=== PATIENT | male | born 1945 | race Hispanic/Latino ===

== ENCOUNTER 2017-02-18 16:32 | Inpatient (IN) | payer MEDICARE ==
--- NOTE | 2017-02-18 16:54 | ED PDOC ---
Arrival/HPI - General Time Seen by Provider: 02/18/17 16:40 Historian: Patient, Spouse, EMS - History of Present Illness Narrative History of Present Illness (Text): 02/18/17 16:40 A 71 year old male, whose past medical history includes Hepatitis C, diabetes, and Stroke, is brought into the emergency department via EMS for a possible stroke. EMS states they were called for left sided weakness/numbness and a left sided facial droop. Per patient's states the patient fell yesterday because of weakness to the left side. does note patient started to slur today. They mention patient was recently discharge from Rehab after being admitted for a stroke. Patient and family deny any fever, chest pain, shortness of breath, dizziness or other complaints at this time. PMD: Dr. Strange Time/Duration: 24 hours Symptom Onset: Sudden Symptom Course: Unchanged Quality: Other Activities at Onset: Rest Context: Home Past Medical History - Provider Review Nursing Documentation Reviewed: Yes - Cardiac Hx Pacemaker: No - Pulmonary Hx Respiratory Disorders: No - Neurological Hx Paralysis: No - HEENT Hx HEENT Disorder: No - Renal Hx Renal Disorder: No - Endocrine/Metabolic Hx Diabetes Mellitus Type 2: Yes - Hematological/Oncological Hx Blood Transfusions: No - Integumentary Hx Dermatological Disorder: No - Musculoskeletal/Rheumatological Hx Musculoskeletal Disorders: Yes Hx Falls: Yes (FREQUENT FALLING) Hx Unsteady Gait: Yes - Gastrointestinal Hx Gastrointestinal Disorders: No - Genitourinary/Gynecological Hx Genitourinary Disorders: No - Psychiatric Hx Psychophysiologic Disorder: Yes (SMOKES CIGARETTES PPD,H/O DRINKING BEER DAILY) Hx Substance Use: No - Anesthesia Hx Anesthesia Reactions: No Hx Malignant Hyperthermia: No Family/Social History - Physician Review Nursing Documentation Reviewed: Yes Family/Social History: Unknown Family HX Smoking Status: Current Some Days Smoker Hx Alcohol Use: No (Denies) Hx Substance Use: No Allergies/Home Meds Allergies/Adverse Reactions: Allergies No Known Allergies Allergy (Verified 01/14/17 23:09) Home Medications: Home Meds Medication Instructions Recorded Confirmed Pantoprazole Sodium [Protonix] 40 mg PO DAILY 01/07/17 02/18/17 Albuterol/Ipratropium [Duoneb 3 3 ml IH Q6H 01/15/17 02/18/17 mg/0.5 mg (3 ml) UD] Aspirin [Ecotrin] 81 mg PO DAILY 01/15/17 02/18/17 Metformin HCl [Glucophage] 500 mg PO BID 01/15/17 02/18/17 Docusate [Colace] 2 cap PO HS 02/05/17 02/18/17 Insulin Human Regular [Novolin R] 2 unit SC ACHS PRN 02/05/17 02/18/17 Lactulose [Generlac] 30 ml PO DAILY 02/05/17 02/18/17 Potassium Chloride [K-Tab ER] 10 meq PO DAILY 02/05/17 02/18/17 Temazepam [Restoril] 15 mg PO HS 02/05/17 02/18/17 Review of Systems - Physician Review All systems were reviewed & negative as marked: Yes - Review of Systems Constitutional: absent: Fevers Respiratory: absent: SOB Cardiovascular: absent: Chest Pain Gastrointestinal: absent: Abdominal Pain, Nausea, Vomiting Neurological: Focal Weakness (left sided), Speech Changes (slurred). absent: Headache, Dizziness Physical Exam Vital Signs Reviewed: Yes Vital Signs Temp Pulse Resp BP Pulse Ox 02/18/17 19:18 74 23 117/72 97 02/18/17 17:00 97.8 F 80 25 H 128/77 98 Temperature: Afebrile Blood Pressure: Normal Pulse: Regular Respiratory Rate: Tachypneic Appearance: Positive for: Ill-Appearing Pain Distress: None Mental Status: Positive for: Alert and Oriented X 3 Finger Stick Blood Glucose: 127 - Systems Exam Head: Present: Atraumatic, Normocephalic Pupils: Present: PERRL Extroacular Muscles: Present: EOMI Conjunctiva: Present: Normal Mouth: Present: Moist Mucous Membranes Pharnyx: Present: Normal. No: ERYTHEMA, EXUDATE Neck: Present: Normal Range of Motion Respiratory/Chest: Present: Good Air Exchange Cardiovascular: Present: Regular Rate and Rhythm, Normal S1, S2. No: Murmurs Abdomen: Present: Normal Bowel Sounds. No: Tenderness, Distention, Peritoneal Signs Upper Extremity: Present: Other (drift in the left arm). No: Cyanosis, Edema Lower Extremity: Present: Other (no effort against gravity of the left leg). No : Edema Neurological: Present: GCS=15, CN II-XII Intact. No: Speech Normal (mild slurred speech), Motor Func Grossly Intact Skin: Present: Warm, Dry, Normal Color. No: Rashes Psychiatric: Present: Alert, Oriented x 3, Normal Insight, Normal Concentration Medical Decision Making ED Course and Treatment: 02/18/17 16:40 Impression: A 71 year old male with left sided weakness and slurred speech. Differential Diagnosis include but are not limited to: TIA vs stroke vs mass Plan: -- EKG -- Head CT -- Chest X-ray -- Labs -- Urinalysis -- Reassess and disposition Prior Visits: Notes and results from previous visits were reviewed. The patient last presented to the emergency department on 01/07/17 for evaluation of left sided weakness and slurred speech. Code stroke was initiated. Patient CT showed a bubacute versus old infarct left basal ganglia extending to the left lincoln radiata and left centrum semiovale. No hemorrhage. No other significant abnormality. Patient had a NIHSS score of 3. Progress Notes: EKG: Ordered, reviewed, and independently interpreted the EKG. Rate : 86 BPM Rhythm : NSR Interpretation : Normal intervals, normal axis, no ST/T changes. 02/18/17 17:[address]: Creator : Christine Martino COMPARISON: Comparison is made to the previous study dated 01/07/2017 and MRI of the brain dated 01/07/2017 FINDINGS: HEMORRHAGE: No intracranial hemorrhage. BRAIN: There is suspicious for slightly high attenuation mass lesion at the left basal ganglia surrounding with large vasogenic edema and measures approximately 2.5 centimeter in the transverse diameter. There is mass effect on the left lateral ventricle associated with xzia-pp-lwsac midline shift of approximately 6 millimeter. Iuus-iv-nzvwiroi atrophy and moderate white matter changes are also noted. VENTRICLES: The left lateral ventricle appears smaller in size likely secondary to mass effect and compression by the adjacent mass lesion. CALVARIUM: Unremarkable. PARANASAL SINUSES: Unremarkable as visualized. No significant inflammatory changes. MASTOID AIR CELLS: Unremarkable as visualized. No inflammatory changes. OTHER FINDINGS: None. IMPRESSION: Findings suspicious for mass lesion at the left basal ganglia surrounding with large vasogenic edema. The differential diagnosis also includes but not limited to hemorrhagic mass lesion versus less likely subacute intraparenchymal hemorrhage. Further assessment by enhanced MRI is recommended. Mass effect on the left lateral ventricle and approximately 6 millimeter left-to -right midline shift noted. Sbkn-ie-kbvijcsd atrophy and white matter changes. 02/18/17 17:47 Chest X-ray Impression: As read by me, No active disease. 02/18/17 20:02 Patient is not a tpa candidate as symptoms started yesterday as well as etiology being possible mass and hemorrhage not ruled out. Case was discussed with Dr. Reza Hernandez - will give steroids. Case also discussed with Dr. Soler for admission to her service. Dr. Soler will also start keppra. - Lab Interpretations Lab Results: 02/18/17 17:07 02/18/17 17:07 Lab Results 02/18/17 17:07: WBC 5.7 D, RBC 3.53, Hgb 10.9 L, Hct 33.9 L, MCV 96.0, MCH 30.9 , MCHC 32.2, RDW 16.2 H, Plt Count 197, MPV 10.1, Gran % 65.6, Lymph % (Auto) 20.9 L, [place] % (Auto) 9.9 H, Eos % (Auto) 3.3, Baso % (Auto) 0.3, Gran # 3.75, Lymph # 1.2, [place] # 0.6, Eos # 0.2, Baso # 0.02, PT 11.1, INR 1.03, APTT 24.3, Sodium 140, Potassium 3.9, Chloride 104, Carbon Dioxide 26, Anion Gap 14, BUN 13 , Creatinine 0.6, Est GFR ( Amer) > 60, Est GFR (Non-Af Amer) > 60, Random Glucose 123 H, Calcium 9.1, Total Bilirubin 0.8, AST 51, ALT 43, Alkaline Phosphatase 68, Lactate Dehydrogenase 973 H, Total Creatine Kinase 56, Troponin I < 0.01 D, NT-Pro-B Natriuret Pep 193, Total Protein 7.3, Albumin 3.7 , Globulin 3.6, Albumin/Globulin Ratio 1.0 L, Triglycerides 225 H, Cholesterol 149, LDL Cholesterol Direct 61, HDL Cholesterol 48, Lipase 198 I have reviewed the lab results: Yes - RAD Interpretation Radiology Orders: 02/18/17 16:40 HEAD W/O (CODE STROKE) [CT] Stat CHEST ONE VIEW [RAD] Stat - Medication Orders Current Medication Orders: Discontinued Medications Dexamethasone (Decadron Inj) 10 mg IVP STAT STA Stop: 02/18/17 18:38 Last Admin: 02/18/17 19:30 Dose: 10 MG IVP Administration Document 02/18/17 19:30 SB (Rec: 02/18/17 19:30 SB [id number]) Charges for Administration # of IVP Administrations 1 NIHSS Scale ([place]) Time Performed: 16:40 - How Severe is the Stoke Baseline Level of Consciousness: 0=Alert LOC to Questions: 0=Both comments correct LOC to commands: 0=Obeys both correctly Best Gaze: 0=Normal Visual: 0=No visual loss Facial: 0=Normal Motor Arm - Left: 2=Falls before 10 sec Motor Arm - Right: 0=No drift Motor Leg - Left: 3=No effort against gravity (falls immediately) Motor Leg - Right: 0=No drift Limb Ataxia: 0=Absent Sensory: 0=Normal Best Language: 0=No aphasia Dysarthia: 1=Mild to moderate slurring Extinction & Inattention (Neglect): 0=Normal, no object Score: 6 Risk Level: Mod Stroke Risk - Scribe Statement The provider has reviewed the documentation as recorded by the Scribe Ruel Lakhani Provider Scribe Attestation: All medical record entries made by the Scribe were at my direction and personally dictated by me. I have reviewed the chart and agree that the record accurately reflects my personal performance of the history, physical exam, medical decision making, and the department course for this patient. I have also personally directed, reviewed, and agree with the discharge instructions and disposition. Disposition/Present on Arrival - Present on Arrival Any Indicators Present on Arrival: No History of DVT/PE: No History of Uncontrolled Diabetes: No Urinary Catheter: No History Surgical Site Infection Following: None - Disposition Have Diagnosis and Disposition been Completed?: Yes Diagnosis: Weakness of left side of body Disposition: HOSPITALIZED Disposition Time: 18:40 Patient Plan: Admission, Telemetry Condition: SERIOUS
--- NOTE | 2017-02-18 16:58 | CT ---
PROCEDURE: CT HEAD WITHOUT CONTRAST. HISTORY: L side weakness, slurred speech COMPARISON: Comparison is made to the previous study dated 01/07/2017 and MRI of the brain dated 01/07/2017 TECHNIQUE: Axial computed tomography images were obtained through the head/brain without intravenous contrast. Radiation dose: Total exam DLP = 846.5 mGy-cm. This CT exam was performed using one or more of the following dose reduction techniques: Automated exposure control, adjustment of the mA and/or kV according to patient size, and/or use of iterative reconstruction technique. FINDINGS: HEMORRHAGE: No intracranial hemorrhage. BRAIN: There is suspicious for slightly high attenuation mass lesion at the left basal ganglia surrounding with large vasogenic edema and measures approximately 2.5 centimeter in the transverse diameter. There is mass effect on the left lateral ventricle associated with bovh-wg-aixty midline shift of approximately 6 millimeter. Lzgq-mg-sxqozydj atrophy and moderate white matter changes are also noted. VENTRICLES: The left lateral ventricle appears smaller in size likely secondary to mass effect and compression by the adjacent mass lesion. CALVARIUM: Unremarkable. PARANASAL SINUSES: Unremarkable as visualized. No significant inflammatory changes. MASTOID AIR CELLS: Unremarkable as visualized. No inflammatory changes. OTHER FINDINGS: None. IMPRESSION: Findings suspicious for mass lesion at the left basal ganglia surrounding with large vasogenic edema. The differential diagnosis also includes but not limited to hemorrhagic mass lesion versus less likely subacute intraparenchymal hemorrhage. Further assessment by enhanced MRI is recommended. Mass effect on the left lateral ventricle and approximately 6 millimeter kqml-au-cajba midline shift noted. Wdlb-nk-qqvqydkh atrophy and white matter changes.
[2017-02-18 17:21] LABS: ADD MANUAL DIFF? NO
[2017-02-18 17:26] LABS: BASO # 0.02 K/mm3 (0.0-2.0); BASO % 0.3 % (0.0-3.0); EOS # 0.2 (0.0-0.7); EOS % 3.3 % (1.5-5.0); GRAN # 3.75 (1.4-6.5); GRAN % 65.6 % (50.0-68.0); HEMATOCRIT 33.9 % (42.0-52.0); LYMPH # 1.2 (1.2-3.4); LYMPH % 20.9 % (22.0-35.0); MEAN CORPUSCULAR HEMOGLOBIN 30.9 pg (25.0-35.0); MEAN CORPUSCULAR HGB CONC 32.2 g/dl (31.0-37.0); MEAN PLATELET VOLUME 10.1 fl (7.0-11.0); MONO # 0.6 (0.1-0.6); MONO % 9.9 % (1.0-6.0); PLATELET COUNT 197 10^3/uL (120.0-450.0); RED CELL DISTRIBUTION WIDTH 16.2 % (11.5-14.5); WHITE BLOOD COUNT 5.7 10^3/ul (4.5-11.0)
[2017-02-18 17:35] LABS: INR 1.03 (0.93-1.08); PARTIAL THROMBOPLASTIN TIME 24.3 Seconds (23.7-30.8)
[2017-02-18 17:43] LABS: ALKALINE PHOSPHATASE 68 U/L (38-133); ALT/SGPT 43 U/L (7-56); AST/SGOT 51 U/L (15-59); BILIRUBIN,TOTAL 0.8 mg/dL (0.2-1.3); BLOOD UREA NITROGEN 13 mg/dL (7-21); CALCIUM 9.1 mg/dL (8.4-10.5); CARBON DIOXIDE 26 mmol/L (21-33); CHLORIDE 104 mmol/L (98-107); CHOLESTEROL 149 mg/dL (130-200); GFR AFRICAN-AMERICAN > 60; GLUCOSE,RANDOM 123 mg/dL (70-110); LIPASE 198 U/L (23-300); POTASSIUM 3.9 mmol/L (3.6-5.0); SODIUM 140 mmol/L (132-148); TOTAL PROTEIN 7.3 g/dL (5.8-8.3)
[2017-02-18 17:56] LABS: TROPONIN I < 0.01 ng/mL
[2017-02-18] MEDS ORDERED: Insulin Reg-MEDIUM-Coverage SC PRN (19:59)
[2017-02-18] MEDS: Albuterol-Ipratrop 3 mg / 0.5 (3 ml) UD IH SCH (21:22)
[2017-02-18] MEDS: Insulin Reg-HIGH-Coverage SC SCH (22:12)
[2017-02-18 22:13] LABS: PH,URINE 5.5 (4.7-8.0); URINE BILIRUBIN NEGATIVE (NEGATIVE); URINE BLOOD NEGATIVE (NEGATIVE); URINE GLUCOSE (UA) NEGATIVE (NEGATIVE); URINE KETONE NEGATIVE (NEGATIVE); URINE LEUKOCYTE ESTERASE NEGATIVE Leu/uL (NEGATIVE); URINE PROTEIN TRACE mg/dL (<30 mg/dL); URINE UROBILINOGEN 0.2 E.U./dL (<1 E.U./dL)
[2017-02-18 22:16] LABS: URINE APPEARANCE CLEAR (CLEAR); URINE COLOR YELLOW (YELLOW)
[2017-02-18 22:20] LABS: URINE BACTERIA MOD (NEG); URINE EPITHELIAL CELLS 0 - 2 /hpf (0-5)
[2017-02-18 22:21] LABS: URINE AMORPHOUS SEDIMENT FEW
[2017-02-18] MEDS: levETIRAcetam 1,500 MG in Sodium Chloride 0.9% 100 ML IV SCH (22:30)
--- NOTE | 2017-02-18 23:10 | HP ---
The patient is 71-year-old, seen and examined. The patient was known to me from previous admission. He was admitted on 01/07 with generalized weakness. At that point he had MRI of the brain done that showed he had left-sided subacute basal ganglia infarct. At the same admission he was found to have cavitary lesion. He was treated with 1 month of antibiotic in acute rehab in [place], and transferr ed to [facility]. He was just discharged 4 or 5 days ago. The patient's noticed that he was get ting increasingly weak and has facial droop, so she brought him to Emergency Room for further evaluat ion. PAST MEDICAL HISTORY: Significant for: 1. Hypertension. 2. Hyperlipidemia. 3. Newly diagnosed noninsulin-dependent diabetes. 4. Morbid obesity. 5. Basal ganglia infarct with right-sided weakness. SOCIAL HISTORY: Significant for heavy smoking, but he quit upon recent admission. No significant surgical history. ALLERGIES: He is not allergic to any medications. MEDICATIONS AT HOME: He is on Restoril 15 mg at bedtime, potassium 10 mEq daily. He is on ferrous s ulfate 325 twice a day, Colace 200 daily, Protonix 40 daily, metformin 500 twice a day, lactulose as needed, atorvastatin 20 mg at bedtime, aspirin 81 daily, and nebulizer treatment. SOCIAL HISTORY: He is , lives with his . REVIEW OF SYSTEMS: Significant for generalized weakness and facial droop. On examination he is awake and alert. Easily falls asleep. VITAL SIGNS: He is afebrile, pulse 80, respirations 23, blood pressure 117/72. LUNGS: Bilateral fair airflow; has bilateral soft crackles and rhonchi. HEART: S1, S2 audible. ABDOMEN: Soft, nontender, no rebound, no guarding. NEUROLOGICALLY: He is awake and alert, moves all extremities, has generalized weakness. LABORATORY EXAMINATION: WBC is 5.7, hemoglobin 10.9, hematocrit 33.9, platelets 197. PT 11.1, INR 1 .03. Chemistry: Sodium 140, potassium 3.9, chloride 104, CO2 of 26, BUN 13, creatinine 0.6, blood s ugar of 123. LFTs are within normal limit. LDH is 975, troponin 0.01. Triglycerides 225, total cho lesterol 149. He had CT scan of the brain done. Findings suspicious for mass lesion at the left basal ganglia surr ounding, with large vasogenic edema. Possibility of hemorrhagic mass lesion versus less likely subac vish intraparenchymal hemorrhage. Mass effect on the left lateral ventricle, and approximately 6 mm l eft to the right midline shift. ASSESSMENT: 1. Right-sided weakness and facial droop. 1. Questionable left basal ganglia. No mass effect. 2. Edema. 3. Hypertension. 4. Non-insulin dependent diabetes. 5. Bilateral lung cavitary lesions. 6. Deconditioning. PLAN: The patient will be admitted on telemetry. Will start him on IV steroids, monitor his blood s ugar. Will start him on Keppra. Dr. Ryan Moffett will be consulted for a CT-guided biopsy of lung le rosaura, and Dr. Parmar will be consulted. Will monitor his blood sugar closely. Turner Soler MD cc: [phone] TT: 02/18/2017 23:09:45 jn
[2017-02-19] MEDS: Albuterol-Ipratrop 3 mg / 0.5 (3 ml) UD IH SCH ×4 (03:47→19:20)
[2017-02-19 07:20] LABS: ADD MANUAL DIFF? NO
[2017-02-19 07:27] LABS: GRAN # 3.16 (1.4-6.5); GRAN % 69.9 % (50.0-68.0); HEMATOCRIT 31.7 % (42.0-52.0); LYMPH # 1.2 (1.2-3.4); LYMPH % 26.8 % (22.0-35.0); MEAN CELL VOLUME 95.8 fL (80.0-105.0); MEAN CORPUSCULAR HEMOGLOBIN 30.5 pg (25.0-35.0); MEAN CORPUSCULAR HGB CONC 31.9 g/dl (31.0-37.0); MEAN PLATELET VOLUME 10.2 fl (7.0-11.0); MONO # 0.2 (0.1-0.6); MONO % 3.3 % (1.0-6.0); PLATELET COUNT 205 10^3/uL (120.0-450.0); RED CELL DISTRIBUTION WIDTH 15.9 % (11.5-14.5); WHITE BLOOD COUNT 4.5 10^3/ul (4.5-11.0)
[2017-02-19 07:45] LABS: ALKALINE PHOSPHATASE 65 U/L (38-133); ALT/SGPT 47 U/L (7-56); AST/SGOT 40 U/L (15-59); BILIRUBIN,TOTAL 0.7 mg/dL (0.2-1.3); BLOOD UREA NITROGEN 8 mg/dL (7-21); CARBON DIOXIDE 29 mmol/L (21-33); CHLORIDE 104 mmol/L (98-107); GFR AFRICAN-AMERICAN > 60; GLUCOSE,RANDOM 134 mg/dL (70-110); POTASSIUM 3.9 mmol/L (3.6-5.0); SODIUM 140 mmol/L (132-148)
--- NOTE | 2017-02-19 08:42 | RAD ---
PROCEDURE: CHEST RADIOGRAPH, 1 VIEW HISTORY: stroke COMPARISON: 01/07/2017 FINDINGS: LUNGS: Clear. PLEURA: No pneumothorax or pleural fluid seen. CARDIOVASCULAR: Normal. OSSEOUS STRUCTURES: No significant abnormalities. VISUALIZED UPPER ABDOMEN: Normal. OTHER FINDINGS: None. IMPRESSION: No active disease.
[2017-02-19] MEDS: Dexamethasone 4 mg/1 ml IVP SCH ×3 (10:03→17:52)
[2017-02-19] MEDS: Insulin Reg-HIGH-Coverage SC SCH ×4 (10:04→21:57)
[2017-02-19] MEDS: levETIRAcetam 1,500 MG in Sodium Chloride 0.9% 100 ML IV SCH (10:04)
[2017-02-19] MEDS: Potassium Chloride 10 mEq ER Tab PO SCH (10:05)
[2017-02-19] MEDS: Pantoprazole 40 mg EC Tab PO SCH (10:05)
--- NOTE | 2017-02-19 12:04 | CON ---
DATE: 02/18/2017 NEUROLOGY CONSULTATION CHIEF COMPLAINT: CAT scan showing suspicious mass lesion of the left basal ganglia with surrounding large vasogenic edema. HISTORY OF PRESENTING ILLNESS: The patient is a 71-year-old man well-known from his past admission i n 12/2016 with past medical history of hypertension, dyslipidemia, efa-utunief-pozafiorh diabetes peg itus with the last A1c of 7.5, history of seizures on Keppra 500 mg p.o. b.i.d. was diagnosed with a brain neoplasm, with a history of left-sided subacute infarct in the basal ganglia adjacent to the co debra radiata. He was placed on aspirin with some mild residual right-sided weakness, who came in, an d was found to have a cavitary lesion when he was at [facility] for rehab, was transferred to [facility], came to the hospital, was noticing gradually increasing weakness, especially on the right s yves and right facial droop. Therefore, he came to the hospital for further evaluation. His CAT scan of the head, which a new finding to me, showing suspicious mass lesion of the left basal ganglia surrounding, with large vasogenic edema with mass effect in the left ventricle, approximatel y 6 mm left to right shift, which was not seen on the prior CAT scan, with an underlying left basal g anglia infarct in the past. Apparently, he was following commands. He has mild residual right-sided weakness and right facial dr oop. He is following commands otherwise. Blood pressures are stable. He was placed on Decadron 4 mg IV t.i.d. for vasogenic edema, and he is on aspirin and Lipitor for stroke prevention. MRI of the brain has been ordered. PAST MEDICAL HISTORY: Hypertension, hyperlipidemia, history of left basal ganglia infarct with resid ual right-sided weakness, insulin-dependent diabetes mellitus, morbid obesity, diagnosed with cavitar y lesion. SOCIAL HISTORY: Significant for heavy of smoking, quit upon recent admission. SURGICAL HISTORY: None. ALLERGIES: No known allergies. MEDICATIONS: Reviewed by nursing reconciliation sheet. REVIEW OF SYSTEMS: A 14-point review of systems is negative except for the HPI. PHYSICAL EXAMINATION: VITAL SIGNS: Temperature 97.5, pulse rate ____. Blood pressure is ____. Respiratory rate 20, oxyge n saturation 97% by room air. GENERAL: The patient is sitting up in bed in no acute distress. HEENT: Atraumatic, normocephalic. PERRLA. Extraocular muscles intact. NECK: Supple. No JVD, no adenopathy. LUNGS: Clear to auscultation with some mild decreased breath sounds. HEART: S1, S2, normal rate and rhythm. No murmurs, rubs, or gallops. ABDOMEN: Soft, nontender, nondistended. Bowel sounds present. EXTREMITIES: No clubbing, no cyanosis. Peripheral pulses are 2+ felt bilaterally. NEUROLOGIC: The patient is alert, oriented to person, place, ____ year. Speech is fluent without an y errors. He has mild dysarthria, but no aphasia noted. Cranial nerves II-XII are intact except for right facial droop. MOTOR: He has right upper and right lower extremity 4+ to 5-/5 right-sided weakness with prior left basal ganglia MCA, CVA. Left side upper and lower extremities are intact. Toes are upgoing bilatera lly. Sensory: Withdraws to localized noxious stimulus. Light touch is intact ____ calves bilateral ly, decreased vibration of the toes. DTRs 2+ throughout, 1 at the ankles. COORDINATION: Mksqir-jc-nphv intact, but ____ on the right due to mild residual right-sided weakness . LABORATORY DATA: Sodium is 140, potassium 3.9, chloride 104, carbon dioxide 29, BUN of 8, creatinine 0.5, random glucose 134. ASSESSMENT AND PLAN: This is a 71-year-old man with a history of hypertension, hyperlipidemia, and n on-insulin dependent diabetes mellitus with an A1c of 7.5 with a recent left basal ganglia infarct __ __ lincoln radiata, and residual right-sided weakness, who was at rehab and [facility], and also was fo und to have cavitary lesions in the lungs who came in ____ right-sided weakness and right facial droo p, and CAT scan of the head showed suspicious mass-like lesion in the left basal ganglia with surroun ding large vasogenic edema with mass effect in the left ventricle, which was not there on his prior i magings from 12/2016. His currently presenting symptoms are secondary to a left basal ganglia with ma ss lesion with surrounding large vasogenic edema. ____. At this time, I would recommend: 1. MRI of the brain to assess for further detailed description of the mass lesion. 2. Get a neurosurgical consult. 3. Investigate those cavitary lesions ____ malignancy. Get oncology on board. 4. Continue with aspirin and Lipitor for stroke prevention. 5. Keppra for seizure prophylaxis. 6. Keep his blood pressure between 140-180. Continue his metformin, insulin sliding scale. At this time, continue with current present medical management. ____ need acute rehab once the inves tigation of his left mass-type lesion on the left basal ganglia is investigated. Thank you for this consult. Akshat Hernandez MD cc: [phone] TT: 02/19/2017 12:00:18 Confirmation # [id number] Dictation # [id number] 02/19/2017 11:04:20
--- NOTE | 2017-02-19 12:55 | PN ---
DATE: 02/19/2017 SUBJECTIVE: The patient is a 71-year-old, seen and examined, seems to be awake and alert, able to co mmunicate. Still has scanty cough. No nausea, vomiting, no diarrhea. PHYSICAL EXAMINATION: VITAL SIGNS: He is afebrile, pulse 75, respirations 16, blood pressure 121/78. LUNGS: Bilateral fair airflow, no rhonchi or crackle. HEART: S1, S2 audible. No murmur. ABDOMEN: Soft, obese, nontender, no rebound, no guarding. NEUROLOGIC: He is awake and alert. No focal deficit. LABORATORY EXAMINATION: WBC is 4.5, hemoglobin 10.1, hematocrit 31.7, platelet 205. Chemistry: Sod ium 140, potassium 3.9, chloride 104, CO2 29, BUN 8, creatinine 0.5, blood sugar of 134. LFTs are wi thin normal limits. ASSESSMENT: 1. Questionable transient ischemic attack. No residual deficits. 2. Left basal ganglia infarct in lincoln radiata with central left-sided weakness. 3. Bilateral pulmonary cavitary lesions. 4. Morbid obesity. 5. Non-insulin dependent diabetes. 6. Hypertension. 7. History of smoking. PLAN: The patient is scheduled to have MRI of the brain done. For now he is on dexamethasone. Cont inue him on nebulizer treatment. He is on aspirin 81 daily. We will monitor blood sugars. He has b een started on Keppra. I also discussed with Dr. Parmar. He seems to agree that we should biopsy h is pulmonary lesions to determine if this is infectious or malignant, so Dr. Ryan Moffett is consulted . We will request for physical therapy evaluation also and we will continue to monitor his blood sug ar and his neurological status. Turner Soler MD cc: [phone] TT: 02/19/2017 12:54:18 Confirmation # [id number] Dictation # [id number] wilmar
[2017-02-19] MEDS ORDERED: Gadodiamide 287 MG/ML VIAL (20ML) IV ONE (13:25)
--- NOTE | 2017-02-19 15:37 | CARD ---
APPROVED REPORT EKG Measurement Heart [id number] [place] [id number] <Conclusion> Normal sinus rhythm Possible Left atrial enlargement Borderline ECG
--- NOTE | 2017-02-19 16:10 | MRI ---
PROCEDURE: MRI BRAIN WITH AND WITHOUT CONTRAST HISTORY: Left basal ganglia mass lesion COMPARISON: Noncontrast head CT from 02/18/2017 and 01/07/2017. MRI brain without and with intravenous contrast from 01/07/2017. TECHNIQUE: Multiplanar, multisequence MR images of the brain were obtained with and without intravenous contrast enhancement. 20 cc gadolinium was injected intravenously. FINDINGS: HEMORRHAGE: There is no acute intracranial hemorrhage with DWI: No evidence of an acute or early subacute infarction. BRAIN PARENCHYMA: There is 2.2 x 2.3 cm avidly enhancing round mass in the left basal ganglia extending to the lincoln radiata are with significant surrounding vasogenic edema, mass effect and effacement of the right lateral ventricle and 5 mm midline shift from left to right. There is also increased magnetic susceptibility CT in the enhancing mass related to old hemorrhage. There is significant vasogenic edema extends to the right frontal, parietal and temporal lobes. Edema also extends into the left cerebral peduncle, caudate nucleus and thalamus. There is no evidence of uncal herniation. Also noted is a 12 mm enhancing lesion in the left anterior insula with surrounding vasogenic edema. There are mild chronic microangiopathic changes. There is no extra-axial fluid collection. ENHANCEMENT: There is normal intravascular enhancement. There is no abnormal leptomeningeal enhancement. VENTRICLES: Effacement of the left lateral ventricle. Normal size of the right lateral, 3rd and 4th ventricles. CRANIUM: There is normal bone marrow signal pattern. ORBITS: Grossly unremarkable. PARANASAL SINUSES/MASTOIDS: Predominantly clear. VASCULAR SYSTEM: There are normal signal voids in the larger intracranial arteries. OTHER FINDINGS: None . IMPRESSION: 1. Interval significant increase in size of left basal ganglia mass lesion with significant surrounding vasogenic edema, mass effect and effacement of the left lateral ventricle and 5 mm midline shift from left to right. No evidence of uncal herniation. 2. Also noted is a 12 mm enhancing lesion in the left anterior insula. The constellation of findings is concerning for metastatic lesions. Primary neoplasm such as glioblastoma is a less likely consideration given past presence of hemorrhagic products and 2nd lesion.
[2017-02-19] MEDS: levETIRAcetam 500mg IVPB 100 ML IV SCH (21:58)
--- NOTE | 2017-02-19 23:07 | CON ---
DATE: 02/19/[address] Parmar. CHIEF COMPLAINT: Facial droop, weakness. HISTORY OF PRESENT ILLNESS: The patient is a 71-year-old white male, a resident of [facility] discharged recently with increasing weakness and facial droop, as per the patient's who was at the bedside, with the patient seen sitting up in bed on the telemetry floor. The patient is known to suffer from lung lesions with tissue diagnosis planned for tomorrow with biopsy by Dr. Ryan Moffett. He is otherwise in no acute distress at this time. He also is now known to have a mass lesion in th e left basal ganglia, with the patient in no acute distress at this time. ALLERGIES: No known allergies. MEDICATIONS: Include Restoril, potassium, iron, Colace, Protonix, metformin, lactulose, atorvastatin and aspirin, nebulizer treatments. PAST MEDICAL HISTORY: Significant for hepatitis C, non-insulin diabetes mellitus, dyslipidemia, hype rtension, obesity, new basal ganglia infarct with right-sided weakness. Also significant for bilater al cavitary lung lesions, with anemia, status post transfusion? FAMILY HISTORY AND SOCIAL HISTORY: He is , at the bedside, former heavy smoker use of gr eater than 50 pack years smoking, quit recently. History of heavy alcohol use, also quit recently, o therwise noncontributory. REVIEW OF SYSTEMS: Essentially negative to questioning except as above. PHYSICAL EXAMINATION: VITAL SIGNS: Temperature 98.4, pulse 76, respirations 20, blood pressure 125/82, with a pulse ox of 97%. HEENT: Unremarkable. NECK: Supple. HEART: Regular rate, occasional ectopic beat. LUNGS: Decreased breath sounds. ABDOMEN: Obese, soft, and nontender. EXTREMITIES: No edema. SKIN: Warm, dry and clear. 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 LABORATORY DATA: The patient's labs were done. White blood cell count of 4.5, hemoglobin 10.1, janessa tocrit 31.7, platelet count of 205,000 with a chem metabolic panel completely within normal range exc ept for nonfasting glucose 134. LDH yesterday of 973. The urinalysis showed trace of protein, otherwise negative. His INR was 1.03 yesterday. However, th e patient did have TB testing acute FT done on 01/10/2017 and 01/16/2017 showing intermediate results, with Dr. Posadas having seen the patient in the past. We will ask for reconsult as per Dr. Jeff pepe's recommendation. The patient's testing included an MRI of the brain done earlier today. It was read as interval incre ase in size of left basal ganglia mass lesion with significant surrounding vasogenic edema, mass effe ct and effacement of the left lateral ventricle 5 mm midline shift from left to right, no evidence of uncal herniation, 12 mm enhancing lesion in the left anterior insula, constellation finding concerni ng for metastatic lesions, primary neoplastic glioblastoma is less likely. The patient had a CT scan of the head done yesterday. It was read as findings suspicious for mass le rosaura left basal ganglia with surrounding large vasogenic edema, mass effect lateral ventricle approxi mately 6 mm left to right midline shift. The patient had an EKG done yesterday. It was read as normal sinus rhythm, possible left atrial enla rgement. Chest x-ray was done yesterday. It was read as no active disease; however, CT scan of the chest done on 01/27/2017 done in [place] was read as persistent bilateral lower lobe soft tissue mass lesions, persistent 9 mm nodule right upper lobe as well as worsening hazy opacity, ____ opacity righ t upper lobe since previous exam, central bronchiectasis, small bilateral pleural effusions, pulmonar y hypertension. ASSESSMENT: Bilateral lower lobe cavitary lesions infectious versus neoplastic for biopsy tomorrow, metastatic lesions to the brain, right-sided weakness, facial droop, rule out cerebrovascular acciden t, hypertension, non-insulin diabetes mellitus, deconditioning, anemia. PLAN: After conversation with Dr. Parmar we are to await tissue diagnosis, to continue present medi milana regimen as per Dr. Soler with medications to include Decadron, DuoNeb, Ecotrin, insulin coverag e, Keppra, potassium, Lipitor, Protonix, Glucophage. Prognosis for this patient is guarded. We will monitor clinically and with labs. Amrit Godinez MD cc: [phone] TT: 02/19/2017 23:06:14 Confirmation # [id number] Dictation # [id number] jn
[2017-02-20] MEDS: Albuterol-Ipratrop 3 mg / 0.5 (3 ml) UD IH SCH ×4 (02:23→19:53)
[2017-02-20] MEDS ORDERED: Sodium Chloride 0.45% 1,000 ML IV SCH (07:00)
[2017-02-20 07:17] LABS: ADD MANUAL DIFF? NO
[2017-02-20 07:28] LABS: GRAN # 5.38 (1.4-6.5); GRAN % 71.6 % (50.0-68.0); HEMATOCRIT 31.4 % (42.0-52.0); LYMPH # 1.5 (1.2-3.4); LYMPH % 19.9 % (22.0-35.0); MEAN CELL VOLUME 95.4 fL (80.0-105.0); MEAN CORPUSCULAR HEMOGLOBIN 31.3 pg (25.0-35.0); MEAN CORPUSCULAR HGB CONC 32.8 g/dl (31.0-37.0); MEAN PLATELET VOLUME 10.2 fl (7.0-11.0); MONO # 0.6 (0.1-0.6); MONO % 8.5 % (1.0-6.0); PLATELET COUNT 219 10^3/uL (120.0-450.0); RED CELL DISTRIBUTION WIDTH 16.2 % (11.5-14.5); WHITE BLOOD COUNT 7.5 10^3/ul (4.5-11.0)
[2017-02-20] MEDS ORDERED: Iohexol 350 MG/100 ML VIAL ONE (08:00)
[2017-02-20 08:03] LABS: ALB/GLOB RATIO 1.1 (1.1-1.8); ALKALINE PHOSPHATASE 55 U/L (38-133); ALT/SGPT 43 U/L (7-56); AST/SGOT 42 U/L (15-59); BILIRUBIN,TOTAL 0.7 mg/dL (0.2-1.3); BLOOD UREA NITROGEN 10 mg/dL (7-21); CALCIUM 9.1 mg/dL (8.4-10.5); CARBON DIOXIDE 29 mmol/L (21-33); CHLORIDE 103 mmol/L (98-107); GFR AFRICAN-AMERICAN > 60; GLUCOSE,RANDOM 108 mg/dL (70-110); POTASSIUM 3.8 mmol/L (3.6-5.0); SODIUM 141 mmol/L (132-148); TOTAL PROTEIN 6.9 g/dL (5.8-8.3)
[2017-02-20] MEDS: Insulin Reg-HIGH-Coverage SC SCH ×4 (08:18→22:23)
--- NOTE | 2017-02-20 09:04 | CT ---
CT chest with IV contrast Indication: rule out cavitary lesions / masses Technique: Contiguous axial images were obtained through the chest with intravenous contrast enhancement. Sagittal and coronal reconstructions were generated and reviewed. This CT exam was performed using 1 or more of the falling dose reduction techniques: Automated exposure control, adjustment of the MAA and/or kV according to patient size, and/or use of iterative reconstruction technique. IV Contrast: 150 mL Omnipaque 350 Radiation dose (DLP): 646.93 MGy-cm. Comparison: Chest x-ray performed 02/18/17. CT chest without contrast performed 01/08/17 Findings: Visualized portions of the inferior thyroid gland appear unremarkable. The mediastinal and hilar vascular structures appear grossly unremarkable. The heart appears within normal limits of size. Coronary artery calcifications. No large central pulmonary embolus identified. Question artifact versus filling defect within the left upper lobe pulmonary artery branch (series 2, image 37). Bilateral cavitary mass is within the lower lobes, 1.7 cm left lower lobe and 2.0 cm right lower lobe adjacent to the diaphragm, similar prior study. Bibasilar atelectasis. No pleural effusion. No pneumothorax. Limited visualization of the upper abdomen demonstrates 18 mm probable splenule. Otherwise unremarkable. Degenerative changes of the spine. Mild kyphosis. Impression: Bilateral cavitary mass is within the lower lobes, 1.7 cm left lower lobe and 2.0 cm right lower lobe adjacent to the diaphragm, similar prior study. Considerations include cavitary malignant neoplasm versus infection (such as tuberculosis or fungal infection). Filling defect consistent with thrombus involving left upper lobe pulmonary artery branch. Findings discussed with the patient's RN Mia on 02/20/17 at 8:55 a.m.
[2017-02-20] MEDS: Potassium Chloride 10 mEq ER Tab PO SCH (09:51)
[2017-02-20] MEDS: Pantoprazole 40 mg EC Tab PO SCH (09:51)
[2017-02-20] MEDS: Dexamethasone 4 mg/1 ml IVP SCH ×3 (09:51→17:32)
[2017-02-20] MEDS: levETIRAcetam 500mg IVPB 100 ML IV SCH ×2 (09:52→22:04)
[2017-02-20] MEDS ORDERED: Midazolam 2 MG/2 ML VIAL ONE (10:44)
--- NOTE | 2017-02-20 12:18 | PN ---
DATE: 02/20/2017 SUBJECTIVE: The patient is a 71-year-old, seen and examined, lying in bed, complained of left-sided chest pain and went through the chest posteriorly also, still has scanty cough. No fever or chills, no nausea, vomiting, no diarrhea. PHYSICAL EXAMINATION: VITAL SIGNS: He is afebrile, pulse 59, respirations 22, blood pressure 134/75. LUNGS: Bilateral fair airflow, no rhonchi or crackle. HEART: S1, S2 audible. ABDOMEN: Soft, obese, nontender, no rebound, no guarding. NEUROLOGIC: He is awake and alert, communicative. EXTREMITIES: Bilateral leg, no edema. LABORATORY EXAMINATION: WBC 7.5, hemoglobin 10.3, hematocrit 31.4, platelet 219. Chemistry: Sodiu m 141, potassium 3.8, chloride 103, CO2 29, BUN 10, creatinine 0.6, blood sugar of 108. He had CT sc an of the chest done today that shows bilateral cavitary masses within the lower lobes, 1.7 cm left l ower lobe and 2 cm right lower lobe adjacent to the diaphragm similar to prior study and there is a q uestionable thrombus in the left upper lobe. ASSESSMENT: 1. Bilateral lower lung cavitary lesions, probably neoplastic because patient already got antibioti c for 4-6 weeks, antifungal and antibiotic. Questionable metastatic brain lesion. 2. History of left basal ganglia mass with vasogenic edema. 3. Hypertension. 4. Morbid obesity. 5. Noninsulin dependent diabetes. 6. Deconditioning and difficulty walking. PLAN: The patient is getting a tissue diagnosis. He is scheduled for CT-guided biopsy. We will fol low up the result. In the meantime, we will keep him on dexamethasone, monitor his blood sugar. Con tinue him on aspirin. We will discuss with Dr. Parmar. Probably, we can start him on Eliquis on Pr adaxa. Because of questionable malignancy, he is high risk for pulmonary embolism anyway. I will or tommy for bilateral leg Doppler study to rule out a DVT because he is not very ambulatory. We will ree valuate the patient in a.m. Turner Soler MD cc: [phone] TT: 02/20/2017 12:17:49 Confirmation # [id number] Dictation # [id number] tn
--- NOTE | 2017-02-20 13:55 | RAD ---
HISTORY: lt lung bx COMPARISON: 02/18/2017 FINDINGS: LUNGS: Left lung density. No evidence of pneumothorax PLEURA: No significant pleural effusion identified, no pneumothorax apparent. CARDIOVASCULAR: Normal. OSSEOUS STRUCTURES: No significant abnormalities. VISUALIZED UPPER ABDOMEN: Normal. OTHER FINDINGS: None. IMPRESSION: No evidence of pneumothorax
--- NOTE | 2017-02-20 17:33 | CT ---
PROCEDURE: CT guided left lower lobe lung biopsy. HISTORY: Cavitary pulmonary nodules. Brain lesion PHYSICIAN(S): Ryan Moffett MD. TECHNIQUE: The relative risks and indications of the procedure were explained to the patient and consent obtained. The patient was placed prone on the CT scanner and preliminary images through the lung bases obtained. Conscious sedation and monitoring were provided throughout the procedure by a nurse. There is an irregular cavitary 2 cm opacity in the peripheral aspect of left lower lobe.. A left posterior oblique approach was selected and the area prepped and draped in the usual sterile fashion. 1% Xylocaine was used to anesthetize the skin and soft tissues. A 19 gauge guiding needle was advanced into the 2 cm left lower lobe nodule. Its position was confirmed with CT. Using coaxial technique, multiple core biopsies were obtained. The postprocedure images show no evidence of large pneumothorax or significant hemorrhage. IMPRESSION: 1. CT-guided left lower lobe lung biopsy as described above.
--- NOTE | 2017-02-20 17:46 | CP.PCM.CON ---
History of Present Illness - History of Present Illness History of Present Illness: 71 year old male with PMH of hepatitis C, DM, history of brain tumor (which apparently resolved without specific treatment), obesity with BMI 32 was recently admitted in [facility] for CVA. He was also noted have cavitary lesions in the lower lobes. He was treated for bacterial pneumonia then. He is now back admitted for possible new onset stroke or brain tumor and work up is in progress. Infectious diseases consult is requested to re-evaluate the patient's cavitary lesions in the lungs. Currently the patient is comfortable in bed. He has no fever or chills, no nausea or vomiting, no chest pain, no SOB, no cough or colds, no diarrhea, no dysuria, no chest pain, no abdominal pain. He recently came from rehab. He has not traveled outside of [place] in the past 3 months. Review of Systems - Review of Systems All systems: reviewed and no additional remarkable complaints except (as per HPI ) Past Patient History - Past Medical History & Family History Past Medical History?: Yes - Past Social History Smoking Status: Former Smoker - CARDIAC Hx Hypertension: Yes - PULMONARY Hx Respiratory Disorders: No - NEUROLOGICAL HX Cerebrovascular Accident: Yes - HEENT Hx HEENT Problems: No - RENAL Hx Chronic Kidney Disease: No - ENDOCRINE/METABOLIC Hx Diabetes Mellitus Type 2: Yes - HEMATOLOGICAL/ONCOLOGICAL Hx Hepatitis C: Yes - INTEGUMENTARY Hx Dermatological Problems: No - MUSCULOSKELETAL/RHEUMATOLOGICAL Hx Falls: Yes Hx Unsteady Gait: Yes (frequent falling) - GASTROINTESTINAL Hx Gastrointestinal Disorders: No - GENITOURINARY/GYNECOLOGICAL Hx Genitourinary Disorders: No - PSYCHIATRIC Hx Substance Use: No Other/Comment: smoking - 1 ppd, non since december - SURGICAL HISTORY Hx Surgeries: No - ANESTHESIA Hx Anesthesia Reactions: No Hx Malignant Hyperthermia: No Meds Allergies/Adverse Reactions: Allergies Allergy/AdvReac Type Severity Reaction Status Date / Time No Known Allergies Allergy Verified 01/14/17 23:09 - Medications Medications: Current Medications Albuterol/Ipratropium (Duoneb 3 Mg/0.5 Mg (3 Ml) Ud) 3 ml IH Q6H JESSICA Last Admin: 02/19/17 19:20 Dose: 3 ml Aspirin (Ecotrin) 81 mg PO DAILY JESSICA Last Admin: 02/19/17 10:03 Dose: 81 mg Atorvastatin Calcium (Lipitor) 20 mg PO HS JESSICA Last Admin: 02/18/17 22:30 Dose: 20 mg Dexamethasone (Decadron Inj) 4 mg IVP TID [facility] Last Admin: 02/19/17 17:52 Dose: 4 mg Docusate Sodium (Colace) 200 mg PO HS [facility] Last Admin: 02/18/17 22:16 Dose: Not Given Levetiracetam (Keppra 500mg Ivpb) 100 mls @ 460 mls/hr IV Q12 [facility] Sodium Chloride (Sodium Chloride 0.45%) 1,000 mls @ 80 mls/hr IV .[id number] [facility] Stop: 02/20/17 18:00 Insulin Human Regular (Humulin R Med) 0 units SC ACHS PRN; Protocol PRN Reason: Serum glucose Insulin Human Regular (Humulin R High) 0 units SC ACHS JESSICA PRN Reason: Protocol Last Admin: 02/19/17 17:54 Dose: Not Given Metformin HCl (Glucophage) 500 mg PO BID [facility] Last Admin: 02/19/17 17:53 Dose: 500 mg Pantoprazole Sodium (Protonix Ec Tab) 40 mg PO DAILY [facility] Last Admin: 02/19/17 10:05 Dose: 40 mg Potassium Chloride (Klor-Con 10) 10 meq PO DAILY [facility] Last Admin: 02/19/17 10:05 Dose: 10 meq Physical Exam - Constitutional Appears: Non-toxic, No Acute Distress - Head Exam Head Exam: NORMAL INSPECTION - ENT Exam ENT Exam: Mucous Membranes Moist - Neck Exam Neck exam: Negative for: Lymphadenopathy, Meningismus - Respiratory Exam Respiratory Exam: Decreased Breath Sounds - Cardiovascular Exam Cardiovascular Exam: +S1, +S2 - GI/Abdominal Exam GI & Abdominal Exam: Soft. absent: Tenderness Results - Vital Signs Recent Vital Signs: Last Vital Signs Temp 98.4 F 02/19/17 18:00 Pulse 76 02/19/17 18:00 Resp 20 02/19/17 18:00 BP 125/82 02/19/17 18:00 Pulse Ox 97 02/19/17 06:00 - Labs Result Diagrams: 02/20/17 07:00 02/20/17 07:00 Labs: Laboratory Results - last 24 hr 02/18/17 02/18/17 02/18/17 21:12 21:45 22:10 WBC RBC Hgb Hct MCV MCH MCHC RDW Plt Count MPV Gran % Lymph % (Auto) [place] % (Auto) Eos % (Auto) Baso % (Auto) Gran # Lymph # [place] # Eos # Baso # Sodium Potassium Chloride Carbon Dioxide Anion Gap BUN Creatinine Est GFR ( Amer) Est GFR (Non-Af Amer) POC Glucose (mg/dL) 124 H Random Glucose Calcium Total Bilirubin AST ALT Alkaline Phosphatase Total Protein Albumin Globulin Albumin/Globulin Ratio Urine Color Yellow Urine Appearance Clear Urine pH 5.5 Ur Specific [place] 1.025 Urine Protein Trace H Urine Glucose (UA) Negative Urine Ketones Negative Urine Blood Negative Urine Nitrate Negative Urine Bilirubin Negative Urine Urobilinogen 0.2 Ur Leukocyte Esterase Negative Urine RBC 1 - 3 Urine WBC 2 - 5 Ur Epithelial Cells 0 - 2 Amorphous Sediment Few Urine Bacteria Mod Urine Other Uyeast Blood Type O POSITIVE Antibody Screen Negative 02/19/17 06:45 WBC 4.5 D RBC 3.31 L Hgb 10.1 L Hct 31.7 L MCV 95.8 MCH 30.5 MCHC 31.9 RDW 15.9 H Plt Count 205 MPV 10.2 Gran % 69.9 H Lymph % (Auto) 26.8 [place] % (Auto) 3.3 Eos % (Auto) 0.0 L Baso % (Auto) 0.0 Gran # 3.16 Lymph # 1.2 [place] # 0.2 Eos # 0.0 Baso # 0.00 Sodium 140 Potassium 3.9 Chloride 104 Carbon Dioxide 29 Anion Gap 11 BUN 8 Creatinine 0.5 Est GFR ( Amer) > 60 Est GFR (Non-Af Amer) > 60 POC Glucose (mg/dL) Random Glucose 134 H Calcium 9.0 Total Bilirubin 0.7 AST 40 ALT 47 Alkaline Phosphatase 65 Total Protein 7.0 Albumin 3.4 Globulin 3.5 Albumin/Globulin Ratio 1.0 L Urine Color Urine Appearance Urine pH Ur Specific [place] Urine Protein Urine Glucose (UA) Urine Ketones Urine Blood Urine Nitrate Urine Bilirubin Urine Urobilinogen Ur Leukocyte Esterase Urine RBC Urine WBC Ur Epithelial Cells Amorphous Sediment Urine Bacteria Urine Other Blood Type Antibody Screen Assessment & Plan - Assessment and Plan (Free Text) Plan: Assessment Multiple small cavitary lesions in the lower lobes of both lungs, - work up last month did not yield septic emboli or endocarditis - need to rule out malignancy; unlikely TB (usually TB would have one large apical cavity, would have mediastinal lymph node involvement, has no history of exposure, has no specific symptoms, even thoug the Quantiferon TB test then was indeterminate) - work up from previous month as did not proveSarcoidosis, fungal infections or Granulomatous polyangiitis (formerly Mark's granulomatosis) - S/P biopsy of cavitary lesion CT-guided today Subacute left basal ganglia CVA hepatitis C DM history of brain tumor (which apparently resolved without specific treatment) obesity with BMI 32 Plan Patient was previously treated with antibiotics and antifungals but no change in size of cavities - will follow up results of the biopsy Will monitor clinically
--- NOTE | 2017-02-20 22:53 | US ---
HISTORY: Leg pain and swelling. Evaluate for DVT PHYSICIAN(S): Ryan Moffett MD. TECHNIQUE: Duplex sonography and color-flow Doppler with graded compression were used to evaluate the deep venous systems of both lower extremities. The exam is limited by edema FINDINGS: The visualized deep venous systems of both lower extremities are sonographically normal and compressible. Normal wave forms and augmentation are seen. There is no sonographic evidence for deep venous thrombosis in the visualized segments of both lower extremities. IMPRESSION: No sonographic evidence for deep venous thrombosis in the visualized segments of both lower extremities.
[2017-02-20] MEDS ORDERED: Enoxaparin 60 mg Syringe SC STA (23:13)
--- NOTE | 2017-02-20 23:35 | PN ---
DATE: 02/20/2017 The patient is in room 263, bed 1. REASON FOR CONSULTATION: This patient was seen by us in the office initially last week for duane whitehead and recommending treatments for newly discovered cavitary lesions in both lung bases bilaterally, a ssociated with what was then thought to be a basal ganglia infarct on the left side with residual rig ht-sided weakness. Had presented with mass effect initially at [facility] and then later on admi tted to [facility]. Subsequent scans that were done of the brain showed that there was i mprovement that was more consistent with an infarct rather than a mass per se. Cavitating lesions we re initially treated empirically as infectious with several weeks of antibiotic therapy. The patient 's steroids and Keppra with tapered and DC'd and patient had come to see us as an outpatient for cecilia edge and we have scheduled him for a PET scan followed by planned biopsy of one of these lesions to r ule out infectious versus malignant origin but the patient in the interim got readmitted to the [facility] with collapse and fall at home, hurt his this back along with weakness and again new onset of dys arthria, which appears to be improving along with facial droop, which appears to be improving after c oming into the hospital. The patient has been restarted back on Keppra and Decadron and he just unde rwent a CT-guided biopsy of the lung early this morning. PAST MEDICAL HISTORY: Significant for hepatitis C, which was discovered recently also, has not been treated, non-insulin dependent insulin diabetes mellitus, which got worse with the steroids, dyslipid emia, hypertension, marked obesity and bilateral cavitary lesions, which was discovered recently. SOCIAL HISTORY: Definitely positive for the fact that he is a heavy smoker and has a [id number] hi story of smoking, history of ethanol abuse until recently. Subjectively, the patient after the procedure is complaining of significant amount of pain on the sit e where he had the biopsy on the left side for which he got some pain medicines. When I asked him to turn over in the bed to look at the site, he was able to do so. The patient denies any history of n ausea, vomiting, fevers or chills since admission to the hospital. Denies any history of headaches. He describes the pain at the biopsy site to have at least a 10. This combined with the fact that he fell as well. The patient is examined in bed. He still has scanty cough. OBJECTIVE: VITAL SIGNS: Stable. The patient's is by the bedside. Pulse is 59, respirations 22 and blood pressure 134/75. HEENT: Head is normocephalic, atraumatic. Examination of the oropharynx reveals no oropharyngeal le sions. NECK: Supple. There is no adenopathy. No jugular venous distention. LUNGS: Reveals them to be relatively clear with decreased breath sounds at the bases. No rhonchi or rales are heard. HEART: Reveals S1 and S2 to be normal. No gallop is heard. ABDOMEN: Soft, obese, nontender and no masses per se are felt. EXTREMITIES: Reveals no cyanosis, clubbing or edema. NEUROLOGIC: The patient is awake, alert and oriented with mild right-sided weakness, but is able to communicate and has no significant findings other than the weakness. LABORATORY DATA: From today shows a white count of 7.5, hemoglobin 10.3, hematocrit 31 and platelet count 219,000. Sodium is 141, K is 3.8, chloride is 103, CO2 is 29, BUN is 10, creatinine 0.6 and bl ood sugar is 108. I reviewed the CT of the head and CT of the chest that he had done today. CT of the head was done on the day of admission. CT of his chest is significant for the fact that the patient has bilateral ca vitary masses in the lower lobes, the one in the left lower lobe is 1.7 cm that was biopsied. The one of the right lower lobe is 2 cm adjacent to the diaphragm. In the CAT scan of the chest there is al so a filling defect with thrombus consistent with thrombus in the left upper lobe pulmonary artery br anch which is of concern to me. CAT scan of the head revealed a mass-like lesion in the left basal g anglia with vasogenic edema, unclear whether this is a tumor that is present, was not so prominent wh ile the patient was on steroids, now has become more apparent and there is also mass effect on the le ft lateral ventricle with some midline shift for about 6 mm, most consistent with increasing edema an d most likely related to probably metastatic cancer, unlikely to be of infectious origin at this time . ASSESSMENT NOTES AND PLAN: A detailed discussion with the patient and I spoke with his . Will wa it for the biopsies. I have spoken to the pathologist upon receiving of the specimen that has been se nt for not only histologic diagnosis, but for cultures as well, including special stains for AFB and fungi. Our first differential diagnosis however is lung cancer metastatic to the brain, the backgrou nd history of having hepatitis C, hypertension, morbid obesity, lqr-ybprljb-eeojnroef diabetes, decon ditioning and difficulty in walking and failure to thrive. One of the rare but possible differential diagnosis in the background history of having discovered to have hepatitis C would be central nervou s system and lung lymphoma as well, which can present and is not unusual, but not that common as well . In view of the fact that we do see a filling defect, I put a call in to vascular, Dr. Ryan Moffett to talk to him what his opinion would be. The patient has had a Doppler study results of the lower e xtremities, which are not yet available. Despite the fact that if it is even positive, we have a cat ch 22 situation because the patient has a lesion in the brain which is hemorrhagic or at least there was hemorrhage in the lesion prior to it in the prior MRIs and which is of concern to me at this poin t that if we give blood thinners it could be cause it to progressively worsen. On the other hand, on ce we have a histologic diagnosis and we know it is a malignancy, then we can radiate the brain. Onc e the brain is radiated, it may be safer to start a blood thinner. The standard of care for patients with metastatic cancer at this time is still low molecular weight heparin rather than factor X inhib itors though on individualized basis, we could choose a drug such as Pradaxa or Eliquis. I will disc uss in detail my findings with Dr. Soler as well. In the meantime, will be cautious. I requested her to get a pulmonary consultation on board as well. Will recommend sequential compression stocking s if the DVT study for the lower extremity is negative. The lesions could also cause pelvic vein thr ombosis that could be a source of the clot, so the important issue here is as long as he does not det eriorate respiratory rodriguez, it may be rodriguez to just do an expectant wait and watch approach. Labs for a.m. have been requested. The patient will be monitored very carefully on the telemetry unit for now . Carolyn Parmar MD cc: [id number] TT: 02/20/2017 23:34:21 Confirmation # [id number] Dictation # [id number] sn
[2017-02-21] MEDS: Albuterol-Ipratrop 3 mg / 0.5 (3 ml) UD IH SCH ×5 (01:43→23:25)
[2017-02-21 07:28] LABS: ADD MANUAL DIFF? NO
[2017-02-21 07:31] LABS: BASO # 0.01 K/mm3 (0.0-2.0); BASO % 0.1 % (0.0-3.0); GRAN # 4.73 (1.4-6.5); GRAN % 69.4 % (50.0-68.0); HEMATOCRIT 30.5 % (42.0-52.0); LYMPH # 1.5 (1.2-3.4); LYMPH % 21.3 % (22.0-35.0); MEAN CELL VOLUME 95.9 fL (80.0-105.0); MEAN CORPUSCULAR HEMOGLOBIN 30.8 pg (25.0-35.0); MEAN CORPUSCULAR HGB CONC 32.1 g/dl (31.0-37.0); MEAN PLATELET VOLUME 9.8 fl (7.0-11.0); MONO # 0.6 (0.1-0.6); MONO % 9.2 % (1.0-6.0); PLATELET COUNT 191 10^3/uL (120.0-450.0); RED CELL DISTRIBUTION WIDTH 16.2 % (11.5-14.5); WHITE BLOOD COUNT 6.8 10^3/ul (4.5-11.0)
[2017-02-21 07:41] LABS: ALKALINE PHOSPHATASE 48 U/L (38-133); ALT/SGPT 40 U/L (7-56); AST/SGOT 32 U/L (15-59); BILIRUBIN,TOTAL 0.7 mg/dL (0.2-1.3); BLOOD UREA NITROGEN 10 mg/dL (7-21); CALCIUM 9.2 mg/dL (8.4-10.5); CARBON DIOXIDE 31 mmol/L (21-33); CHLORIDE 103 mmol/L (98-107); GFR AFRICAN-AMERICAN > 60; GLUCOSE,RANDOM 84 mg/dL (70-110); POTASSIUM 3.8 mmol/L (3.6-5.0); SODIUM 141 mmol/L (132-148); TOTAL PROTEIN 6.8 g/dL (5.8-8.3)
[2017-02-21] MEDS: Insulin Reg-HIGH-Coverage SC SCH ×4 (09:05→21:43)
[2017-02-21] MEDS: Potassium Chloride 10 mEq ER Tab PO SCH (09:12)
[2017-02-21] MEDS: Dexamethasone 4 mg/1 ml IVP SCH ×2 (09:13→18:29)
[2017-02-21] MEDS: Pantoprazole 40 mg EC Tab PO SCH (09:13)
[2017-02-21] MEDS: levETIRAcetam 500mg IVPB 100 ML IV SCH ×2 (09:14→21:27)
--- NOTE | 2017-02-21 12:00 | PN ---
DATE: 02/21/2017 SUBJECTIVE: The patient is a 71-year-old, seen and examined, lying in bed, complained of left should er pain. Otherwise, there is no significant weakness. 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 Bilateral lo wer extremity motor and strength is equal, not in any distress. Scanty cough here and there. PHYSICAL EXAMINATION: VITAL SIGNS: He is afebrile, pulse 60, respirations 16, blood pressure 150/82. LUNGS: Bilateral fair airflow. There are no expiratory rhonchi. HEART: S1, S2 audible. ABDOMEN: Soft, nontender, no rebound, no guarding. NEUROLOGIC: He is awake and alert, able to communicate. LABORATORY EXAMINATION: WBC 6.8, hemoglobin 9.8, hematocrit 30.5, platelet of 191. Chemistry: Sodi um 141, potassium 3.8, chloride 103, CO2 31, BUN 10, creatinine 0.6, blood sugar of 84. Urinalysis i s unremarkable. His fungal culture preliminary, no fungal elements seen and cultures are pending. B ilateral leg Doppler: Negative for DVT. However, his CT scan of the chest that was done yesterday s hows bilateral cavitary masses in lower lobes, 1.7 cm left lower lobe and 2 cm right lower lobe adjac ent to the diaphragm. There is filling defect consistent with thrombus involving the left upper lobe pulmonary artery. ASSESSMENT: 1. Bilateral cavitary lung masses, probably malignancy, status post CT-guided biopsy. 2. Left upper lobe pulmonary artery thrombus. 3. Chronic obstructive pulmonary disease. 4. History of smoking up until his recent hospitalization that is 2 months ago. 5. Significant increase in size of left basal ganglia mass with surrounding vasogenic edema. PLAN: At this point, basal ganglia mass seems to be mets. Most probably, this is lung malignancy un til proven otherwise. He is high risk for intracranial bleed if we anticoagulate him. He was given 1 dose of heparin. I will discuss with other network security consultant if we need to continue. However, I will sta rt him on SCDs to prevent DVT and we will continue him on steroid to reduce brain mass edema and cont inue him on nebulizer treatment. I spoke to Dr. Dustin Perdue who is the dry yard worker. In his opinion , we should hold off any anticoagulation for now. We will discuss with Dr. Parmar also and make fur ther plan. We will continue to monitor blood sugar. He should be out of bed to chair. Encourage ph ysical therapy. Turner Soler MD cc: [id number] TT: 02/21/2017 11:59:47 Confirmation # [id number] Dictation # [id number] tn
--- NOTE | 2017-02-21 12:12 | CON ---
DATE: 02/21/2017 We were asked by Dr. Soler, cyanide pot hardener, to evaluate and treat this 71-year-old man who was admitted to [facility] after a fall at home. HISTORY OF PRESENT ILLNESS: The patient fell and collapsed at home. He was seen in the Emergency Ro om, treated with anti-seizure medication for known brain lesions thought to be metastatic disease. H is dysarthria and weakness improved while in the hospital. Currently, he is also on Decadron and rhianna ng worked up for pulmonary lesions as well as brain lesions. PAST MEDICAL HISTORY: Positive for hepatitis C which has not been treated yet, noninsulin dependent diabetes mellitus, hypertension, obesity and recently discovered bilateral cavitary masses in lower l obes about 1.5-2 cm in size. The patient underwent a CT-guided biopsy of a lesion and we are awaitin g the cytology report. SOCIAL HISTORY: Heavy smoker, more than [id number]-kjwo-jpon history, nondrug abuser, occasional ethanol. FAMILY HISTORY: Negative for inherited diseases. REVIEW OF SYSTEMS: Conducted by reviewing all sources. CONSTITUTIONAL: Denies fever. Admits to fatigue and recent fall. EAR, NOSE, AND THROAT: Negative. There was some facial droop on admission. NECK: No complaints. RESPIRATORY: Denies shortness of breath. CARDIOVASCULAR: Denies chest pain. GASTROINTESTINAL: No history of nausea, vomiting or diarrhea. The rest of the systems were reviewed and found to be negative. PHYSICAL EXAMINATION: GENERAL: He is awake, alert, in no acute distress. HEAD, EARS, NOSE, AND THROAT: Within normal limits. NECK: Supple with no jugular vein distention. CHEST: Symmetrical. HEART: S1, S2. No S3. Regular. LUNGS: Diminished breath sounds at both lung bases with scattered rhonchi and expiratory wheezes. GASTROINTESTINAL: Abdomen soft, nontender with no organomegaly. EXTREMITIES: No pedal edema. SKIN: Clear with no skin rashes. NEUROLOGIC: Limited at the present time. LABORATORY DATA: His WBCs are 7.5, hemoglobin 10.3, platelet count 219,000. His CO2 is 29, BUN 10, creatinine 0.6. I reviewed the radiologic data. CT scan of the chest with contrast, not CTA protocol, reveals bilate ral lower lobe cavitary lesions up to 2 cm in size in right lower lobe and 1.7 cm left lower lobe morales t was biopsied. There is no pneumothorax post biopsy. There is a questionable filling defect in upp er lobe branch of the left pulmonary artery. The rest of the pulmonary vasculature is clear. ASSESSMENT AND PLAN: 1. Bilateral pulmonary infiltrate which left side was biopsied. The patient was treated in the past with antibiotics. Question of infection was raised; however, this would be extremely rare for mycob acterial disease to present with bilaterally mass-like infiltrates and very small cavities within tho se infiltrates. Malignancy is more likely. Fungal infection is also not likely. We will await cyto logy. 2. As far as filling defects in one branch of pulmonary artery, pulmonary embolism is possible, but not likely with this type of radiologic presentation, even in hypercoagulable patient. In addition t o that, given the presence of symptomatic brain lesions, anticoagulation in my opinion is contraindic ated. I discussed same with Dr. Soler. Also read consultation with Dr. Parmar. I will review wi th the lower extremity study for additional clues whether the patient is developing any thrombi and a ctually he had the lower extremity study with no sonographic evidence for deep vein thrombosis. Comp ression stockings or sequential compression devices will be recommended at this point. Dustin Perdue MD cc: [id number] TT: 02/21/2017 12:11:38 Confirmation # [id number] Dictation # [id number] tn
--- NOTE | 2017-02-21 17:52 | CP.PCM.PN ---
Subjective - Date & Time of Evaluation Date of Evaluation: 02/21/17 Time of Evaluation: 14:00 - Subjective Subjective: Has some non-productive coughing and some left sided should pain that has persistent since a previous fall prior to coming to hospital ROS: 12 ROS otherwise negative Objective - Vital Signs/Intake and Output Vital Signs (last 24 hours): Temp Pulse Resp BP Pulse Ox 98.1 F 72 19 133/72 95 02/21/17 12:00 02/21/17 14:00 02/21/17 12:00 02/21/17 12:00 02/21/17 06:00 Intake and Output: 02/21/17 02/21/17 06:59 18:59 Intake Total 970 Output Total 850 Balance 120 - Medications Medications: Current Medications Acetaminophen (Tylenol 325mg Tab) 650 mg PO Q4 PRN PRN Reason: Pain, Mild (1-3) Last Admin: 02/20/17 12:54 Dose: 650 mg Albuterol/Ipratropium (Duoneb 3 Mg/0.5 Mg (3 Ml) Ud) 3 ml IH Q6H [facility] Last Admin: 02/21/17 13:37 Dose: 3 ml Aspirin (Ecotrin) 81 mg PO DAILY [facility] Last Admin: 02/21/17 09:13 Dose: 81 mg Atorvastatin Calcium (Lipitor) 20 mg PO HS [facility] Last Admin: 02/20/17 22:04 Dose: 20 mg Dexamethasone (Decadron Inj) 4 mg IVP BID [facility] Docusate Sodium (Colace) 200 mg PO HS [facility] Last Admin: 02/20/17 22:24 Dose: Not Given Enoxaparin Sodium (Lovenox) 40 mg SC DAILY [facility] PRN Reason: Protocol Levetiracetam (Keppra 500mg Ivpb) 100 mls @ 460 mls/hr IV Q12 [facility] Last Admin: 02/21/17 09:14 Dose: 460 mls/hr Insulin Human Regular (Humulin R High) 0 units SC ACHS [facility] PRN Reason: Protocol Last Admin: 02/21/17 11:17 Dose: Not Given Metformin HCl (Glucophage) 500 mg PO BID [facility] Last Admin: 02/21/17 09:07 Dose: Not Given Pantoprazole Sodium (Protonix Ec Tab) 40 mg PO DAILY [facility] Last Admin: 02/21/17 09:13 Dose: 40 mg Potassium Chloride (Klor-Con 10) 10 meq PO DAILY [facility] Last Admin: 02/21/17 09:12 Dose: 10 meq - Labs Labs: 02/21/17 07:15 02/21/17 07:15 PT 11.1 Seconds (9.9-11.8) 02/18/17 17:07 INR 1.03 (0.93-1.08) 02/18/17 17:07 APTT 24.3 Seconds (23.7-30.8) 02/18/17 17:07 - Constitutional Appears: Non-toxic, Cachectic - Respiratory Exam Respiratory Exam: Clear to Ausculation Bilateral, NORMAL BREATHING PATTERN - Cardiovascular Exam Cardiovascular Exam: REGULAR RHYTHM, +S1, +S2. absent: Murmur - GI/Abdominal Exam GI & Abdominal Exam: Distended, Soft, Normal Bowel Sounds. absent: Tenderness - Extremities Exam Extremities Exam: Full ROM, Normal Capillary Refill, Normal Inspection. absent : Joint Swelling, Pedal Edema Assessment and Plan (1) Pulmonary cavitary lesion Status: Acute - Assessment and Plan (Free Text) Assessment: Mr. Macario is a 71 y/o man with a pmhx of HCV, DM, obesity; and an evolving basal ganglia mass causing midline shift w/o evidence of herniation and large b/l cavitary masses in the lower lobes s/p CT guided biopsy (path pending) and CT chest demonstrating a pulmonary artery thrombus per radiology read but pulmonary is not convinced that patient's filling defect reflective necessarily of thrombus. Patient started on lovenox 60mg qd by primary team yesterday and tolerated w/o effect. Discussed again with family risk for anticoagulation in patient with evolving brain mass which can include fatal bleeding. However, a PE could also be fatal potentially though patient asymptomatic from respiratory vantage point. After discussion with patient, , and primary team it was decided to reduce dose of lovenox to ppx dosing of 40mg for now. Customarily treatment dose lovenox would be 100mg BID (based on weight of 233lbs) but the risks for therapuetic anticoagulation at present are prohibitive Clinically patient likely has a lung primary but ddx includes infection. Biopsy will hopefully provide more insight lovenox 40mg qd ppx dosing (reduced from 60mg qd) -await pathology results -NS consulted by neurology -f/u shoulder XR given previous fall prior to hospital stay Kristopher Parmar MD Oncology Service p: [phone]
--- NOTE | 2017-02-21 21:23 | CP.PCM.PN ---
Subjective - Date & Time of Evaluation Date of Evaluation: 02/21/17 Time of Evaluation: 12:20 - Subjective Subjective: Patient is comfortable in bed, not in distress, no fevers overnight. Has intermittent cough. Objective - Vital Signs/Intake and Output Vital Signs (last 24 hours): Temp Pulse Resp BP Pulse Ox 98.3 F 71 20 121/79 98 02/21/17 17:53 02/21/17 18:00 02/21/17 17:53 02/21/17 17:53 02/21/17 17:53 - Medications Medications: Current Medications Acetaminophen (Tylenol 325mg Tab) 650 mg PO Q4 PRN PRN Reason: Pain, Mild (1-3) Last Admin: 02/20/17 12:54 Dose: 650 mg Albuterol/Ipratropium (Duoneb 3 Mg/0.5 Mg (3 Ml) Ud) 3 ml IH Q6H [facility] Last Admin: 02/21/17 19:37 Dose: 3 ml Aspirin (Ecotrin) 81 mg PO DAILY [facility] Last Admin: 02/21/17 09:13 Dose: 81 mg Atorvastatin Calcium (Lipitor) 20 mg PO HS [facility] Last Admin: 02/20/17 22:04 Dose: 20 mg Dexamethasone (Decadron Inj) 4 mg IVP BID [facility] Last Admin: 02/21/17 18:29 Dose: 4 mg Docusate Sodium (Colace) 200 mg PO HS [facility] Last Admin: 02/20/17 22:24 Dose: Not Given Enoxaparin Sodium (Lovenox) 40 mg SC DAILY [facility] PRN Reason: Protocol Levetiracetam (Keppra 500mg Ivpb) 100 mls @ 460 mls/hr IV Q12 [facility] Last Admin: 02/21/17 09:14 Dose: 460 mls/hr Insulin Human Regular (Humulin R High) 0 units SC ACHS [facility] PRN Reason: Protocol Last Admin: 02/21/17 18:27 Dose: Not Given Metformin HCl (Glucophage) 500 mg PO BID [facility] Last Admin: 02/21/17 18:29 Dose: 500 mg Pantoprazole Sodium (Protonix Ec Tab) 40 mg PO DAILY [facility] Last Admin: 02/21/17 09:13 Dose: 40 mg Potassium Chloride (Klor-Con 10) 10 meq PO DAILY [facility] Last Admin: 02/21/17 09:12 Dose: 10 meq - Labs Labs: 02/21/17 07:15 02/21/17 07:15 PT 11.1 Seconds (9.9-11.8) 02/18/17 17:07 INR 1.03 (0.93-1.08) 02/18/17 17:07 APTT 24.3 Seconds (23.7-30.8) 02/18/17 17:07 - Constitutional Appears: Non-toxic, No Acute Distress - Head Exam Head Exam: NORMAL INSPECTION - ENT Exam ENT Exam: Mucous Membranes Moist - Neck Exam Neck Exam: absent: Lymphadenopathy, Meningismus - Respiratory Exam Respiratory Exam: Decreased Breath Sounds - Cardiovascular Exam Cardiovascular Exam: +S1, +S2 - GI/Abdominal Exam GI & Abdominal Exam: Soft. absent: Tenderness Assessment and Plan - Assessment and Plan (Free Text) Plan: Assessment Multiple small cavitary lesions in the lower lobes of both lungs - work up last month did not yield septic emboli or endocarditis - need to rule out malignancy ; unlikely TB (usually TB would have one large apical cavity, would have mediastinal lymph node involvement, has no history of exposure, has no specific symptoms, even thoug the Quantiferon TB test then was indeterminate) - work up from previous month also did not prove Sarcoidosis, fungal infections or Granulomatous polyangiitis (formerly Mark's granulomatosis) - S/P biopsy of cavitary lesion CT-guided POD #1 Subacute left basal ganglia CVA hepatitis C DM history of brain tumor (which apparently resolved without specific treatment) obesity with BMI 32 Plan Patient was previously treated with antibiotics and antifungals but no change in size of cavities - will follow up results of the biopsy Reviewed Heme/Onc evaluation Will continue to monitor clinically off antibiotics
[2017-02-21] MEDS: Enoxaparin 40 mg Syringe SC SCH (21:28)
[2017-02-22] MEDS: Albuterol-Ipratrop 3 mg / 0.5 (3 ml) UD IH SCH ×4 (01:44→19:36)
[2017-02-22] MEDS: Insulin Reg-HIGH-Coverage SC SCH ×4 (07:43→23:22)
--- NOTE | 2017-02-22 08:33 | RAD ---
PROCEDURE: Radiographs of the Left Shoulder HISTORY: PAIN COMPARISON: No prior. FINDINGS: BONES: Normal. No fracture. JOINTS: Normal. Glenohumeral and acromioclavicular joints preserved. No osteoarthritis. SOFT TISSUES: Normal. OTHER FINDINGS: None. IMPRESSION: Normal radiographs of the left shoulder.
[2017-02-22] MEDS: Dexamethasone 4 mg/1 ml IVP SCH ×2 (09:18→17:25)
[2017-02-22] MEDS: levETIRAcetam 500mg IVPB 100 ML IV SCH ×2 (09:19→21:55)
[2017-02-22] MEDS: Pantoprazole 40 mg EC Tab PO SCH (09:20)
[2017-02-22] MEDS: Enoxaparin 40 mg Syringe SC SCH (09:20)
[2017-02-22] MEDS: Potassium Chloride 10 mEq ER Tab PO SCH (09:20)
--- NOTE | 2017-02-22 11:20 | CON ---
DATE: 02/22/2017 This is a 71-year-old gentleman admitted with a change in mental status. He was found to have genera lized weakness. He was seen to have a facial palsy. He was previously admitted in December and was see n on CT scan what was thought to be a left basal ganglia infarct. He also was found to have a cavita ry lesion in his lungs. He was treated with antibiotics and sent to rehabilitation. His maxwell t him back to the Emergency Room approximately 4 days after his discharge from rehabilitation. A rep eat MRI at this point shows that he has an increasing in size mass in the left basal ganglia and a sm aller 12 mm mass in the left insular cortex. PAST MEDICAL HISTORY: Significant for obesity, hypertension, hyperlipidemia, diabetes and a 50-year- pack history of smoking. He just stopped smoking just prior to his last admission. MEDICATIONS: Reviewed from the chart. He underwent a CT-guided lung biopsy 3 days ago. Pathology is pending. PHYSICAL EXAMINATION: NEUROLOGIC: Currently, he is awake, alert. He has some difficulty with speech. He is talking, but does not really answer my questions appropriately. He does talk with coherent sentences. His pupils are equal. His EOMs are full. His face to me is symmetric. I do not see a facial droop. He has n o drift, no weakness. Sensory is intact throughout. At this point, we need to wait for the biopsy from the lung. If that is not diagnostic, then we coul d do a brain biopsy of the lesion in the left insular cortex. However, this would need to be done un tommy neuro navigation, which is not available at this hospital. If it came down to that, we could pos sibly make some arrangements to transfer him to an institution that has this capability. This biopsy cannot be done free-handed. If you have any questions, please do not hesitate to contact me. Adair Villafana MD cc: [id number] TT: 02/22/2017 11:19:56 Confirmation # [id number] Dictation # [id number]
--- NOTE | 2017-02-22 12:03 | PN ---
DATE: 02/22/2017 FOLLOWUP NOTE SUBJECTIVE: He is comfortable in bed in no acute distress, complaining of left shoulder pain. He has cough with mucoid expectorant. He has weakness in both lower extremities. Appetite has improved. He has a mass in the left basal ganglia and bilateral lung lesions, likely lung cancer. CT-guided biopsy was done. Pathology: Pending. REVIEW OF SYSTEMS: As per HPI. The rest of 12-point review of systems reviewed and negative. PHYSICAL EXAMINATION: GENERAL: Comfortable in bed, no acute distress. VITAL SIGNS: Afebrile. Heart rate is 80 per minute, respiratory rate 15 per minute, blood pressure 130/80. HEENT: Normal. CHEST: Air entry present, equal bilaterally. No rhonchi. Bilateral basal crepitations present. CARDIOVASCULAR: S1, S2 normal. No murmur, no gallop. ABDOMEN: Soft, nontender. No hepatosplenomegaly. EXTREMITIES: No edema. NEUROLOGIC: Awake, alert, able to communicate. Lower extremity weakness present. SKIN: No petechia, no rash. LYMPHADENOPATHY: None. LABORATORY DATA: White count 6.8, hemoglobin 9.8, hematocrit 30.5, platelet count 191. Sodium 141, potassium 3.8, creatinine 0.6, calcium 9.2, total bilirubin 0.7, AST 32, ALT 40. MEDICATIONS: Tylenol 650 q. 4 hours p.r.n., DuoNeb q. 6 hours p.r.n., Lipitor 20 mg daily, Decadron 4 mg IV b.i.d., Colace 200 mg at bedtime, Lovenox 40 mg subQ daily, Keppra, Protonix, and Klor-Con. ASSESSMENT: 1. Bilateral cavitary lung masses. 2. Basal ganglia mass, left-sided. 3. Chronic obstructive pulmonary disease. 4. Anemia. PLAN: Lung biopsy is done. Results are pending. Neurosurgical consultation with Dr. Villafana reviewed and appreciated. Continue the bronchodilators. He is on IV steroids 4 mg, Decadron b.i.d. We will continue that. DVT prophylaxis by 40 mg Lovenox. Continue that. Continue Keppra for seizure prophylaxis. He is on metformin 500 mg twice a day. Glucoses are fairly controlled. We will continue Protonix and potassium chloride. Hemoglobin and hematocrit stable at 9.8 and , and does not need blood transfusion today. Renal: BUN, creatinine normal. Electrolytes normal. Jing Swartz MD cc: [id number] TT: 02/22/2017 12:01:50 Confirmation # [id number] Dictation # [id number] MTDD
--- NOTE | 2017-02-22 14:34 | PN ---
DATE: 02/22/2017 The patient was seen and examined at bedside. He reports no increase in shortness of breath or cough. He had no hemoptysis. PHYSICAL EXAMINATION: VITAL SIGNS: Temperature 97.1 orally, pulse 66, respirations 19, pulse oximetry 96% on nasal cannula, blood pressure 128/84. HEAD: Normocephalic and atraumatic. NECK: Supple with no jugular vein distention. CHEST: Symmetrical. HEART: S1, S2. No S3. Irregularly irregular. LUNGS: Few basal rhonchi. No wheezing. GASTROINTESTINAL: Abdomen soft, nontender with no organomegaly. EXTREMITIES: No edema. LABORATORY DATA: Discussed in my yesterday's consultation. There are no new labs. Also, findings of CT scan of chest were discussed at length. There was, in addition to cavitary mass in lower lobe left-sided, which was biopsied, there is a questionable filling defect in the upper branch of pulmonary artery. However, clinically, patient does not have a pulmonary embolism and his leg studies were negative. I would continue with prophylactic dose of Lovenox. The patient has many contraindications to therapeutic anticoagulation and no compelling case for that. FINAL ASSESSMENT: 1. Lung mass. 2. Rule out malignancy. 3. Brain metastasis. 4. Chronic obstructive pulmonary disease. 5. Abnormal CT scan of chest. Dustin Perdue MD cc: [id number] TT: 02/22/2017 14:34:10 Confirmation # [id number] Dictation # [id number] en MTDD
--- NOTE | 2017-02-22 16:00 | CP.PCM.PN ---
Subjective - Date & Time of Evaluation Date of Evaluation: 02/22/17 Time of Evaluation: 15:00 - Subjective Subjective: Continues with non-productive cough and left shoulder pain. Otherwise no changes ROS: 12 point ROS otherwise negative Objective - Vital Signs/Intake and Output Vital Signs (last 24 hours): Temp Pulse Resp BP Pulse Ox 97.1 F L 66 19 128/84 95 02/22/17 12:00 02/22/17 12:00 02/22/17 12:00 02/22/17 12:00 02/22/17 05:46 Intake and Output: 02/22/17 02/22/17 06:59 18:59 Intake Total 360 200 Output Total 850 Balance -490 200 - Medications Medications: Current Medications Acetaminophen (Tylenol 325mg Tab) 650 mg PO Q4 PRN PRN Reason: Pain, Mild (1-3) Last Admin: 02/20/17 12:54 Dose: 650 mg Albuterol/Ipratropium (Duoneb 3 Mg/0.5 Mg (3 Ml) Ud) 3 ml IH Q6H [facility] Last Admin: 02/22/17 14:14 Dose: 3 ml Aspirin (Ecotrin) 81 mg PO DAILY [facility] Last Admin: 02/22/17 09:18 Dose: 81 mg Atorvastatin Calcium (Lipitor) 20 mg PO HS [facility] Last Admin: 02/21/17 21:26 Dose: 20 mg Dexamethasone (Decadron Inj) 4 mg IVP BID [facility] Last Admin: 02/22/17 09:18 Dose: 4 mg Docusate Sodium (Colace) 200 mg PO HS [facility] Last Admin: 02/21/17 21:27 Dose: Not Given Enoxaparin Sodium (Lovenox) 40 mg SC DAILY [facility] PRN Reason: Protocol Last Admin: 02/22/17 09:20 Dose: 40 mg Levetiracetam (Keppra 500mg Ivpb) 100 mls @ 460 mls/hr IV Q12 [facility] Last Admin: 02/22/17 09:19 Dose: 460 mls/hr Insulin Human Regular (Humulin R High) 0 units SC ACHS [facility] PRN Reason: Protocol Last Admin: 02/22/17 11:58 Dose: Not Given Metformin HCl (Glucophage) 500 mg PO BID [facility] Last Admin: 02/22/17 09:18 Dose: 500 mg Pantoprazole Sodium (Protonix Ec Tab) 40 mg PO DAILY [facility] Last Admin: 02/22/17 09:20 Dose: 40 mg Potassium Chloride (Klor-Con 10) 10 meq PO DAILY [facility] Last Admin: 02/22/17 09:20 Dose: 10 meq - Labs Labs: 02/21/17 07:15 02/21/17 07:15 PT 11.1 Seconds (9.9-11.8) 02/18/17 17:07 INR 1.03 (0.93-1.08) 02/18/17 17:07 APTT 24.3 Seconds (23.7-30.8) 02/18/17 17:07 - Constitutional Appears: Well - Respiratory Exam Respiratory Exam: absent: Accessory Muscle Use, Wheezes, Respiratory Distress - Cardiovascular Exam Cardiovascular Exam: REGULAR RHYTHM, +S1, +S2. absent: Murmur - GI/Abdominal Exam GI & Abdominal Exam: Soft, Normal Bowel Sounds. absent: Tenderness - Extremities Exam Extremities Exam: Full ROM, Normal Capillary Refill, Normal Inspection. absent : Joint Swelling, Pedal Edema Assessment and Plan (1) Pulmonary cavitary lesion Status: Acute - Assessment and Plan (Free Text) Assessment: Mr. Macario is a 71 y/o man with a pmhx of HCV, DM, obesity; and an evolving basal ganglia mass causing midline shift w/o evidence of herniation and large b/l cavitary masses in the lower lobes s/p CT guided biopsy (path pending) and CT chest demonstrating a pulmonary artery thrombus per radiology read but pulmonary is not convinced that patient's filling defect reflective necessarily of thrombus. Patient tolerating lovenox 40mg qd w/o any issue. Clinically patient likely has a lung primary but ddx includes infection. Biopsy will hopefully provide more insight -continue lovnoex 40mg qd -await pathology results -NS consulted by neurology -f/u shoulder XR given previous fall prior to hospital stay Kristopher Parmar MD Oncology Service p: [phone]
[2017-02-23] MEDS: Albuterol-Ipratrop 3 mg / 0.5 (3 ml) UD IH SCH ×5 (01:28→23:42)
--- NOTE | 2017-02-23 07:33 | PN ---
DATE: 02/23/2017 SUBJECTIVE: The patient appears comfortable at rest. He is not short of breath. PHYSICAL EXAMINATION: VITAL SIGNS: Temperature is 97.6, pulse 58, respirations 18, blood pressure 134 /84. Oxygen saturation on nasal cannula is 96%. HEENT: Normocephalic, atraumatic. No JVD. CARDIOVASCULAR: Positive S1, S2. No S3. LUNGS: Decreased breath sounds at the bases. Minimal rhonchi. No wheezing. EXTREMITIES: Mild edema. No cyanosis, no clubbing. Calves are nontender to palpation. GASTROINTESTINAL: Abdomen is soft, nontender, nondistended. Bowel sounds are positive. SKIN: No acute rash. NEUROLOGIC: Limited at the present time. IMPRESSION: 1. Bilateral lung nodules -- cavitary. 2. Rule out malignancy. 3. Rule out brain metastasis--=multiple brain masses. 4. Chronic obstructive pulmonary disease. PLAN: The patient appears comfortable this morning. He is not short of breath at rest. On physical exam, there is no significant bronchospasm noted. In addition, there is no significant alveolar-arterial gradient. I will continue with the current nebulizer treatments for now. The patient remains on intravenous dexamethasone. Input by Dr. Parmar (oncology) is noted. We are still awaiting the results of the CAT scan-guided lung biopsy. I will meet with Dr. Smith (pathology) this morning. I will also discuss the above with the attending physician. Diony Contreras MD cc: [phone] TT: 02/23/2017 07:32:47 Confirmation # [id number] Dictation # [id number] en MTDD
[2017-02-23] MEDS: Insulin Reg-HIGH-Coverage SC SCH ×4 (09:07→21:39)
[2017-02-23] MEDS: Potassium Chloride 10 mEq ER Tab PO SCH (10:28)
[2017-02-23] MEDS: Dexamethasone 4 mg/1 ml IVP SCH ×2 (10:30→17:51)
[2017-02-23] MEDS: Pantoprazole 40 mg EC Tab PO SCH (10:30)
[2017-02-23] MEDS: Enoxaparin 40 mg Syringe SC SCH (10:30)
[2017-02-23] MEDS: levETIRAcetam 500mg IVPB 100 ML IV SCH ×2 (10:31→21:34)
--- NOTE | 2017-02-23 12:36 | PN ---
DATE: 02/23/2017 The patient is a 71-year-old white male, seen and examined, lying in bed. He seems to be comfortable . Complained of left shoulder pain. Otherwise, doing well. Scanty cough, generalized weakness. Di d not get physical therapy yet. PHYSICAL EXAMINATION: VITAL SIGNS: He is afebrile, pulse 50, respirations 20, blood pressure 134/84. LUNGS: Bilateral fair airflow, no rhonchi or crackle. HEART: S1, S2 audible. ABDOMEN: Soft, nontender, no rebound, obese, no hepatosplenomegaly. EXTREMITIES: Bilateral legs +1 edema. His leg Doppler is negative for DVT. His CT scan of the chest consistent with bilateral cavitary mas ses in the lower lobes, 1.7 cm on the left and 2 cm on the right adjacent to the diaphragm and left u pper lobe pulmonary artery branch thrombus. ASSESSMENT: 1. Status post fall. 2. Bilateral pulmonary cavitary lesions, status post CT-guided biopsy. 3. Left upper lobe pulmonary artery thrombus. 4. Left basal ganglia mass lesion with significant surrounding vasogenic edema and also there is 12 mm enhancing lesion in the left anterior insula. 5. Morbid obesity. 6. Noninsulin dependent diabetes. 7. Deconditioning and difficulty walking. 8. Chronic obstructive pulmonary disease. 9. Chronic smoker, but recently quit. 10. Chronic anemia. PLAN: The patient is hemodynamically stable. We will discontinue his telemetry. Continue him on IV steroids, continue nebulizer treatment. He is on Keppra. He is on Lipitor, Protonix. Will monitor his blood sugar and encourage physical therapy. TCU evaluation has been requested. Awaiting biopsy report. Should be available either today or tomorrow. Turner Soler MD cc: [phone] TT: 02/23/2017 12:35:41 Confirmation # [id number] Dictation # [id number] en
--- NOTE | 2017-02-23 18:39 | CP.PCM.PN ---
Subjective - Date & Time of Evaluation Date of Evaluation: 02/23/17 Time of Evaluation: 14:10 - Subjective Subjective: Comfortable, afebrile, not in distress. Objective - Vital Signs/Intake and Output Vital Signs (last 24 hours): Temp Pulse Resp BP Pulse Ox 102.7 F H 106 H 22 122/76 100 02/23/17 17:56 02/23/17 17:56 02/23/17 17:56 02/23/17 17:56 02/23/17 06:00 Intake and Output: 02/23/17 02/23/17 06:59 18:59 Intake Total 420 Output Total 900 Balance -480 - Medications Medications: Current Medications Acetaminophen (Tylenol 325mg Tab) 650 mg PO Q4 PRN PRN Reason: Pain, Mild (1-3) Last Admin: 02/23/17 12:47 Dose: 650 mg Albuterol/Ipratropium (Duoneb 3 Mg/0.5 Mg (3 Ml) Ud) 3 ml IH Q6H [facility] Last Admin: 02/23/17 16:15 Dose: 3 ml Aspirin (Ecotrin) 81 mg PO DAILY [facility] Last Admin: 02/23/17 10:28 Dose: 81 mg Atorvastatin Calcium (Lipitor) 20 mg PO HS [facility] Last Admin: 02/22/17 21:55 Dose: 20 mg Dexamethasone (Decadron Inj) 4 mg IVP BID [facility] Last Admin: 02/23/17 17:51 Dose: 4 mg Docusate Sodium (Colace) 200 mg PO HS [facility] Last Admin: 02/22/17 21:55 Dose: 200 mg Enoxaparin Sodium (Lovenox) 40 mg SC DAILY [facility] PRN Reason: Protocol Last Admin: 02/23/17 10:30 Dose: 40 mg Levetiracetam (Keppra 500mg Ivpb) 100 mls @ 460 mls/hr IV Q12 [facility] Last Admin: 02/23/17 10:31 Dose: 460 mls/hr Insulin Human Regular (Humulin R High) 0 units SC ACHS [facility] PRN Reason: Protocol Last Admin: 02/23/17 17:34 Dose: Not Given Metformin HCl (Glucophage) 500 mg PO BID [facility] Last Admin: 02/23/17 17:51 Dose: 500 mg Pantoprazole Sodium (Protonix Ec Tab) 40 mg PO DAILY [facility] Last Admin: 02/23/17 10:30 Dose: 40 mg Potassium Chloride (Klor-Con 10) 10 meq PO DAILY [facility] Last Admin: 02/23/17 10:28 Dose: 10 meq - Labs Labs: 02/21/17 07:15 02/21/17 07:15 PT 11.1 Seconds (9.9-11.8) 02/18/17 17:07 INR 1.03 (0.93-1.08) 02/18/17 17:07 APTT 24.3 Seconds (23.7-30.8) 02/18/17 17:07 - Constitutional Appears: Non-toxic, No Acute Distress - Head Exam Head Exam: NORMAL INSPECTION - ENT Exam ENT Exam: Mucous Membranes Moist - Neck Exam Neck Exam: absent: Lymphadenopathy, Meningismus - Respiratory Exam Respiratory Exam: Decreased Breath Sounds - Cardiovascular Exam Cardiovascular Exam: +S1, +S2 - GI/Abdominal Exam GI & Abdominal Exam: Soft. absent: Tenderness Assessment and Plan - Assessment and Plan (Free Text) Plan: Assessment Multiple small cavitary lesions in the lower lobes of both lungs - work up last month did not yield septic emboli or endocarditis - need to rule out malignancy ; unlikely TB (usually TB would have one large apical cavity, would have mediastinal lymph node involvement, has no history of exposure, has no specific symptoms, even thoug the Quantiferon TB test then was indeterminate) - work up from previous month also did not prove Sarcoidosis, fungal infections or Granulomatous polyangiitis (formerly Mark's granulomatosis) - S/P biopsy of cavitary lesion CT-guided POD #3 Subacute left basal ganglia CVA hepatitis C DM history of brain tumor (which apparently resolved without specific treatment) obesity with BMI 32 Plan Patient was previously treated with antibiotics and antifungals but no change in size of cavities - will follow up results of the biopsy Reviewed Heme/Onc evaluation Will continue to monitor clinically off antibiotics since he is at risk for nosocomial infections
--- NOTE | 2017-02-23 22:57 | PN ---
DATE: 02/23/2017 The patient is in room 263, bed 1. SUBJECTIVE: The patient is examined in bed. States that he has been coughing intermittently. When he coughs, he has pain in the scapular area, left shoulder pain, which on a scale of 0-10, sometimes 7, otherwise doing well. Scant cough, generalized weakness. He is able to physical therapy. PHYSICAL EXAMINATION: GENERAL: The patient is examined in bed. He is afebrile, pulse is 50, respirations 20, blood pressu re is 134/84. HEENT: Head is normocephalic, atraumatic. Conjunctivae pale. Sclerae are anicteric. Examination o f the oropharynx reveals no oropharyngeal lesions. NECK: Supple. There is no adenopathy. No jugular venous distention noted. LUNGS: Reveals no adventitious sounds. There is good air flow in both lung garcia. HEART: Reveals S1 and S2 normal. No gallop or murmur is heard. ABDOMEN: Soft, nontender. No rebound, rigidity or guarding is noted. EXTREMITIES: The patient has bilateral lower extremity edema. LABORATORY DATA: Doppler studies of the lower extremities were negative. CAT scan of the chest is m ost consistent bilaterally cavity masses in the lower lobe, 1.7 cm in the left and 2 in the right and left upper pulmonary artery branch thrombus. ASSESSMENT NOTES AND PLAN: Events over the weekend were noted. I spoke to Dr. Ryan Moffett, [facility] radiologist and vascular specialist, also spoke to Dr. Soler. Plan was to give the patient low molecular weight heparin, assess the patient for probably an IVC filter. Continue with SCD stock ings. We are hoping to get the biopsy on the lung that was done by tomorrow afternoon. The patient has a left basal ganglia mass lesion with surrounding significant vasogenic edema, most consistent wi th tumor, morbid obesity, , diabetes mellitus, defunctioning with gait dysfunction with inabilit y to walk around independently, chronic obstructive pulmonary disease, chronic anemia. PLAN: I had told the patient that I would speak to him and his tomorrow morning, review the pat hology when it is available with the pathologist and come up with a treatment plan. Meanwhile, we wi ll continue the current medications the patient is on. I discussed my findings with the PHU[facility] [place] tDr. Newby as well. The patient will continue his current medications, which include Colace, Decad kimberly, DuoNeb, Ecotrin, metformin, Glucophage, insulin coverage, Keppra 500 IV q. 12 hours, potassium c hloride, Lipitor, Lovenox, pantoprazole and Voriconazole, which has been added to the regimen. He is getting Voriconazole IV piggyback q. 12 hours for the outside possibility this could be a fungal inf ection. Routine post exam instructions have been given to the patient. Continue to monitor the bloo d work and the CBC very carefully. Today's blood work is not available. We will make sure we reques t for CBC and chemistry for a.m. Carolyn Parmar MD cc: [id number] TT: 02/23/2017 22:56:58 Confirmation # [id number] Dictation # [id number] mn
[2017-02-24] MEDS: Albuterol-Ipratrop 3 mg / 0.5 (3 ml) UD IH SCH ×4 (01:34→19:47)
[2017-02-24 07:47] LABS: ADD MANUAL DIFF? NO
[2017-02-24 07:58] LABS: BASO # 0.01 K/mm3 (0.0-2.0); BASO % 0.1 % (0.0-3.0); EOS % 0.1 % (1.5-5.0); GRAN # 6.06 (1.4-6.5); GRAN % 75.3 % (50.0-68.0); HEMATOCRIT 33.8 % (42.0-52.0); LYMPH # 1.4 (1.2-3.4); LYMPH % 16.8 % (22.0-35.0); MEAN CORPUSCULAR HEMOGLOBIN 31.3 pg (25.0-35.0); MEAN CORPUSCULAR HGB CONC 32.5 g/dl (31.0-37.0); MEAN PLATELET VOLUME 10.1 fl (7.0-11.0); MONO # 0.6 (0.1-0.6); MONO % 7.7 % (1.0-6.0); PLATELET COUNT 231 10^3/uL (120.0-450.0); RED CELL DISTRIBUTION WIDTH 15.6 % (11.5-14.5); WHITE BLOOD COUNT 8.1 10^3/ul (4.5-11.0)
[2017-02-24] MEDS: Insulin Reg-HIGH-Coverage SC SCH ×4 (08:18→22:33)
[2017-02-24 08:26] LABS: ALB/GLOB RATIO 1.2 (1.1-1.8); ALKALINE PHOSPHATASE 54 U/L (38-133); ALT/SGPT 39 U/L (7-56); AST/SGOT 33 U/L (15-59); BILIRUBIN,TOTAL 0.7 mg/dL (0.2-1.3); BLOOD UREA NITROGEN 15 mg/dL (7-21); CALCIUM 9.3 mg/dL (8.4-10.5); CARBON DIOXIDE 28 mmol/L (21-33); CHLORIDE 100 mmol/L (95-110); GFR AFRICAN-AMERICAN > 60; GLUCOSE,RANDOM 74 mg/dL (70-110); SODIUM 140 mmol/L (132-148); TOTAL PROTEIN 6.8 g/dL (5.8-8.3)
[2017-02-24] MEDS: Dexamethasone 4 mg/1 ml IVP SCH (09:13)
[2017-02-24] MEDS: levETIRAcetam 500mg IVPB 100 ML IV SCH ×2 (09:14→22:12)
[2017-02-24] MEDS: Pantoprazole 40 mg EC Tab PO SCH (09:15)
[2017-02-24] MEDS: Enoxaparin 40 mg Syringe SC SCH (09:15)
[2017-02-24] MEDS: Potassium Chloride 10 mEq ER Tab PO SCH (09:15)
--- NOTE | 2017-02-24 09:25 | PN ---
DATE: 02/24/2017 SUBJECTIVE: The patient appears very comfortable at rest. He is not short of breath. PHYSICAL EXAMINATION: VITAL SIGNS: Temperature is 98.6, pulse 68, respirations 17, blood pressure 127 /79. Oxygen saturation on nasal cannula is 98%. HEENT: Normocephalic, atraumatic. No JVD. CARDIOVASCULAR: Positive S1, S2. No S3. LUNGS: Decreased breath sounds at the bases. Very minimal/less rhonchi. No wheezing. EXTREMITIES: Mild edema. No cyanosis, no clubbing. Calves are nontender to palpation. GASTROINTESTINAL: Abdomen is soft, nontender, nondistended. Bowel sounds are positive. SKIN: No acute rash. NEUROLOGIC: Limited at the present time. IMPRESSION: 1. Bilateral lung nodules - cavitary. 2. Rule out malignancy. 3. Rule out brain metastasis - multiple brain masses. 4. Chronic obstructive pulmonary disease. PLAN: The patient appears very comfortable this morning. He is not short of breath at rest. On physical exam, his bronchospasm continues to resolve. In addition, there is no significant alveolar arterial gradient. I will continue with the current nebulizer treatments for now. The patient also remains on intravenous dexamethasone. I did discuss the case with Dr. Smith (pathology ) at length yesterday. Hopefully, we will have the biopsy results later this morning. Clinical status of the patient has certainly improved - while in the hospital. However, the overall status/prognosis of this patient remains very guarded at best. I will discuss the above with the attending physician. Diony Contreras MD cc: [phone] TT: 02/24/2017 09:24:58 Confirmation # [id number] Dictation # [id number] stu NEIL
--- NOTE | 2017-02-24 19:09 | PN ---
DATE: 02/24/2017 SUBJECTIVE: The patient is a 71-year-old, seen and examined, awake, alert, oriented, communicative, not in any distress. Had a temperature of 102.7 yesterday. PHYSICAL EXAMINATION: VITAL SIGNS: Today he is afebrile, pulse 71, respirations 20, blood pressure 151/94. LUNGS: Bilateral soft crackle occasionally in the mid lung region posteriorly. HEART: S1, S2 audible. ABDOMEN: Soft, nontender, no rebound, no guarding. NEUROLOGIC: He is awake and alert, communicative. LABORATORY EXAMINATION: WBC is 8.1, hemoglobin 11, hematocrit 33.8, platelet of 231. Chemistry: So dium 140, potassium 4.0, chloride 100, CO2 of 28, BUN 15, creatinine 0.5, blood sugar of 75. His blo od cultures and urine cultures are negative. 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 ASSESSMENT: 1. 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 2. Heavy smoker. 3. Chronic obstructive pulmonary disease. 4. Hypertension. 5. Steroid-induced hyperglycemia. PLAN: I discussed with Dr. Parmar at length. Will taper down his steroid. He has been started on voriconazole 200 mg q. 12. We will continue him on Protonix. He is on Lovenox. He is on atorvastat in. Continue him on antiepileptic prophylactically for now. He is on DVT prophylaxis. He will cont inue on aspirin, nebulizer treatment. The main question is if the bilateral cavitary lesion is relat ed to Aspergillus or it is malignant. Had a long discussion with Dr. Parmar and patient's family. Will treat his brain lesion empirically as aspergillosis. In the meantime, we will get a RICHARD to rule out any valve vegetation. Dr. Palafox has been consulted. Will continue to monitor blood sugar and bl ood pressure. I will request Dr. Ryan Moffett for PICC line placement and then will make a discharge plan to complete his course of 6-8 weeks of antifungal medication. Turner Soler MD cc: [phone] TT: 02/24/2017 19:08:44 Confirmation # [id number] Dictation # [id number] rn
--- NOTE | 2017-02-24 20:37 | CP.PCM.PN ---
Subjective - Date & Time of Evaluation Date of Evaluation: 02/24/17 Time of Evaluation: 12:20 - Subjective Subjective: Comfortable in bed, not in distress, no fevers overnight. Objective - Vital Signs/Intake and Output Vital Signs (last 24 hours): Temp Pulse Resp BP Pulse Ox 97.8 F 71 20 151/94 H 97 02/24/17 06:00 02/24/17 06:00 02/24/17 06:00 02/24/17 06:00 02/24/17 06:00 Intake and Output: 02/24/17 02/25/17 18:59 06:59 Intake Total 840 Balance 840 - Medications Medications: Current Medications Acetaminophen (Tylenol 325mg Tab) 650 mg PO Q4 PRN PRN Reason: Pain, Mild (1-3) Last Admin: 02/23/17 12:47 Dose: 650 mg Albuterol/Ipratropium (Duoneb 3 Mg/0.5 Mg (3 Ml) Ud) 3 ml IH Q6H [facility] Last Admin: 02/24/17 19:47 Dose: 3 ml Aspirin (Ecotrin) 81 mg PO DAILY [facility] Last Admin: 02/24/17 09:14 Dose: 81 mg Atorvastatin Calcium (Lipitor) 20 mg PO HS [facility] Last Admin: 02/23/17 21:34 Dose: 20 mg Docusate Sodium (Colace) 200 mg PO HS [facility] Last Admin: 02/23/17 21:33 Dose: 200 mg Enoxaparin Sodium (Lovenox) 40 mg SC DAILY [facility] PRN Reason: Protocol Last Admin: 02/24/17 09:15 Dose: 40 mg Levetiracetam (Keppra 500mg Ivpb) 100 mls @ 460 mls/hr IV Q12 [facility] Last Admin: 02/24/17 09:14 Dose: 460 mls/hr Voriconazole 200 mg/ Sodium (Chloride) 100 mls @ 50 mls/hr IVPB Q12 [facility] PRN Reason: Protocol Stop: 03/02/17 22:01 Last Admin: 02/24/17 10:07 Dose: 50 mls/hr Insulin Human Regular (Humulin R High) 0 units SC ACHS [facility] PRN Reason: Protocol Last Admin: 02/24/17 17:07 Dose: Not Given Metformin HCl (Glucophage) 500 mg PO BID [facility] Last Admin: 02/24/17 17:07 Dose: 500 mg Pantoprazole Sodium (Protonix Ec Tab) 40 mg PO DAILY [facility] Last Admin: 02/24/17 09:15 Dose: 40 mg Potassium Chloride (Klor-Con 10) 10 meq PO DAILY [facility] Last Admin: 02/24/17 09:15 Dose: 10 meq - Labs Labs: 02/24/17 07:00 02/24/17 07:00 PT 11.1 Seconds (9.9-11.8) 02/18/17 17:07 INR 1.03 (0.93-1.08) 02/18/17 17:07 APTT 24.3 Seconds (23.7-30.8) 02/18/17 17:07 - Constitutional Appears: Non-toxic, No Acute Distress - ENT Exam ENT Exam: Mucous Membranes Moist - Neck Exam Neck Exam: absent: Lymphadenopathy, Meningismus - Respiratory Exam Respiratory Exam: Decreased Breath Sounds - Cardiovascular Exam Cardiovascular Exam: +S1, +S2 - GI/Abdominal Exam GI & Abdominal Exam: Soft. absent: Tenderness Assessment and Plan - Assessment and Plan (Free Text) Plan: Assessment Multiple small cavitary lesions in the lower lobes of both lungs - Aspergillosis noted on pathology of biopsy sample Subacute left basal ganglia CVA hepatitis C DM history of brain tumor (which apparently resolved without specific treatment) obesity with BMI 32 Plan started patient on Voriconazole - the patient should be treated for 2-3 months with weekly CBC, CMP Discussed with Dr. Soler and Dr. Contreras Patient will be undergoing a RICHARD and will follow up results Will monitor clinically Explained to patient and that he may develop visual disturbances and they should immediately tell PMD if these occur while the patient is on Voriconazole
[2017-02-25] MEDS: Albuterol-Ipratrop 3 mg / 0.5 (3 ml) UD IH SCH ×4 (01:53→19:57)
[2017-02-25 07:42] LABS: ADD MANUAL DIFF? NO
[2017-02-25 07:45] LABS: BASO # 0.01 K/mm3 (0.0-2.0); BASO % 0.1 % (0.0-3.0); EOS % 0.3 % (1.5-5.0); GRAN # 7.67 (1.4-6.5); GRAN % 80.4 % (50.0-68.0); LYMPH # 1.1 (1.2-3.4); LYMPH % 11.5 % (22.0-35.0); MEAN CELL VOLUME 95.4 fL (80.0-105.0); MEAN CORPUSCULAR HEMOGLOBIN 30.9 pg (25.0-35.0); MEAN CORPUSCULAR HGB CONC 32.4 g/dl (31.0-37.0); MEAN PLATELET VOLUME 9.7 fl (7.0-11.0); MONO # 0.7 (0.1-0.6); MONO % 7.7 % (1.0-6.0); PLATELET COUNT 202 10^3/uL (120.0-450.0); RED CELL DISTRIBUTION WIDTH 15.6 % (11.5-14.5); WHITE BLOOD COUNT 9.6 10^3/ul (4.5-11.0)
[2017-02-25] MEDS: Insulin Reg-HIGH-Coverage SC SCH ×3 (07:52→16:54)
[2017-02-25 07:55] LABS: ALB/GLOB RATIO 1.2 (1.1-1.8); ALKALINE PHOSPHATASE 61 U/L (38-133); ALT/SGPT 45 U/L (7-56); AST/SGOT 27 U/L (15-59); BILIRUBIN,TOTAL 0.8 mg/dL (0.2-1.3); BLOOD UREA NITROGEN 19 mg/dL (7-21); CALCIUM 9.1 mg/dL (8.4-10.5); CARBON DIOXIDE 30 mmol/L (21-33); CHLORIDE 101 mmol/L (98-107); GFR AFRICAN-AMERICAN > 60; GLUCOSE,RANDOM 79 mg/dL (70-110); POTASSIUM 3.9 mmol/L (3.6-5.0); SODIUM 138 mmol/L (132-148); TOTAL PROTEIN 6.8 g/dL (5.8-8.3)
--- NOTE | 2017-02-25 09:59 | PN ---
DATE: 02/25/2017 SUBJECTIVE: The patient appears very comfortable this morning. He is not short of breath at rest. PHYSICAL EXAMINATION: VITAL SIGNS: Temperature is 98.3, pulse 77, respirations 19, blood pressure 127 /76. Oxygen saturation on nasal cannula is 96-97%. HEENT: Normocephalic, atraumatic. No JVD. CARDIOVASCULAR: Positive S1, S2. No S3. LUNGS: Decreased breath sounds at the bases. Very minimal rhonchi. No wheezing. EXTREMITIES: Mild edema. No cyanosis, no clubbing. Calves are nontender to palpation. GASTROINTESTINAL: Abdomen is soft, nontender, nondistended. Bowel sounds are positive. SKIN: No acute rash. NEUROLOGIC: Limited at the present time. PERTINENT LABORATORY DATA: Lung biopsy pathology: There is benign lung parenchymal tissue showing aggregates of fungal hyphae and spores, morphologically consistent with Aspergillus. IMPRESSION: 1. Bilateral lung nodules - cavitary. Pathology consistent with aspergillosis. 2. Chronic obstructive pulmonary disease. 3. Multiple brain masses. 4. Hypertension. PLAN: The patient appears very comfortable this morning. He is not short of breath at rest. He states he is feeling much better overall. I did meet with Dr. Smith (pathology) at length yesterday - in reference to the biopsy. Dr. Smith is confident that the specimen is consistent with aspergillosis. Voriconazole has been started by infectious disease. I also discussed the case with Dr. Newby at length yesterday. The patient will need repeat CAT scanning - after treatment with voriconazole. I will discuss the timing of the repeat scanning with infectious disease. Clinical status of the patient is improved overall. However, the patient's overall status/prognosis does remain guarded. On physical exam, there is no significant bronchospasm present. In addition, there is no significant alveolar arterial gradient. I will continue with the current nebulizer treatments for now. I will discuss the above with the attending physician. Diony Contreras MD cc: [phone] TT: 02/25/2017 09:58:15 Confirmation # [id number] Dictation # [id number] stu NEIL
[2017-02-25] MEDS: Potassium Chloride 10 mEq ER Tab PO SCH (10:20)
[2017-02-25] MEDS: Enoxaparin 40 mg Syringe SC SCH (10:20)
[2017-02-25] MEDS: Pantoprazole 40 mg EC Tab PO SCH (10:20)
[2017-02-25] MEDS: levETIRAcetam 500mg IVPB 100 ML IV SCH ×3 (10:21→22:37)
[2017-02-25] MEDS ORDERED: Lidocaine 2% Inj (20ml) ONE (12:44)
--- NOTE | 2017-02-25 15:56 | VASCULAR ---
PROCEDURE: Ultrasound and fluoroscopically placed left upper extremity PICC line. HISTORY: Pulmonary fungal lesions. Long-term IV antibiotics. Needs PICC line. PHYSICIAN(S): Ryan Moffett MD. TECHNIQUE: The relative risks and indications of the procedure were explained to the patient and consent obtained. The patient was placed supine on the arteriogram table and the left arm prepped and draped in the usual sterile fashion. A tourniquet was applied to the left axilla. 1% Xylocaine was used to anesthetize the skin and soft tissues at the puncture site above the elbow. The left brachial vein was punctured under direct ultrasound guidance with a micropuncture set. A 0.018 guidewire was advanced centrally and used to measure the length to the SVC/RA junction. A 5 Lebanese single-lumen PICC line 48 cm long was advanced to the SVC/RA junction. The catheter was flushed and secured. The patient tolerated the procedure well. IMPRESSION: 1. Ultrasound and fluoroscopically placed left upper extremity PICC line. A 5 Lebanese single-lumen PICC line 48 cm long was advanced to the SVC/RA junction.
--- NOTE | 2017-02-25 18:32 | PN ---
DATE: 02/25/2017 SUBJECTIVE: The patient is a 71-year-old, seen and examined, lying in bed. Seemed to be comfortable . Minimal cough. No fever, no chills, no nausea, vomiting, no diarrhea. Eating and tolerating. PHYSICAL EXAMINATION: VITAL SIGNS: He is afebrile, pulse 66, respirations 20, blood pressure 129/74. LUNGS: Bilateral fair airflow, no rhonchi or crackles. HEART: S1, S2 audible. ABDOMEN: Soft, obese, nontender, no rebound, no guarding. NEUROLOGIC: He is awake and alert. Able to communicate. EXTREMITIES: Bilateral legs, no edema. LABORATORY EXAMINATION: WBC is 9.6, hemoglobin 10.7, hematocrit 33, platelet 202. Chemistry: Sodiu m 138, potassium 3.9, chloride 101, CO2 30, BUN 19, creatinine 0.6, blood sugar 179. LFTs are within normal limits. Blood culture and urine cultures are negative. Fungal culture preliminary is negati ve. ASSESSMENT AND PLAN: 1. Status post CT-guided biopsy. The pathology report positive for aspergillosis, status post percu taneous inserted central catheter line placement. Continued almost a month of antifungal. 2. Left basal ganglia mass effect. 3. Left pulmonary upper lobe thrombus. 4. Hypertension. 5. Steroid-induced hyperglycemia. PLAN: Will continue patient on nebulizer treatment. He is on aspirin 81 daily, metformin 500 twice a day. Continue him on Keppra. He has been tapered off of steroids. The patient is scheduled for a RICHARD in a.m. After that, will make a disposition plan when he has completed course of antibiotic. Turner Soler MD cc: [phone] TT: 02/25/2017 18:31:44 Confirmation # [id number] Dictation # [id number] dn
--- NOTE | 2017-02-25 20:44 | CP.PCM.PN ---
Subjective - Date & Time of Evaluation Date of Evaluation: 02/25/17 Time of Evaluation: 13:25 - Subjective Subjective: Comfortable in bed, not in distress, afebrile. Objective - Vital Signs/Intake and Output Vital Signs (last 24 hours): Temp Pulse Resp BP Pulse Ox 98.3 F 66 20 129/74 97 02/25/17 06:00 02/25/17 06:00 02/25/17 06:00 02/25/17 06:00 02/25/17 06:00 Intake and Output: 02/25/17 02/26/17 18:59 06:59 Intake Total 100 Output Total 750 Balance -650 - Medications Medications: Current Medications Acetaminophen (Tylenol 325mg Tab) 650 mg PO Q4 PRN PRN Reason: Pain, Mild (1-3) Last Admin: 02/23/17 12:47 Dose: 650 mg Albuterol/Ipratropium (Duoneb 3 Mg/0.5 Mg (3 Ml) Ud) 3 ml IH Q6H [facility] Last Admin: 02/25/17 19:57 Dose: Not Given Aspirin (Ecotrin) 81 mg PO DAILY [facility] [place] Last Admin: 02/25/17 10:20 Dose: 81 mg Atorvastatin Calcium (Lipitor) 20 mg PO HS JESSICA Last Admin: 02/24/17 22:14 Dose: 20 mg Docusate Sodium (Colace) 200 mg PO HS [facility] [place] Last Admin: 02/24/17 22:14 Dose: 200 mg Enoxaparin Sodium (Lovenox) 40 mg SC DAILY [facility] PRN Reason: Protocol Last Admin: 02/25/17 10:20 Dose: 40 mg Levetiracetam (Keppra 500mg Ivpb) 100 mls @ 460 mls/hr IV Q12 [facility] [place] Last Infusion: 02/25/17 10:44 Dose: Infused Voriconazole 200 mg/ Sodium (Chloride) 100 mls @ 50 mls/hr IVPB Q12 JESSICA PRN Reason: Protocol Stop: 03/02/17 22:01 Last Admin: 02/25/17 10:22 Dose: 50 mls/hr Insulin Human Regular (Humulin R High) 0 units SC ACHS JESSICA PRN Reason: Protocol Last Admin: 02/25/17 16:54 Dose: Not Given Metformin HCl (Glucophage) 500 mg PO BID [facility] [place] Last Admin: 02/25/17 17:01 Dose: 500 mg Pantoprazole Sodium (Protonix Ec Tab) 40 mg PO DAILY [facility] Last Admin: 02/25/17 10:20 Dose: 40 mg Potassium Chloride (Klor-Con 10) 10 meq PO DAILY JESSICA Last Admin: 02/25/17 10:20 Dose: 10 meq - Labs Labs: 02/25/17 07:30 02/25/17 07:30 PT 11.1 Seconds (9.9-11.8) 02/18/17 17:07 INR 1.03 (0.93-1.08) 02/18/17 17:07 APTT 24.3 Seconds (23.7-30.8) 02/18/17 17:07 - Constitutional Appears: Non-toxic, No Acute Distress - Head Exam Head Exam: NORMAL INSPECTION - ENT Exam ENT Exam: Mucous Membranes Moist - Neck Exam Neck Exam: absent: Lymphadenopathy, Meningismus - Respiratory Exam Respiratory Exam: Decreased Breath Sounds - Cardiovascular Exam Cardiovascular Exam: +S1, +S2 - GI/Abdominal Exam GI & Abdominal Exam: Soft. absent: Tenderness Assessment and Plan - Assessment and Plan (Free Text) Plan: Assessment Multiple small cavitary lesions in the lower lobes of both lungs - Aspergillosis noted on pathology of biopsy sample Subacute left basal ganglia CVA hepatitis C DM history of brain tumor (which apparently resolved without specific treatment) obesity with BMI 32 Plan continue Voriconazole - the patient should be treated for at least 2-3 months with weekly CBC, CMP Discussed with Dr. Soler and Dr. Contreras and Dr. Chamberlain Patient will be undergoing a RICHARD and will follow up results Will monitor clinically Explained to patient and that he may develop visual disturbances and they should immediately tell PMD if these occur while the patient is on Voriconazole
--- NOTE | 2017-02-25 21:33 | CON ---
DATE: 02/25/2017 REASON FOR CONSULTATION: Rule out endocarditis. HISTORY OF PRESENT ILLNESS: The patient is a 71-year-old old who was admitted to [facility] 2018 with generalized weakness and was found to have left-sided subacute basal ganglia infarct an d also was found to have cavitary lesion in the lung. He was treated and was [facility] where from he was discharged home and now he developed increasing weakness and facial droop an d was readmitted again. The patient's CT head on 02/18/2017 showed suspicious mass lesion in left bas al ganglia with vasogenic edema. The patient also has bilateral cavitary lesions, possibly due to as pergillus. The patient with known COPD, hypertension, steroid-induced hyperglycemia. Consult has bee n requested with these findings, whether the patient had endocarditis and a possibility to do RICHARD to rule out any vegetations on cardiac valve. The patient lying flat in bed without chest pain, shortne ss of breath, or palpitation. PAST MEDICAL HISTORY: Positive for hypertension, hyperlipidemia, non-insulin dependent diabetes peg itus, morbid obesity, basilar ganglia infarct with right-sided weakness as mentioned above, cavitary lesion in the lungs. PERSONAL HISTORY: The patient has history of heavy smoking, which he stopped only on recent hospital ization. Denies drinking. ALLERGIES: Denies any allergies. HOME MEDICATIONS: The patient was on ferrous sulfate, Colace, Protonix, Restoril, potassium, metform in, atorvastatin, aspirin. REVIEW OF SYSTEMS: All the systems were reviewed, positive mentioned in the history, others were neg ative. PHYSICAL EXAMINATION: VITAL SIGNS: Blood pressure 129/74, respirations 20, pulse 66, temperature 98.3. HEENT: Head is normocephalic. Eyes: Pupils normal. Conjunctivae slightly pale. NECK: JVP low. Carotid equal. THORAX: AP diameter normal. LUNGS: No rales. CARDIOVASCULAR: S1, S2. ABDOMEN: Soft, nontender, no organomegaly. Bowel sounds normal. EXTREMITIES: No clubbing, no cyanosis. LABORATORY DATA: Show WBC 9.6, hemoglobin 10.7, hematocrit 33.0, platelets 202. Sodium 138, potassi um 3.9, BUN 19, creatinine 0.6. AST, ALT normal. Total protein normal. DIAGNOSES: Bilateral cavitary lesion in the lung, suspicious mass lesion in left basal ganglia with vasogenic edema, rule out metastasis, chronic obstructive pulmonary disease, aspergillus infection, o besity, anemia, hyperglycemia. PLAN: Clinically, there is no evidence of endocarditis; however, will arrange RICHARD. The patient on me tformin 500 b.i.d., aspirin 81 mg p.o. daily, nebulizer therapy, potassium 10 mg p.o. daily, Lipitor 20 mg p.o. daily, Lovenox 40 mg subQ daily, Voriconazole 200 mg IV q. 12 hours, levetiracetam I V q. 12 hours, metformin 500 b.i.d. We will continue present therapy and we will follow with you. Rickey Christianson MD cc: [phone] TT: 02/25/2017 21:33:09 Confirmation # [id number] Dictation # [id number] ln
--- NOTE | 2017-02-25 22:39 | PN ---
DATE: 02/25/2017 This is the patient's hospital visit on the medical floor. For Dr. Parmar. SUBJECTIVE: The patient is a 71-year-old male seen sitting up in bed, at the bedside, known to have cavitary lesions of his lung with metastatic lesions to his brain(?), admitted for evaluation of increasing weakness, facial droop with patient status post CT-guided biopsy, positive for aspergillo sis. The patient now status post PICC line placement. He has a left basal ganglia mass lesion with v asogenic edema, most consistent with tumor. Also suffers from diabetes with gait dysfunction. Now s tarted on antifungal as per Dr. Newby. After PICC line was placed, there was bleeding at the site wi th this now controlled as per Dr. Ryan Moffett's recommendations. He is in no acute distress. PHYSICAL EXAMINATION: VITAL SIGNS: Temperature 98.3, pulse 66, respirations 20, blood pressure 129/74, pulse ox 97%. HEENT: Unremarkable. NECK: Supple. LUNGS: Decreased sounds at the bases. ABDOMEN: Obese, soft, and nontender. EXTREMITIES: Faint edema at the lower extremities. NEUROLOGIC: Awake and alert. SKIN: Otherwise, warm, dry and clear. LABORATORY DATA: The patient's labs were done. White blood cell count 9.6, hemoglobin 10.7, hematoc rit 33.0, platelet count 202,000 with a chem metabolic panel completely within normal limits. The vasile lombardo did have cardiac catheterization done. . ASSESSMENT: Cavitary lesions of the lungs, left basal ganglia, cerebrovascular accident with mass, a spergillosis on biopsy, hepatitis C, diabetes, hypertension, history of heavy alcohol use, history of 64-pdcl-pfey smoking. PLAN: The patient is to continue hemostasis for his PICC line placement, humidify his oxygen treatme nt for aspergillosis as per Dr. Posadas and Dr. Newby with the prognosis for this patient guarded. Amrit Godinez MD cc: [phone] TT: 02/25/2017 22:38:53 Confirmation # [id number] Dictation # [id number] ln
[2017-02-26] MEDS: Albuterol-Ipratrop 3 mg / 0.5 (3 ml) UD IH SCH ×4 (01:50→20:17)
--- NOTE | 2017-02-26 07:44 | PN ---
DATE: 02/26/2017 SUBJECTIVE: The patient appears comfortable at rest. He is not short of breath. PHYSICAL EXAMINATION: VITAL SIGNS: Temperature is 98.3, pulse 66, respirations 18, blood pressure 129 /74. Oxygen saturation on nasal cannula is 97%. HEENT: Normocephalic, atraumatic. No JVD. CARDIOVASCULAR: Positive S1, S2. No S3. LUNGS: Clear bilaterally this morning. EXTREMITIES: Mild edema. No cyanosis, no clubbing. Calves are nontender to palpation. GASTROINTESTINAL: Abdomen is soft, nontender, nondistended. Bowel sounds are positive. SKIN: No acute rash. NEUROLOGIC: Limited at the present time. IMPRESSION: 1. Bilateral lung nodules -- cavitary. Pathology consistent with aspergillosis. 2. Chronic obstructive pulmonary disease. 3. Multiple brain masses. 4. Hypertension. PLAN: The patient appears very comfortable this morning. He is not short of breath at rest. He states he is feeling much better overall. On physical exam , his lungs are now clear. Oxygen saturation on nasal cannula is 97%. I will continue with the current nebulizer treatments for now. I would continue with the antibiotic coverage as per infectious disease. Input by Dr. Newby is noted. Again, the patient will need rescanning of his chest and brain -- in the future. I will discuss the timing of the rescanning with infectious disease. The patient is also for transesophageal echocardiogram later today. His clinical status has certainly improved overall. I will discuss the above with Dr. Soler. Diony Contreras MD cc: [phone] TT: 02/26/2017 07:44:39 Confirmation # [id number] Dictation # [id number] en MTDD
[2017-02-26 07:55] LABS: ADD MANUAL DIFF? NO
[2017-02-26] MEDS: Insulin Reg-HIGH-Coverage SC SCH ×5 (07:58→22:52)
[2017-02-26 08:07] LABS: BASO # 0.01 K/mm3 (0.0-2.0); BASO % 0.1 % (0.0-3.0); EOS # 0.1 (0.0-0.7); GRAN # 9.86 (1.4-6.5); GRAN % 81.7 % (50.0-68.0); HEMATOCRIT 35.2 % (42.0-52.0); LYMPH # 1.2 (1.2-3.4); LYMPH % 9.9 % (22.0-35.0); MEAN CELL VOLUME 95.7 fL (80.0-105.0); MEAN CORPUSCULAR HEMOGLOBIN 31.5 pg (25.0-35.0); MEAN PLATELET VOLUME 9.9 fl (7.0-11.0); MONO # 0.9 (0.1-0.6); MONO % 7.3 % (1.0-6.0); PLATELET COUNT 203 10^3/uL (120.0-450.0); RED CELL DISTRIBUTION WIDTH 15.7 % (11.5-14.5); WHITE BLOOD COUNT 12.1 10^3/ul (4.5-11.0)
[2017-02-26 08:09] LABS: BLOOD UREA NITROGEN 17 mg/dL (7-21); CALCIUM 9.1 mg/dL (8.4-10.5); CARBON DIOXIDE 28 mmol/L (21-33); CHLORIDE 100 mmol/L (98-107); GFR AFRICAN-AMERICAN > 60; GLUCOSE,RANDOM 88 mg/dL (70-110); POTASSIUM 3.7 mmol/L (3.6-5.0); SODIUM 138 mmol/L (132-148)
[2017-02-26] MEDS: levETIRAcetam 500mg IVPB 100 ML IV SCH ×2 (09:10→22:52)
[2017-02-26] MEDS: Potassium Chloride 10 mEq ER Tab PO SCH (09:13)
[2017-02-26] MEDS: Enoxaparin 40 mg Syringe SC SCH (09:13)
[2017-02-26] MEDS: Pantoprazole 40 mg EC Tab PO SCH (09:13)
[2017-02-26] MEDS ORDERED: Naloxone 0.4 mg/ml Inj (Adult) ONE (11:01)
[2017-02-26] MEDS ORDERED: Midazolam 2 MG/2 ML VIAL ONE (11:01)
[2017-02-26] MEDS ORDERED: Flumazenil 0.1 mg/ml Inj (5ml) IVP ONE (11:01)
[2017-02-26] MEDS ORDERED: Midazolam 2 MG/2 ML VIAL IV ONE ×2 (11:22→11:24)
[2017-02-26] MEDS ORDERED: Sodium Chloride 0.9% 1,000 ML IV SCH (11:45)
--- NOTE | 2017-02-26 12:06 | PN ---
DATE: 02/26/2017 REASON FOR CONSULTATION AND FOLLOWUP: Rule out endocarditis. BRIEF CLINICAL HISTORY: This is a 71-year-old male with a past medical history significant for hyper tension, hyperlipidemia, obesity, noninsulin-dependent diabetes, obesity, had a basilar ganglia infar ct as well as cavitary lesion of the lungs, so a RICHARD was requested. The patient underwent RICHARD that showed preserved left ventricular function, ejection fraction of 60-65 %, mild to moderate mitral regurgitation, trace tricuspid regurg, and trace pulmonary insufficiency, moderate aortic regurgitation; no evidence of endocarditis noted. Continue current treatment. Of note, it is very important to mention that patient needs a sleep stud y because the patient during sedation was sleeping consistent with obstructive sleep apnea, so consid er sleep apnea. Will sign off for now. Glad to follow p.r.n. Thank you, Dr. Soler, for providing the opportunity in taking care of this patient. Rickey Palafox MD cc: [phone] TT: 02/26/2017 12:05:34 Confirmation # [id number] Dictation # [id number] mn
--- NOTE | 2017-02-26 12:44 | CARD ---
APPROVED REPORT EXAM: Transesophageal echocardiogram with color flow Doppler. INDICATION Infection : Rule out subacute bacterial endocarditis LEFT VENTRICLE The left ventricle is normal size. There is mild left ventricular hypertrophy. The left ventricular function is normal.EF-55-60% There is normal LV segmental wall motion. The left ventricular diastolic function is normal. No left ventricle thrombus noted on this study. There is no ventricular septal defect visualized. There is no left ventricular aneurysm. There is no mass noted in the left ventricle. RIGHT VENTRICLE The right ventricle is normal size. There is normal right ventricular wall thickness. The right ventricular systolic function is normal. ATRIA The left atrium is borderline dilated. The right atrium is mildly dilated. The interatrial septum is intact with no evidence for an atrial septal defect. AORTIC VALVE The aortic valve is mildly sclerotic. There is moderate aortic regurgitation. There is no aortic valvular stenosis. There is no aortic valvular vegetation. MITRAL VALVE The mitral valve leaflets are thickened. There is no evidence of mitral valve prolapse. There is no mitral valve stenosis. Mitral regurgitation is mild to moderate. TRICUSPID VALVE The tricuspid valve leaflets display thickening. There is trace tricuspid regurgitation. There is no tricuspid valve prolapse or vegetation. There is no tricuspid valve stenosis. PULMONIC VALVE The pulmonic valve is borderline thickened. There is trace pulmonic valvular regurgitation. There is no pulmonic valvular stenosis. GREAT VESSELS The aortic root is normal in size. The ascending aorta is normal in size. The pulmonary artery is normal. The IVC is normal in size and collapses >50% with inspiration. <Conclusion> Normal LV Size and Function. EF-55-60% Moderate AR. Mild to Moderate MR Trace PI/TR Moderate Plaque in descending aorta. Velocity in BALWINDER more than 0.8 m/s. NO EVEDENCE of ENDOCARDITIS noted. Off Note it is important to mention during conscious sedation pt was behaving as having sleep Apnea Suggest : Sleep studyto R/O ALLAN.
--- NOTE | 2017-02-26 13:05 | PN ---
DATE: 02/26/2017 SUBJECTIVE: The patient is 71 years old, seen and examined, lying in bed comfortable. Not in any di stress. No chest pain, no shortness of breath. Last night's events noted. He had PICC line placed that was bleeding because he was given a dose of Lovenox; however, by pressure it was controlled. He is not actively bleeding right now. PHYSICAL EXAMINATION: VITAL SIGNS: He is afebrile, pulse 89, respirations 20, blood pressure 144/80. LUNGS: Bilateral fair airflow, no rhonchi or crackle. HEART: S1, S2 audible. ABDOMEN: Soft, obese, nontender, no rebound, no guarding. NEUROLOGIC: He is awake and alert, communicative. LABORATORY EXAMINATION: WBC is 12.1, hemoglobin 11.6, hematocrit 35.2, platelet of 203. Chemistry: Sodium 138, potassium 3.7, chloride 100, CO2 of 28, BUN 17, creatinine 0.6, blood sugar of 88. Cult ures are negative. He had echocardiogram done, that is pending. ASSESSMENT: 1. Bilateral lung cavitary lesion. Biopsy shows aspergillosis and status post catheter peripherally inserted central catheter line placement. 2. Left basal ganglia mass. 3. Generalized weakness. 4. Hypertension. 5. History of active smoking up until his hospitalization. PLAN: We will continue nebulizer treatment. Continue him on aspirin 81 daily. He is on metformin 5 00 twice a day. I will monitor his blood sugar. He is on Keppra, we will continue that. He is on s tatin, Lovenox, Protonix and he is voriconazole. We will continue that for 6-8 weeks and patient is scheduled to have RICHARD done. After that, we will make a disposition plan and the patient might be ref erred to [facility]. Turner Soler MD cc: [phone] TT: 02/26/2017 13:05:13 Confirmation # [id number] Dictation # [id number] sn
--- NOTE | 2017-02-26 22:46 | PN ---
DATE: 02/26/2017 SUBJECTIVE: The patient was seen earlier this morning, appears to be improving. The patient is resp onsive, no fevers. PHYSICAL EXAMINATION: VITAL SIGNS: Temperature is 98, blood pressure is 140/80, respiratory rate of 20, heart rate of 84. HEENT: Unremarkable. NECK: Supple. LUNGS: Have decreased breath sounds. HEART: Normal S1, S2. ABDOMEN: Soft. LABORATORY DATA: Reveals a white count of 12,100. Chemistries reveal the BUN of 17, creatinine of 0 .6. Urinalysis is noted. Review of the orders reveals the patient to be on Voriconazole. ASSESSMENT AND PLAN: This is a 71-year-old male with multiple small cavitary lesion in lower lobes o f both lungs, Aspergillus, currently on Voriconazole, history of subacute left basal ganglia cerebrov ascular accident, hepatitis C. The echo is noted from this day, no aortic valve vegetation is noted. No evidence of endocarditis is noted. Sheldon Posadas MD cc: [phone] TT: 02/26/2017 22:45:35 Confirmation # [id number] Dictation # [id number] jn
[2017-02-27] MEDS: Albuterol-Ipratrop 3 mg / 0.5 (3 ml) UD IH SCH ×3 (02:00→14:12)
--- NOTE | 2017-02-27 08:14 | PN ---
DATE: 02/27/2017 SUBJECTIVE: The patient appears comfortable this morning. He is not short of breath. PHYSICAL EXAMINATION: VITAL SIGNS: Temperature is 98.0, pulse 80, respirations 18/20, blood pressure 140/82. Oxygen saturation on nasal cannula is 97 to 99%. HEENT: Normocephalic, atraumatic. No JVD. CARDIOVASCULAR: Positive S1, S2. No S3. LUNGS: Clear bilaterally. EXTREMITIES: Mild edema. No cyanosis, no clubbing. Calves are nontender to palpation. GASTROINTESTINAL: Abdomen is soft, nontender, nondistended. Bowel sounds are positive. SKIN: No acute rash. NEUROLOGIC: Limited at the present time. IMPRESSION: 1. Bilateral lung nodules -- cavitary. Pathology consistent with aspergillosis. 2. Chronic obstructive pulmonary disease. 3. Multiple brain masses. 4. Hypertension. PLAN: The patient appears very comfortable this morning. He is not short of breath at rest. He does state to feeling much better overall. On physical exam , his lungs remain clear. Oxygen saturation on nasal cannula is 97 to 99%. I will continue with the current nebulizer treatments for now. The patient remains on voriconazole -- as per infectious disease. Input by Dr. Posadas is noted. I will discuss the timing of the repeat CT scanning (of the lungs and brain) -- with infectious disease. The patient did have a transesophageal echocardiogram done yesterday. There is no evidence of vegetations. Clinical status of the patient is improved overall. I will discuss the above with Dr. Soler. Diony Contreras MD cc: [phone] TT: 02/27/2017 08:13:30 Confirmation # [id number] Dictation # [id number] jn [id number]
[2017-02-27] MEDS: Insulin Reg-HIGH-Coverage SC SCH ×3 (09:36→16:44)
[2017-02-27] MEDS: levETIRAcetam 500mg IVPB 100 ML IV SCH (09:36)
[2017-02-27] MEDS: Potassium Chloride 10 mEq ER Tab PO SCH (09:37)
[2017-02-27] MEDS: Enoxaparin 40 mg Syringe SC SCH (09:37)
[2017-02-27] MEDS: Pantoprazole 40 mg EC Tab PO SCH (09:38)
[2017-02-27 10:01] VITALS: O2SAT 96
--- NOTE | 2017-02-27 11:30 | PN ---
DATE: 02/27/2017 The patient is in bed, in no acute distress, was seen earlier today, improving slowly. PHYSICAL EXAMINATION: VITAL SIGNS: Temperature is 97, blood pressure is 140/70, respiratory rate 16. HEENT: Unremarkable. NECK: Supple. LUNGS: Have decreased breath sounds. HEART: Normal S1, S2. ABDOMEN: Soft, nontender. LABORATORY EXAMINATION: Reveals the patient has a white count of 12,100, hemoglobin of 11, platelets of 203. Chemistries reveals the BUN of 17, creatinine of 0.6. Urinalysis is noted. The lung cultu res are pending, no WBCs seen, no organisms seen. Mycobacterium cultures are pending. ASSESSMENT AND PLAN: A 71-year-old male with multiple small cavitary lesions in lower lobes of both lungs, Aspergillus and currently on voriconazole with a history of subacute left basal ganglia cerebr ovascular accident, hepatitis C and the echo is reviewed, no evidence of endocarditis. Review of ord ers reveals the patient to have voriconazole to be available. We will check on the final pathology r eport. Sheldon Posadas MD cc: [phone] TT: 02/27/2017 11:29:12 Confirmation # [id number] Dictation # [id number]
[2017-02-27] MEDS ORDERED: Oxycodone/Acetaminophen 5/325 mg Tab PO PRN (11:32)
--- NOTE | 2017-02-27 11:45 | PN ---
DATE: 02/26/2017 This is the patient's hospital visit. For Dr. Parmar. SUBJECTIVE: The patient is a 71-year-old male seen sitting up in bed, at the bedside, noted to have cavitary lesions in the lung, now consistent with aspergillosis, being treated with antifungal t reatment, fungicide, as per infectious disease regulatory consultant Dr. Sheldon Posadas, also with recent evalu ation for facial droop, weakness, now status post PICC line placement with bleeding afterwards, now c ontrolled. He is known to have a basal ganglion mass lesion with vasogenic edema consistent with cesia or, diabetes, gait dysfunction. Now sitting up in bed without complaint. OBJECTIVE AND PHYSICAL EXAMINATION: VITAL SIGNS: On date of the visit, temperature 97.6, pulse 69, respirations 22, blood pressure 133/8 8, pulse ox of 96%. HEENT: Unremarkable. NECK: Supple. HEART: Regular rate. LUNGS: Decreased breath sounds at the bases. ABDOMEN: Obese, soft, nontender. EXTREMITIES: Faint +1 edema lower extremities bilaterally. NEUROLOGIC: Awake and alert. SKIN: Otherwise, warm, dry and clear. The patient's labs were done. White blood cell count of 12.1, hemoglobin 11.6, hematocrit 35.2, plat elet count 203,000. A chem metabolic panel completely within normal range. The patient did have an echocardiogram done. It was read as left ventricular ejection fraction 55%-6 0%, moderate AR, no evidence of endocarditis noted. The patient also had a transesophageal echo, report is pending. ASSESSMENT: For this patient is that of cavitary lesion in the lungs, left basal ganglia, cere brovascular accident with mass, aspergillosis, hepatitis C, diabetes, hypertension, history of heavy alcohol use, history of heavy smoking use. PLAN: For this patient is to continue present medical regimen with fungicides as per infectious dise ase consultants. Once the PICC line is available, we will use it for continuation of his treatment w ith the patient being monitored clinically and with labs. Amrit Godinez MD cc: [phone] TT: 02/27/2017 11:44:47 Confirmation # [id number] Dictation # [id number] en
[2017-02-27 12:59] LABS: ADD MANUAL DIFF? NO
[2017-02-27 13:04] LABS: BASO # 0.01 K/mm3 (0.0-2.0); BASO % 0.1 % (0.0-3.0); EOS # 0.2 (0.0-0.7); EOS % 2.4 % (1.5-5.0); GRAN # 6.22 (1.4-6.5); HEMATOCRIT 32.7 % (42.0-52.0); LYMPH # 1.4 (1.2-3.4); LYMPH % 16.3 % (22.0-35.0); MEAN CELL VOLUME 95.9 fL (80.0-105.0); MEAN CORPUSCULAR HEMOGLOBIN 31.7 pg (25.0-35.0); MEAN PLATELET VOLUME 9.9 fl (7.0-11.0); MONO # 0.5 (0.1-0.6); MONO % 6.2 % (1.0-6.0); PLATELET COUNT 183 10^3/uL (120.0-450.0); RED CELL DISTRIBUTION WIDTH 15.6 % (11.5-14.5); WHITE BLOOD COUNT 8.3 10^3/ul (4.5-11.0)
[2017-02-27 13:10] LABS: BLOOD UREA NITROGEN 12 mg/dL (7-21); CALCIUM 9.1 mg/dL (8.4-10.5); CARBON DIOXIDE 28 mmol/L (21-33); CHLORIDE 102 mmol/L (98-107); GFR AFRICAN-AMERICAN > 60; GLUCOSE,RANDOM 94 mg/dL (70-110); POTASSIUM 3.8 mmol/L (3.6-5.0); SODIUM 138 mmol/L (132-148)
[2017-02-27 13:22] LABS: TROPONIN I < 0.01 ng/mL
--- NOTE | 2017-02-27 13:48 | PN ---
DATE: 02/27/2017 The patient is a 71-year-old, seen and examined, complained of left shoulder pain. Otherwise, doing well. Scanty cough here and there. PHYSICAL EXAMINATION: VITAL SIGNS: He is afebrile, pulse 69, respirations 22, blood pressure 133/88. LUNGS: Bilateral fair airflow, no rhonchi or crackle. HEART: S1, S2 audible. ABDOMEN: Soft, nontender, no rebound, no guarding. NEUROLOGIC: The patient is awake and alert, able to communicate. EXTREMITIES: Complained of some restricted movement in the left shoulder. LABORATORY EXAMINATION: WBCs 8.3, hemoglobin 10.8, hematocrit 32.7, platelets 183. Chemistry: Sodi um 138, potassium 3.8, chloride 102, CO2 28, BUN 12, creatinine 0.6, blood sugar of 94. ASSESSMENT: 1. Bilateral cavitary lesions, growing Aspergillus on CT-guided biopsy. 2. Negative transesophageal echocardiogram. 3. Left basal ganglia subacute infarct. 4. Hypertension. 5. Left shoulder osteoarthritis. 6. Steroid-induced hyperglycemia. PLAN: I will request Dr. Carlson to evaluate for her left shoulder pain and social services manager are in the process of making arrangements to transfer him to [facility], where he will finish his course of IV voriconazole that has been suggested by ID to complete for 6-8. I will follow up patient there . Turner Soler MD cc: [phone] TT: 02/27/2017 13:47:28 Confirmation # [id number] Dictation # [id number] en
--- NOTE | 2017-02-27 14:10 | PN ---
DATE: 02/27/2017 This is the patient's hospital visit on the medical floor. For Dr. Parmar. HISTORY OF PRESENT ILLNESS: The patient is a 71-year-old male seen sitting up in bed, at the [facility], known to have cavitary lesions in the lung consistent with aspergillosis, being treated with a ntifungal agents as per Dr. Posadas with good effect. The patient also is known to suffer from di abetes, ganglion mass lesion, also recently diagnosed facial droop now improved, status post placemen t of PICC line with no further bleeding at that site. Today, he is reporting chest discomfort on the left side for which Dr. Palafox has been following him with transesophageal echo recently done with uday lgesics being given. However, the patient did not eat his lunch, reporting that discomfort persists. We will ask for cardiac enzymes to be done with followup with Dr. Palafox as indicated. Oxygen will b e placed in the interim. PHYSICAL EXAMINATION: VITAL SIGNS: Temperature 97.6, pulse 69, respirations 22, blood pressure 133/88, pulse ox 96%. HEENT: Unremarkable. NECK: Supple. HEART: Regular rate. LUNGS: Clear. ABDOMEN: Obese, soft, and nontender. EXTREMITIES: Faint +1 edema in the left upper extremity. SKIN: Warm, dry and clear. NEUROLOGIC: Awake and alert. LABORATORY DATA: White blood cell count 8.3, hemoglobin 10.8, hematocrit 32.7, platelet count 183,00 0 with a chem metabolic panel within normal limits with a CK less than 20, troponin less than 0.01 do ne after his complaint of chest pain this morning. The patient did have a transesophageal echo done, read by Dr. Palafox, showing left ventricular ejection fraction 60%-65% with no evidence of endocarditis. ASSESSMENT: Aspergillosis with cavitary lesions in the lung, cerebrovascular accident, basal ganglia mass lesion, vasogenic edema consistent with tumor, hepatitis C, diabetes, hypertension, history of heavy alcohol use, smoker. PLAN: Continue his present medical regimen. We will monitor clinically and with labs with continuat ion of his antifungal agent as per Dr. Posadas's recommendations. Prognosis for this patient is g uarded. We will continue oxygen temporarily with followup with Dr. Palafox regarding his chest discomfo rt with analgesics as per Dr. Soler. Amrit Gretchen RESTREPO cc: [phone] TT: 02/27/2017 14:09:44 Confirmation # [id number] Dictation # [id number] rn
[2017-02-27] MEDS ORDERED: Bupivacaine 0.5% Inj(30mL) IJ ONE (14:22)
[2017-02-27] MEDS ORDERED: MethylPREDNISolone Depo 40 mg/ml Inj IM ONE (14:22)
--- NOTE | 2017-02-27 15:09 | CON ---
DATE: 02/27/2017 The patient is a 71-year-old male with left shoulder pain. X-ray shows osteoarthritis of the AC join t from previous injuries while he was actively working. He does have the ability to abduct the arm e thais though it is weak from a hemiparesis from CVA and he has pain at night when he wants to sleep and especially when he lays on it so with the x-ray evidence of AC joint arthritis, we injected the lef t shoulder and AC joint with Depo-Medrol and Marcaine. Hopefully, we get some symptomatic results. He is not a surgical candidate at this time. Hopefully, this shot of Depo-Medrol and Marcaine will l ast for a while and when he goes to rehab, possibly we could start therapy because I heard he is korin g this evening. FINAL DIAGNOSIS: Left AC joint osteoarthritis with subacromial impingement and spurs, and we injecte d with Depo-Medrol and Marcaine. Kurtis Carlson DO cc: [id number] TT: 02/27/2017 15:08:32 Confirmation # [id number] Dictation # [id number]
[2017-02-27 16:51] VITALS: BP 119/74; PULSE 87; RESP 20; TEMP 98
== END 2017-02-27 18:19 | DRG 867 ==
LOC: ED 16:32 → ERH 18:43 → 2RNO 23:18 → 3RNO 02-23 18:37
PROVIDERS: ADMIT Internal Medicine; ATTEND Internal Medicine
PROC: 0BBJ3ZX Excision of Left Lower Lung Lobe, Percutaneous Approach, Diagnostic (ICD-10-PCS; principal; 2017-02-20 11:00)
PROC: 02HV33Z Insertion of Infusion Device into Superior Vena Cava, Percutaneous Approach (ICD-10-PCS; 2017-02-25)
PROC: B548ZZA Ultrasonography of Superior Vena Cava, Guidance (ICD-10-PCS; 2017-02-25)
PROC: B24BZZ4 Ultrasonography of Heart with Aorta, Transesophageal (ICD-10-PCS; 2017-02-26)
PROC: 3E0U33Z Introduction of Anti-inflammatory into Joints, Percutaneous Approach (ICD-10-PCS; 2017-02-27)
PROC: 3E0U3BZ Introduction of Anesthetic Agent into Joints, Percutaneous Approach (ICD-10-PCS; 2017-02-27)
DX: B44.1 Other pulmonary aspergillosis (principal); G93.6 Cerebral edema; I69.351 Hemiplegia and hemiparesis following cerebral infarction affecting right dominant side; E11.65 Type 2 diabetes mellitus with hyperglycemia; R56.9 Unspecified convulsions; I10 Essential (primary) hypertension; B19.20 Unspecified viral hepatitis C without hepatic coma; E78.5 Hyperlipidemia, unspecified; G51.0 Bell's palsy; D64.9 Anemia, unspecified; J44.9 Chronic obstructive pulmonary disease, unspecified; M19.012 Primary osteoarthritis, left shoulder; R62.7 Adult failure to thrive; G47.33 Obstructive sleep apnea (adult) (pediatric); I08.0 Rheumatic disorders of both mitral and aortic valves; T38.0X5A Adverse effect of glucocorticoids and synthetic analogues, initial encounter; F17.210 Nicotine dependence, cigarettes, uncomplicated; E66.9 Obesity, unspecified; Z79.84 Long term (current) use of oral hypoglycemic drugs; Z68.32 Body mass index [BMI] 32.0-32.9, adult; Z79.82 Long term (current) use of aspirin

== ENCOUNTER 2017-03-14 18:30 | Inpatient (IN) | payer MEDICARE ==
[2017-03-14 18:34] VITALS: BMI 35.9
--- NOTE | 2017-03-14 18:56 | ED PDOC ---
Arrival/HPI - General Chief Complaint: Trauma Time Seen by Provider: 03/14/17 18:40 Historian: Patient, Spouse, Other (daughter) - History of Present Illness Narrative History of Present Illness (Text): 03/14/17 18:51 A 71 year old male, whose past medical history includes hypertension, diabetes, hyperlipidemia, and a recent basal ganglia infarct with right sided weakness, presents to the emergency department because according to patient's and daughter, patient was confused and had slurred speech since yesterday. Patient in [facility] since stroke. Daughter also notes patient had right facial droop earlier. Patient also fell forward out of wheelchair yesterday, although was in sitting position when fell. Patient himself admits to a headache, but denies focal weakness, chest pain, shortness of breath or any other complaints at this time. Patient is alert and alerted to place and person, not time. Time/Duration: Other (yesterday) Symptom Onset: Sudden Symptom Course: Unchanged Activities at Onset: Rest Modifying Factors (Text): none Context: Other ([facility]) Associated Symptoms (Text): headache Past Medical History - Provider Review Nursing Documentation Reviewed: Yes - Infectious Disease Hx of Infectious Diseases: None - Cardiac Hx Hypertension: Yes - Pulmonary Hx Respiratory Disorders: No - Neurological HX Cerebrovascular Accident: Yes Other/Comment: L sided weakness - HEENT Hx HEENT Disorder: No - Renal Hx Renal Disorder: No - Endocrine/Metabolic Hx Diabetes Mellitus Type 2: Yes - Hematological/Oncological Hx Hepatitis C: Yes - Integumentary Hx Dermatological Disorder: No - Musculoskeletal/Rheumatological Hx Falls: Yes Hx Unsteady Gait: Yes (frequent falling) - Gastrointestinal Hx Gastrointestinal Disorders: No - Genitourinary/Gynecological Hx Genitourinary Disorders: No - Psychiatric Hx Substance Use: No Other/Comment: smoking - 1 ppd, non since december - Anesthesia Hx Anesthesia Reactions: No Hx Malignant Hyperthermia: No Family/Social History - Physician Review Nursing Documentation Reviewed: Yes Family/Social History: No Known Family HX Smoking Status: Former Smoker Hx Alcohol Use: No Hx Substance Use: No Allergies/Home Meds Allergies/Adverse Reactions: Allergies No Known Allergies Allergy (Verified 01/14/17 23:09) Home Medications: Home Meds Medication Instructions Recorded Confirmed Pantoprazole Sodium [Protonix] 40 mg PO DAILY 01/07/17 03/14/17 Albuterol/Ipratropium [Duoneb 3 3 ml IH Q6H 01/15/17 03/14/17 mg/0.5 mg (3 ml) UD] Aspirin [Ecotrin] 81 mg PO DAILY 01/15/17 03/14/17 Metformin HCl [Glucophage] 500 mg PO BID 01/15/17 03/14/17 Docusate [Colace] 2 cap PO HS 02/05/17 03/14/17 Potassium Chloride [K-Tab ER] 10 meq PO DAILY 02/05/17 03/14/17 Review of Systems - Physician Review All systems were reviewed & negative as marked: Yes - Review of Systems Constitutional: absent: Fevers Eyes: absent: Vision Changes Respiratory: absent: SOB Cardiovascular: absent: Chest Pain Gastrointestinal: absent: Abdominal Pain, Nausea, Vomiting Neurological: Headache, Speech Changes (slurred), Facial Droop. absent: Focal Weakness Physical Exam Vital Signs Reviewed: Yes Vital Signs Temp Pulse Resp BP Pulse Ox 03/14/17 20:30 97.8 F 82 20 109/66 94 L 03/14/17 18:39 97.5 F L 60 16 122/70 99 Temperature: Afebrile Blood Pressure: Normal Pulse: Regular Respiratory Rate: Normal Appearance: Positive for: Well-Appearing, Non-Toxic, Comfortable Pain Distress: None Mental Status: Positive for: other (Alert and Oriented to person, place but not to time) Finger Stick Blood Glucose: 79 - Systems Exam Head: Present: Atraumatic, Normocephalic Pupils: Present: PERRL Extroacular Muscles: Present: EOMI Conjunctiva: Present: Normal Mouth: Present: Moist Mucous Membranes Pharnyx: Present: Normal. No: ERYTHEMA Neck: Present: Normal Range of Motion Respiratory/Chest: Present: Clear to Auscultation, Good Air Exchange. No: Respiratory Distress, Accessory Muscle Use Cardiovascular: Present: Regular Rate and Rhythm, Normal S1, S2. No: Murmurs Abdomen: Present: Normal Bowel Sounds. No: Tenderness, Distention, Peritoneal Signs Back: Present: Normal Inspection Upper Extremity: Present: Normal Inspection. No: Cyanosis, Edema Lower Extremity: Present: Normal Inspection. No: Edema Neurological: Present: GCS=15, CN II-XII Intact, Speech Normal Skin: Present: Warm, Dry, Normal Color. No: Rashes Psychiatric: Present: Alert, Normal Insight, Normal Concentration, Other ( oriented to place and person, not time) Medical Decision Making ED Course and Treatment: 03/14/17 19:11 Impression: A 71 year old male with slurred speech and right facial droop. Patient is alert and oriented to place and person. Differential Diagnosis included but are not limited to: cerebrovascular accident vs. mass(es), given recent history vs. metabolic etiology Plan: -- EKG -- CT head wo contrast -- chest xray -- Urinalysis -- labs -- Reassess and disposition Prior Visits: Notes and results from previous visits were reviewed. Patient last reported to emergency department on 02/18/17 for evaluation of left sided weakness and slurred speech. Patient was admitted under Dr. Soler's service. Progress Notes: EKG: Ordered, reviewed, and independently interpreted the EKG. Rate : 84 BPM Rhythm : NSR Interpretation : No ST/T changes, normal intervals, normal axis Comparison : No previous EKG for comparison. Case has been discussed with Dr. Swartz, covering Dr. Soler for admission to Dr. Soler's service. CT head: IMPRESSION: - Compared to head CT of 02/18/2017, there has been interval mild enlargement of the previously seen left basal ganglia and left frontal lobe intracranial masses. The larger mass, in the left basal ganglia, measures 4 cm. Associated vasogenic edema and intracranial are also mildly worsened in the interim, with midline shift to the right of 1 cm now seen. - No evidence of acute intracranial hemorrhage. - See above for remaining findings. Dictated and Authenticated by: Shira Bernal MD 03/14/2017 8:56 PM Eastern Time ([place] & [place]) Patient with noted history of mass vs cva. There is now present a worsening of the findings on previous CT with midline shift present. Will give decadron here in the ED. NIHSS is 1 and is not a tpa candidate. Discussed with Dr. Hernandez, who mentioned that there may be two processes in this case with a mass( es) and a cva. - Lab Interpretations Lab Results: 03/14/17 19:35 03/14/17 19:35 Lab Results 03/14/17 19:35: Blood Type Pending, Antibody Screen Pending, BBK History Checked Patient has bt 03/14/17 19:35: Sodium 138, Potassium 4.5, Chloride 102, Carbon Dioxide 27, Anion Gap 14, BUN 15, Creatinine 0.7, Est GFR ( Amer) > 60, Est GFR (Non- Af Amer) > 60, Random Glucose 71, Calcium 9.4, Total Bilirubin 0.7, AST 33, ALT 36, Alkaline Phosphatase 96, Lactate Dehydrogenase 698, Total Creatine Kinase 32 L, Troponin I < 0.01, Total Protein 7.3, Albumin 3.9, Globulin 3.4, Albumin/ Globulin Ratio 1.1, Triglycerides 257 H, Cholesterol 155, LDL Cholesterol Direct 83, HDL Cholesterol 38, Lipase 160 03/14/17 19:35: PT 10.7, INR 0.99, APTT 25.0 03/14/17 19:35: WBC 6.1 D, RBC 3.61, Hgb 11.4 L, Hct 34.8 L, MCV 96.4, MCH 31.6 , MCHC 32.8, RDW 14.6 H, Plt Count 277, MPV 9.9, Gran % 60.7, Lymph % (Auto) 28.3, Norton % (Auto) 9.5 H, Eos % (Auto) 1.3 L, Baso % (Auto) 0.2, Gran # 3.71, Lymph # 1.7, Norton # 0.6, Eos # 0.1, Baso # 0.01 I have reviewed the lab results: Yes - RAD Interpretation Radiology Orders: 03/14/17 18:51 CHEST PORTABLE [RAD] Stat 03/14/17 18:52 HEAD W/O CONTRAST [CT] Stat - EKG Interpretation Interpreted by ED Physician: Yes Type: 12 lead EKG - Medication Orders Current Medication Orders: Discontinued Medications Dexamethasone (Decadron Inj) 4 mg IVP STAT STA Stop: 03/14/17 21:13 Last Admin: 03/14/17 21:24 Dose: 4 mg NIHSS Scale ([place]) Time Performed: 18:40 - How Severe is the Stoke Baseline Level of Consciousness: 0=Alert LOC to Questions: 0=Both comments correct LOC to commands: 0=Obeys both correctly Best Gaze: 0=Normal Visual: 0=No visual loss Facial: 0=Normal Motor Arm - Left: 0=No drift Motor Arm - Right: 0=No drift Motor Leg - Left: 0=No drift Motor Leg - Right: 0=No drift Limb Ataxia: 0=Absent Sensory: 0=Normal Best Language: 0=No aphasia Dysarthia: 1=Mild to moderate slurring Extinction & Inattention (Neglect): 0=Normal, no object Score: 1 Risk Level: Minor Stroke Risk - Scribe Statement The provider has reviewed the documentation as recorded by the Katie Chao Provider Scribe Attestation: All medical record entries made by the Zeibva were at my direction and personally dictated by me. I have reviewed the chart and agree that the record accurately reflects my personal performance of the history, physical exam, medical decision making, and the department course for this patient. I have also personally directed, reviewed, and agree with the discharge instructions and disposition. Disposition/Present on Arrival - Present on Arrival Any Indicators Present on Arrival: No History of DVT/PE: No History of Uncontrolled Diabetes: No Urinary Catheter: No History of Decub. Ulcer: No History Surgical Site Infection Following: None - Disposition Have Diagnosis and Disposition been Completed?: Yes Diagnosis: Altered mental status Disposition: HOSPITALIZED Disposition Time: 21:20 Patient Plan: Admission, Telemetry Patient Problems: Current Active Problems Problem Status Onset Altered mental status Acute Condition: FAIR
[2017-03-14 19:52] LABS: ADD MANUAL DIFF? NO
[2017-03-14 20:00] LABS: BASO # 0.01 K/mm3 (0.0-2.0); BASO % 0.2 % (0.0-3.0); EOS # 0.1 (0.0-0.7); EOS % 1.3 % (1.5-5.0); GRAN # 3.71 (1.4-6.5); GRAN % 60.7 % (50.0-68.0); HEMATOCRIT 34.8 % (42.0-52.0); LYMPH # 1.7 (1.2-3.4); LYMPH % 28.3 % (22.0-35.0); MEAN CELL VOLUME 96.4 fL (80.0-105.0); MEAN CORPUSCULAR HEMOGLOBIN 31.6 pg (25.0-35.0); MEAN CORPUSCULAR HGB CONC 32.8 g/dl (31.0-37.0); MEAN PLATELET VOLUME 9.9 fl (7.0-11.0); MONO # 0.6 (0.1-0.6); MONO % 9.5 % (1.0-6.0); PLATELET COUNT 277 10^3/uL (120.0-450.0); RED CELL DISTRIBUTION WIDTH 14.6 % (11.5-14.5); WHITE BLOOD COUNT 6.1 10^3/ul (4.5-11.0)
[2017-03-14 20:08] LABS: ALB/GLOB RATIO 1.1 (1.1-1.8); ALKALINE PHOSPHATASE 96 U/L (38-133); ALT/SGPT 36 U/L (7-56); AST/SGOT 33 U/L (15-59); BILIRUBIN,TOTAL 0.7 mg/dL (0.2-1.3); BLOOD UREA NITROGEN 15 mg/dL (7-21); CALCIUM 9.4 mg/dL (8.4-10.5); CARBON DIOXIDE 27 mmol/L (21-33); CHLORIDE 102 mmol/L (98-107); CHOLESTEROL 155 mg/dL (130-200); GFR AFRICAN-AMERICAN > 60; GLUCOSE,RANDOM 71 mg/dL (70-110); LIPASE 160 U/L (23-300); POTASSIUM 4.5 mmol/L (3.6-5.0); SODIUM 138 mmol/L (132-148); TOTAL PROTEIN 7.3 g/dL (5.8-8.3)
[2017-03-14 20:12] LABS: INR 0.99 (0.93-1.08)
[2017-03-14 20:20] LABS: TROPONIN I < 0.01 ng/mL
--- NOTE | 2017-03-14 20:56 | CT ---
EXAM: CT Head Without Intravenous Contrast CLINICAL HISTORY: 71 years old, male; Injury or trauma; Fall; Patient HX: Recent CVA with confusion and r facial droop TECHNIQUE: Axial computed tomography images of the head/brain without intravenous contrast. This CT exam was performed using one or more of the following dose reduction techniques: automated exposure control, adjustment of the mA and/or kV according to patient size, and/or use of iterative reconstruction technique. EXAM DATE/TIME: 03/14/2017 6:52 PM COMPARISON: Prior head CT of 02/18/2017. An MRI of the brain of 02/19/2017 was also briefly reviewed. FINDINGS: BRAIN: Again seen in the left basal ganglia is a round, solid-appearing masslike density with a CT attenuation slightly higher than diaz matter, highly suspicious for mildly hyperdense intracranial mass. This measures 4 x 3.4 cm, and is mildly enlarged in size since the prior CT, at which time it measured 2.8 x 2.6 cm. There has also been interval enlargement of a second intracranial mass, located in the left frontal lobe inferiorly. This is similar in appearance to the larger mass, also mildly hyperdense, and measures 1.9 x 1.7 cm (previously 1.3 x 1.2 cm). There is persistent extensive low density vasogenic edema in the left frontal and temporal lobes, as well as in the left basal ganglia. This edema is again noted to extend into the left midbrain. Overall, the degree of associated vasogenic edema is mildly increased. Associated intracranial mass effect is also mildly increased. There is shift of the midline to the right of up to 1 cm (previously 6 mm). There is persistent effacement of the left lateral ventricle and of the cortical sulci in the left cerebral hemisphere diffusely. No acute hemorrhage seen within the brain. No acute extra-axial fluid collections visualized. VENTRICLES: Ventricles are stable in size, with no evidence of new hydrocephalus. BONES/JOINTS: No acute fractures or other acute bony abnormality noted. SOFT TISSUES: No acute abnormality of the visualized soft tissues is seen. SINUSES: Visualized paranasal sinuses appear clear. MASTOID AIR CELLS: Mastoid air cells appear clear. IMPRESSION: - Compared to head CT of 02/18/2017, there has been interval mild enlargement of the previously seen left basal ganglia and left frontal lobe intracranial masses. The larger mass, in the left basal ganglia, measures 4 cm. Associated vasogenic edema and intracranial are also mildly worsened in the interim, with midline shift to the right of 1 cm now seen. - No evidence of acute intracranial hemorrhage. - See above for remaining findings.
[2017-03-14] MEDS ORDERED: Dexamethasone 4 mg/1 ml IVP STA (21:12)
[2017-03-15] MEDS: Dexamethasone 4 mg/1 ml IVP SCH ×5 (00:41→23:31)
[2017-03-15] MEDS: Albuterol-Ipratrop 3 mg / 0.5 (3 ml) UD IH SCH ×4 (01:03→20:35)
[2017-03-15 04:48] LABS: PH,URINE 8.5 (4.7-8.0); URINE BILIRUBIN NEGATIVE (NEGATIVE); URINE BLOOD NEGATIVE (NEGATIVE); URINE GLUCOSE (UA) NEGATIVE (NEGATIVE); URINE KETONE NEGATIVE (NEGATIVE); URINE LEUKOCYTE ESTERASE NEGATIVE Leu/uL (NEGATIVE); URINE PROTEIN NEGATIVE mg/dL (<30 mg/dL)
[2017-03-15 05:12] LABS: URINE APPEARANCE CLEAR (CLEAR); URINE COLOR YELLOW (YELLOW)
[2017-03-15] MEDS: Insulin Regular 1 UNITS/0.01 ML ML SC SCH ×4 (07:58→22:20)
--- NOTE | 2017-03-15 09:07 | RAD ---
PROCEDURE: CHEST RADIOGRAPH, 1 VIEW HISTORY: confusion COMPARISON: 02/20/2017 FINDINGS: LUNGS: Increased pulmonary vascular congestion PLEURA: No pneumothorax or pleural fluid seen. CARDIOVASCULAR: Enlarged heart. OSSEOUS STRUCTURES: The osseous structures demonstrate degenerative changes. VISUALIZED UPPER ABDOMEN: Upper abdomen is suboptimally evaluated. OTHER FINDINGS: None. IMPRESSION: Increased pulmonary vascular congestion.
[2017-03-15 10:21] LABS: ADD MANUAL DIFF? NO
[2017-03-15] MEDS: Pantoprazole 40 mg EC Tab PO SCH (10:28)
[2017-03-15 10:33] LABS: GRAN # 3.31 (1.4-6.5); GRAN % 83.5 % (50.0-68.0); HEMATOCRIT 32.5 % (42.0-52.0); LYMPH # 0.6 (1.2-3.4); LYMPH % 15.7 % (22.0-35.0); MEAN CORPUSCULAR HEMOGLOBIN 31.6 pg (25.0-35.0); MEAN CORPUSCULAR HGB CONC 33.2 g/dl (31.0-37.0); MEAN PLATELET VOLUME 9.6 fl (7.0-11.0); MONO % 0.8 % (1.0-6.0); PLATELET COUNT 264 10^3/uL (120.0-450.0); RED CELL DISTRIBUTION WIDTH 14.3 % (11.5-14.5)
[2017-03-15 10:36] LABS: BLOOD UREA NITROGEN 12 mg/dL (7-21); CALCIUM 9.4 mg/dL (8.4-10.5); CARBON DIOXIDE 29 mmol/L (21-33); CHLORIDE 101 mmol/L (98-107); GFR AFRICAN-AMERICAN > 60; GLUCOSE,RANDOM 132 mg/dL (70-110); POTASSIUM 4.3 mmol/L (3.6-5.0); SODIUM 139 mmol/L (132-148)
--- NOTE | 2017-03-15 10:36 | CARD ---
APPROVED REPORT EKG Measurement Heart [id number] CO [id number] <Conclusion> Normal sinus rhythm Normal ECG
--- NOTE | 2017-03-15 12:29 | CON ---
DATE: 03/15/2017 CHIEF COMPLAINT: Change in mental status, confusion. 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 The larger mass in the left basal ganglia measuring 4 cm, associated with v asogenic edema and intracranial also mildly worsened in interim, now with a midline shift to 1 cm now seen on the present CAT scan, who came to the hospital with some confusion and slurred speech notice d by the daughter as well as some right facial droop. He has residual right-sided weakness from prio r -sided CVA and left-sided brain mass. His CT head showed, in compared to CAT scan of 7, there is interval mild enlargement of the previous left basal ganglia, left frontal lobe intracran ial mass. The larger mass in the left basal ganglia measuring 4 cm, associated with vasogenic edema intracranial, also mildly worse in the interim with midline shift to the right of 1 cm. 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 Currently, he is mildly confused, but follows simple comma nds. He has residual right-sided weakness. An MRI of the brain has been ordered as well as a neuros urgical consult. PAST MEDICAL HISTORY: Aspergillosis, cavitary lesion of the lung, history of left basal ganglia infa rct in the [place] radiata with residual right-sided weakness, history of hyperlipidemia, hypertension , non-insulin dependent diabetes mellitus, last A1c is 7.5. REVIEW OF SYSTEMS: A 14-point is negative except for above in the HPI. SOCIAL HISTORY: History of smoking, is a former smoker, but has quit. ALLERGIES: No known drug allergies. MEDICATIONS: Reviewed via nurse's reconciliation sheet. PHYSICAL EXAMINATION: VITAL SIGNS: Temperature of 97.3, pulse rate of 82, blood pressure 123/63, respiratory rate of 20, o xygen saturation 98% via room air. GENERAL: The patient is sitting up in bed, no acute distress. HEENT: Atraumatic, normocephalic. PERRLA. Extraocular muscles intact. NECK: Supple, no JVD, no adenopathy noted. LUNGS: Clear to auscultation. No adventitious sounds. HEART: S1, S2, normal rate and rhythm. No murmurs, rubs, or gallops. ABDOMEN: Soft, nontender, nondistended. Bowel sounds present. EXTREMITIES: No clubbing, no cyanosis. Peripheral pulses 2+ felt bilaterally. NEUROLOGIC: The patient is alert, oriented to person and place. Recall after 5 minutes is 0/3. Poo r attention span. Slowed thought process. Speech is mildly dysarthric, but no aphasia noted. Crani al nerves II-XII are intact, except for some mild right facial droop. MOTOR: Has right upper and right lower extremity 4+ to 5- out of 5 right-sided weakness, which is hi s baseline from prior CVA as well as left basal ganglia mass. Left upper and lower extremities are i ntact. Toes upgoing bilaterally. SENSORY: Withdraws and localizes to noxious stimulus. Light touch is decreased up to the calves deborah aterally and decreased vibration at the toes. DEEP TENDON REFLEXES: 2+ throughout and 1 at the ankles. COORDINATION: [id number]-[id number]-asoh intact, but difficult on the right due to mild residual right-sided wea kness. LABORATORIES: Sodium 139, potassium 4.3, chloride 101, carbon dioxide 29, BUN of 12, creatinine 0.6, random glucose 132. ASSESSMENT AND PLAN: This is a 71-year-old man with past medical history of hypertension, hyperlipid emia, non-insulin dependent diabetes mellitus with a history of left basal ganglia infarct in the lef t [place] radiata with residual right-sided weakness, history of left basal ganglia mass, with a recen t aspergillosis of the lung with cavitary lesions, who presents to the hospital because he was noted to be confused as per daughter. Also, had some slurred speech and some right facial droop and fell f orward out of his wheelchair. He underwent a CAT scan of the head, which showed, compared to CAT sca n of 02/18/2017, there was a mild interval enlargement of the previously seen left basal ganglia and l eft frontal lobe intracranial mass. The larger mass in the left basal ganglia measured 4 cm, associa ama with vasogenic edema and intracranial also mildly worsened in the interim with midline shift to t he right of 1 cm now, no acute hemorrhage. Currently, the patient is on Decadron 4 mg IV q. 6. At t his time, I recommend: 1. An MRI of the brain stat with and without contrast. 2. Neurosurgical consult for possible biopsy of the mass and further evaluation for midline shift. 3. Monitor electrolytes and correct accordingly. 4. Lipitor and aspirin 81 mg for stroke prevention. 5. PT, OT evaluation and speech therapy as well as swallow. 6. Continue with current present medical management, keep blood pressure between 120 and 130 mmHg. Thank you for this consult. Akshat Hernandez MD cc: [id number] TT: 03/15/2017 12:28:39 Confirmation # [id number] Dictation # [id number]
[2017-03-15] MEDS ORDERED: Gadodiamide 287 MG/ML VIAL (15ML) IV ONE (12:59)
--- NOTE | 2017-03-15 15:45 | MRI ---
PROCEDURE: MRI BRAIN WITH AND WITHOUT CONTRAST HISTORY: Comparison study. COMPARISON: MRI from 02/19/2017. CT from 03/14/2017 TECHNIQUE: Multiplanar, multisequence MR images of the brain were obtained with and without intravenous contrast enhancement. FINDINGS: HEMORRHAGE: None significant. DWI: Mild restricted diffusion involving the left basal ganglia extending into the right thalamus inferiorly and right coronal radiata superiorly. BRAIN PARENCHYMA: Re- demonstration of left basal ganglial mass. Additional mass seen in the anterior left frontal lobe white matter extending into the peripheral cortex. Postcontrast T1 weighted images demonstrate avid enhancement of both these masses. T2/STIR weighted images demonstrate extensive vasogenic edema involving the left frontal/ parietal and temporal lobes. There is near complete effacement of the left lateral ventricle. There is extensive mass-effect on the surrounding sulci with near complete effacement. There is approximately 8-9 millimeter midline shift to the right. In comparison to prior MRI of the brain from 02/19/2017, both these masses increased in size. Currently these masses measure approximately 3.1 x 3 x 3.1 centimeters and 10 x 1.6 x 1.6 centimeter respectively. Vasogenic edema extends into the splenium of the corpus callosum and demonstrates extension into the midbrain and hugo through the cerebral peduncles. Additional multifocal T2 signal abnormality seen in the white matter of the right cerebral hemisphere which do not demonstrate evidence of enhancement on postcontrast images. These could represent small vessel ischemic changes. ENHANCEMENT: As above. VENTRICLES: As above. CRANIUM: Unremarkable. ORBITS: Grossly unremarkable. PARANASAL SINUSES/MASTOIDS: Clear VASCULAR SYSTEM: Skull base flow voids intact. OTHER FINDINGS: None . IMPRESSION: Enhancing masses involving the left basal ganglia in the posterior left frontal lobe with associated vasogenic edema extending into the left frontal, parietal and temporal lobe white matter. Possible extension of the posterior left frontal lobe enhancing mass into the peripheral cortex. These masses have increased in size since the prior MRI from 02/19/2017. These findings are suspicious for metastatic disease.
--- NOTE | 2017-03-15 19:37 | HP ---
HISTORY OF PRESENT ILLNESS: The patient is a 71-year-old male recently discharged from the hospital when he was diagnosed with basal ganglion infarction and right-sided weakness. He presented to the ED again with right- sided weakness and right-sided facial droop. CAT scan of the head showed increase in basal ganglia mass and increase in frontal lobe mass. Facial droop on right side is the same as before. He fell from the wheelchair yesterday while in sitting position. MRI of the head was ordered stat that showed increase in basal ganglia mass to about 10 cm, increase in left frontal mass also. He had lung biopsy done on the last admission which did not show cancer. He has bilateral cavitary lesions in both lungs, suspicious for cancer. No fever. No cough with expectoration. He has diabetes mellitus type 2, was controlled before prior to starting steroids. He also has hypertension. Blood pressure currently controlled. PAST MEDICAL HISTORY: Diabetes mellitus type 2, left-sided weakness, unsteady gait, frequent falls, hypertension. PERSONAL HISTORY: Smokes 1 pack a day. quit since December. SOCIAL HISTORY: Lives at home. FAMILY HISTORY: Noncontributory. No positive history in mother or father. SURGICAL HISTORY: None. ALLERGIES: No known drug allergies. HOME MEDICATIONS: Protonix 40 mg daily, DuoNeb 3 mL q. 6 hours p.r.n., aspirin 81 mg daily, metformin 500 mg p.o. b.i.d., potassium chloride 10 mEq p.o. daily , Colace daily. REVIEW OF SYSTEMS: As per HPI. Rest of 12-point review of systems reviewed and negative. PHYSICAL EXAMINATION: GENERAL: Comfortable in bed, in no acute distress. VITAL SIGNS: Stable. Temperature 98.7, heart rate 60, respiratory rate 16 per minute, blood pressure 120/70, pulse ox is 99% on room air. HEAD: Atraumatic. HEENT: Normal. Oral mucosa moist. NECK: No lymphadenopathy. CHEST: Air entry present, equal bilateral. No added sounds. CARDIOVASCULAR: Within normal limits. ABDOMEN: Soft, nontender, obese. EXTREMITIES: No edema. NEUROLOGIC: Right-sided facial droop present, right-sided weakness. SPINE: Nontender. SKIN: Intact. LYMPHADENOPATHY: None. IMAGING: CAT scan of the head done on 02/18/2017. There is interval enlargement of the left basal ganglia mass, enlargement of the left frontal lobe mass, vasogenic edema present. Midline shift of 1 cm seen. LABORATORY DATA: White count 6.1, hemoglobin 11.4, hematocrit 38.4, platelet count 277. Sodium 138, potassium 4.5, BUN 15, creatinine 0.7, glucose 71. CAT scan of the chest: Bilateral cavitary lesion in both lungs. ASSESSMENT: 1. Large left basal ganglion mass and large left frontal lobe mass, vasogenic edema. 2. Midline shift of 1 cm. 3. Diabetes mellitus type 2. 4. Hypertension. 5. Chronic obstructive pulmonary disease. PLAN: Neurology consultation, Dr. Hernandez, requested. MRI of the head stat requested. MRI showed enlarging lesion 10 cm basal ganglia mass, 4 cm left frontal lobe mass. Decadron 4 mg IV q. 6 hours scheduled for vasogenic edema. Neurosurgical consultation with Dr. Villafana requested. We will start Keppra 500 mg p.o. b.i.d. for seizure prophylaxis. Metformin 500 mg p.o. b.i.d. to continue, insulin medium sliding scale coverage as steroid will give rise to uncontrolled sugars. We will give DuoNeb 3 mL q. 6 hours p.r.n. Protonix 40 mg daily for gastric prophylaxis because of high dose steroids. Labs reviewed. Renal functions are within normal limits. Pathology of lung mass negative for cancer. Discussed with Dr. Hernandez. He needs to be shifted to tertiary care surgical center for biopsy of the brain mass. Dr. Hernandez contacted Dr. Villafana. Discussed with the patient, discussed the pathology results with the patient. Discussed with the staff nurse. Jing Swartz MD cc: [id number] TT: 03/15/2017 19:36:30 sd addendum : discussed with Dr. Soler. Discussed with DR. Lubin covering for Dr. Borrero, Neurosurgery. Patient will be transferred to [facility]surgery for further management and treatment. Dr. Hernandez co-ordinated the transfer with neurosurgery team. contacted by Dr. Soler. [facility]
--- NOTE | 2017-03-15 21:38 | CP.PCM.PCO ---
Physician Communication Note - Physician Communication Note Physician Communication Note: pt. will be transferred to [facility]. spoke to , she agreed.
[2017-03-16] MEDS: Albuterol-Ipratrop 3 mg / 0.5 (3 ml) UD IH SCH ×4 (02:00→19:39)
[2017-03-16 05:32] VITALS: O2SAT 98
[2017-03-16] MEDS: Dexamethasone 4 mg/1 ml IVP SCH ×3 (05:51→17:25)
[2017-03-16] MEDS ORDERED: Iodixanol 320 MG/ML 200 ML BOTTLE IV ONE (06:50)
[2017-03-16] MEDS ORDERED: Nitroglycerin 50mg in D5W 0 MG/0 ML BOTTLE IV ONE (06:50)
[2017-03-16] MEDS ORDERED: Lidocaine 2% Inj (20ml) ONE (06:50)
[2017-03-16] MEDS ORDERED: Iodixanol 320 MG/ML 100 ML BOTTLE IV ONE (06:50)
[2017-03-16] MEDS ORDERED: Phenylephrine 10 mg/ml Inj ONE (06:50)
[2017-03-16] MEDS ORDERED: Iohexol 350mgl/ml 50 ML ONE (06:50)
[2017-03-16] MEDS: Insulin Regular 1 UNITS/0.01 ML ML SC SCH ×3 (09:44→17:23)
[2017-03-16] MEDS: Pantoprazole 40 mg EC Tab PO SCH (09:44)
--- NOTE | 2017-03-16 10:47 | CP.PCM.PN ---
Subjective - Date & Time of Evaluation Date of Evaluation: 03/16/17 Time of Evaluation: 10:43 - Subjective Subjective: full consult done last admission (02/20/17 Has large L BG mass with smaller L frontal mass at sylvian fissure He was readmitted for change in MS transient slurred speach and r sided weakness Repeat MR shows increase in mass size Had lung bx last adm Asprigilosis He is a/a/ox3 Pupils equal EOM full mild R pronator drift Discussed Bx with pt and would need to transfer to [facility] for surgery then would have pt return here for follow-up tx after acute post po period Pt and uncertain of wishes at this time Explained risks include neurologic deficts such as sppech, motor coma, , bleeding, hemmorhage They understand and will make a decision Objective - Vital Signs/Intake and Output Vital Signs (last 24 hours): Temp Pulse Resp BP Pulse Ox 98.3 F 71 20 118/66 98 03/16/17 05:31 03/16/17 06:00 03/16/17 05:31 03/16/17 05:31 03/16/17 05:31 Intake and Output: 03/16/17 03/16/17 06:59 18:59 Intake Total 120 Output Total 0 Balance 120 - Medications Medications: Current Medications Acetaminophen (Tylenol 325mg Tab) 650 mg PO Q4 PRN PRN Reason: Pain, Mild (1-3) Albuterol/Ipratropium (Duoneb 3 Mg/0.5 Mg (3 Ml) Ud) 3 ml IH [id number] [facility] Last Admin: 03/16/17 07:38 Dose: 3 ml Atorvastatin Calcium (Lipitor) 20 mg PO HS [facility] Last Admin: 03/15/17 22:21 Dose: 20 mg Dexamethasone (Decadron Inj) 4 mg IVP Q6 [facility] Last Admin: 03/16/17 05:51 Dose: 4 mg Docusate Sodium (Colace) 200 mg PO HS [facility] Last Admin: 03/15/17 23:30 Dose: 200 mg Insulin Human Regular (Humulin R) 0 units SC ACHS [facility] PRN Reason: Protocol Last Admin: 03/16/17 09:44 Dose: 1 units Levetiracetam (Keppra) 500 mg PO BID [facility] Last Admin: 03/16/17 09:44 Dose: 500 mg Metformin HCl (Glucophage) 500 mg PO BID [facility] Last Admin: 03/16/17 09:44 Dose: 500 mg Pantoprazole Sodium (Protonix Ec Tab) 40 mg PO DAILY [facility] Last Admin: 03/16/17 09:44 Dose: 40 mg Voriconazole (Vfend 200 Mg Tab) 200 mg PO Q12 [facility] PRN Reason: Protocol Last Admin: 03/16/17 09:44 Dose: 200 mg - Labs Labs: 03/15/17 10:00 03/15/17 10:00 PT 10.7 Seconds (9.9-11.8) 03/14/17 19:35 INR 0.99 (0.93-1.08) 03/14/17 19:35 APTT 25.0 Seconds (23.7-30.8) 03/14/17 19:35
--- NOTE | 2017-03-16 13:33 | PN ---
DATE: 03/16/2017 SUBJECTIVE: The patient is a 71-year-old, seen and examined lying in bed. Does not look in any dist ress. No complaint of nausea, vomiting, no diarrhea. Eating and tolerating. No headache, no dizzin ess. PHYSICAL EXAMINATION: VITAL SIGNS: He is afebrile, pulse 81, respirations 20, blood pressure 112/70. LUNGS: Bilateral fair airflow, no rhonchi or crackle. HEART: S1, S2 audible. ABDOMEN: Soft, nontender, no rebound, no guarding. NEUROLOGIC: He is awake and alert, communicative. BILATERAL LEGS: No edema, no focal deficits. LABORATORY EXAMINATION: WBC is 4.0, hemoglobin 10.8, hematocrit 32.5, platelet of 264. Chemistry: Sodium 139, potassium 4.3, chloride 101, CO2 29, BUN 12, creatinine 0.6, blood sugar 132. MRI of the brain done yesterday shows enhancing mass involving the left basal ganglia in the posterio r left frontal lobe with associated vasogenic edema extending into the left frontoparietal and tempor al lobe white matter, possibly extension of the posterior left frontal lobe enhancing mass in the per ipheral cortex that has increased in size as compared to MRI on 02/19/2017. ASSESSMENT: 1. Status post fall. 2. Left basal ganglia mass. 3. Bilateral cavitary pulmonary lesions. 4. Hypertension. 5. Hyperlipidemia. PLAN: At this point, discussed with Dr. Parmar, discussed with Dr. Villafana. The patient needs biopsy of brain lesion and maybe needs repeat biopsy of lung mass. So arrangement is being made. Dr Ruddy Hernandez arranged for patient's transfer to [facility], awaiting transfer. The patient's i s at the bedside. She was made aware. In the meantime, will continue patient on voriconazole. Will continue her on DVT prophylaxis. I will also discuss with Dr. Parmar. The patient's seems to agree with the plan, so will proceed for transferring patient to [facility]. Turner Soler MD cc: [id number] TT: 03/16/2017 13:32:26 Confirmation # [id number] Dictation # [id number] mn
--- NOTE | 2017-03-16 15:42 | CP.PCM.CON ---
History of Present Illness - History of Present Illness History of Present Illness: 71 year old male with PMH of hepatitis C, DM, history of brain tumor (which apparently resolved without specific treatment), obesity with BMI 32 was recently admitted in [facility] for the lung lesions. Biopsy was done then and it was noted to have Aspergillus. Patient is currently on Voriconazole for pulmonary Aspergillosis. The patient also had brain lesions noted at the time and outpatient work up was being planned for the lesions. He was sent to a rehab center. He was doing well there until he was noted to have had a fall in the facility. He was also noted to have confusion and slurred speech and he was brought here for further evaluation. On imaging of the brain, the lesions have increased in size and NEuro and Neurosurgery have been called to further evaluate. Infectious diseases consult is requested to continue his Pulmonary Aspergillosis management. Currently the patient is comfortable in bed , not in distress. He has no fever or chills, no currently no headache, still feels weak, no nausea or vomiting, no dysuria, no diarrhea, no chest pain, no SOB, no abdominal pain, no sore throat, no blurring of vision. Review of Systems - Review of Systems All systems: reviewed and no additional remarkable complaints except (as per HPI ) Past Patient History - Infectious Disease Hx of Infectious Diseases: None - Past Medical History & Family History Past Medical History?: Yes - Past Social History Smoking Status: Former Smoker - CARDIAC Hx Cardiac Disorders: Yes Hx Hypercholesterolemia: Yes - PULMONARY Hx Respiratory Disorders: No - NEUROLOGICAL Hx Neurological Disorder: Yes HX Cerebrovascular Accident: Yes - HEENT Hx HEENT Problems: No - RENAL Hx Chronic Kidney Disease: No - ENDOCRINE/METABOLIC Hx Endocrine Disorders: No - HEMATOLOGICAL/ONCOLOGICAL Hx Blood Disorders: Yes Hx Hepatitis C: Yes - INTEGUMENTARY Hx Dermatological Problems: No - MUSCULOSKELETAL/RHEUMATOLOGICAL Hx Falls: Yes - GASTROINTESTINAL Hx Gastrointestinal Disorders: No - GENITOURINARY/GYNECOLOGICAL Hx Genitourinary Disorders: No - PSYCHIATRIC Hx Substance Use: No - SURGICAL HISTORY Hx Surgeries: No - ANESTHESIA Hx Anesthesia Reactions: No Hx Malignant Hyperthermia: No Meds Allergies/Adverse Reactions: Allergies Allergy/AdvReac Type Severity Reaction Status Date / Time No Known Allergies Allergy Verified 01/14/17 23:09 - Medications Medications: Current Medications Acetaminophen (Tylenol 325mg Tab) 650 mg PO Q4 PRN PRN Reason: Pain, Mild (1-3) Albuterol/Ipratropium (Duoneb 3 Mg/0.5 Mg (3 Ml) Ud) 3 ml IH Q6H [facility] Last Admin: 03/15/17 20:35 Dose: 3 ml Atorvastatin Calcium (Lipitor) 20 mg PO HS [facility] Last Admin: 03/15/17 22:21 Dose: 20 mg Dexamethasone (Decadron Inj) 4 mg IVP Q6 [facility] Last Admin: 03/16/17 05:51 Dose: 4 mg Docusate Sodium (Colace) 200 mg PO HS [facility] Last Admin: 03/15/17 23:30 Dose: 200 mg Insulin Human Regular (Humulin R) 0 units SC ACHS [facility] PRN Reason: Protocol Last Admin: 03/15/17 22:20 Dose: Not Given Levetiracetam (Keppra) 500 mg PO BID [facility] Last Admin: 03/15/17 18:47 Dose: 500 mg Metformin HCl (Glucophage) 500 mg PO BID [facility] Last Admin: 03/15/17 17:41 Dose: 500 mg Pantoprazole Sodium (Protonix Ec Tab) 40 mg PO DAILY [facility] Last Admin: 03/15/17 10:28 Dose: 40 mg Voriconazole (Vfend 200 Mg Tab) 200 mg PO Q12 [facility] PRN Reason: Protocol Last Admin: 03/15/17 22:25 Dose: 200 mg Physical Exam - Constitutional Appears: Non-toxic, No Acute Distress - Head Exam Head Exam: NORMAL INSPECTION - ENT Exam ENT Exam: Mucous Membranes Moist - Neck Exam Neck exam: Negative for: Lymphadenopathy, Meningismus - Respiratory Exam Respiratory Exam: Decreased Breath Sounds - Cardiovascular Exam Cardiovascular Exam: +S1, +S2 - GI/Abdominal Exam GI & Abdominal Exam: Soft. absent: Tenderness Results - Vital Signs Recent Vital Signs: Last Vital Signs Temp 98.3 F 03/16/17 05:31 Pulse 71 03/16/17 05:31 Resp 20 03/16/17 05:31 BP 118/66 03/16/17 05:31 Pulse Ox 98 03/16/17 05:31 - Labs Result Diagrams: 03/15/17 10:00 03/15/17 10:00 Labs: Laboratory Results - last 24 hr 03/15/17 03/15/17 10:00 10:00 WBC 4.0 L D RBC 3.42 L Hgb 10.8 L Hct 32.5 L MCV 95.0 MCH 31.6 MCHC 33.2 RDW 14.3 Plt Count 264 MPV 9.6 Gran % 83.5 H Lymph % (Auto) 15.7 L [place] % (Auto) 0.8 L Eos % (Auto) 0.0 L Baso % (Auto) 0.0 Gran # 3.31 Lymph # 0.6 L [place] # 0.0 L Eos # 0.0 Baso # 0.00 Sodium 139 Potassium 4.3 Chloride 101 Carbon Dioxide 29 Anion Gap 13 BUN 12 Creatinine 0.6 Est GFR ( Amer) > 60 Est GFR (Non-Af Amer) > 60 Random Glucose 132 H Calcium 9.4 Assessment & Plan - Assessment and Plan (Free Text) Plan: Assessment Multiple small cavitary lesions in the lower lobes of both lungs - probably pulmonary Aspergillosis as noted on pathology of biopsy sample Increase in size of brain lesions, R/O malignancy Subacute left basal ganglia CVA hepatitis C DM history of brain tumor (which apparently resolved without specific treatment) obesity with BMI 32 Plan continue Voriconazole - the patient should be treated for at least 2-3 months with weekly CBC, CMP Discussed with Dr. Soler Follow up recommendations of Neuro and Neurosurgery - there is plan to transfer patient to a tertiary care facility Will monitor clinically while the patient is in the hospital
[2017-03-16 18:04] VITALS: BP 117/74; RESP 18; TEMP 97.1
--- NOTE | 2017-03-16 18:33 | PN ---
DATE: 03/16/2017 CHIEF COMPLAINT: Follow up for change in mental status. SUBJECTIVE: The patient is seen and examined at bedside. MRI of the brain showed an enhancing mass involving the left basal ganglion extending into the left frontoparietal and temporal lobes white mat ter which has increased in size 02/19/2017. The patient still is clinically stable, has residual rig ht-sided weakness and following simple commands. He is awaiting transfer to [facility] for fu rther neuro surgical management. 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 REVIEW OF SYSTEMS: A 14-point review of systems is negative except for the HPI. SOCIAL HISTORY: History of smoking, former smoker, has quit. ALLERGIES: No known drug allergies. CURRENT MEDICATIONS: Reviewed via nurse's reconciliation sheet. PHYSICAL EXAMINATION: VITAL SIGNS: Temperature 98, pulse rate of 81, blood pressure 112/70, respiratory rate 20. GENERAL: The patient is sitting up in bed in no acute distress. HEENT: Atraumatic, normocephalic. PERRLA. Extraocular muscles intact. NECK: Supple, no JVD, no adenopathy noted. LUNGS: Clear to auscultation. No adventitious sounds. HEART: S1, S2, normal rate and rhythm. No murmurs, rubs, or gallops. ABDOMEN: Soft, nontender, nondistended. Bowel sounds are present. EXTREMITIES: No clubbing, no cyanosis. Peripheral pulses 2+ felt bilaterally. NEUROLOGIC: The patient is alert, oriented to person and place, recall after 5 minutes is 0/3. Poor attention span, slow thought process. Speech is mildly dysarthric, but no aphasia noted. Cranial n erves II-XII are intact except for mild right facial droop. MOTOR: The patient has right upper right upper and lower extremity weakness, 4+/5 to 5-/5 which is b aseline from prior CVA as well as left basal ganglia mass. The left upper and lower extremity are in tact. Toes are downgoing bilaterally. SENSORY: Withdraws to localized noxious stimulus. Light touch is decreased up to the calves bilater ally and decreased vibration of the toes. DTRs are 2+ throughout, 1 at the ankles. COORDINATION: Yokpuf-tn-njis intact, but difficult on the right due to mild residual right-sided wea kness. LABORATORY DATA: Sodium is 139, potassium 4.3, chloride 101, carbon dioxide 29, BUN of 12, creatinin e 0.6, random glucose 132. ASSESSMENT AND PLAN: 1. This is a 71-year-old man with past medical history of hypertension, hyperlipidemia, non-insulin- dependent diabetes mellitus with a history of left ganglia infarct in the left lincoln radiata with re sidual right-sided weakness, history of left basal ganglia mass with recent history of respiratory ac idosis of the lung with cavitary lesions, who presented to the hospital and noted to be confused per the daughter and some worsening right facial droop and slurred speech. The patient fell out of the w heelchair. He underwent an MRI of the brain showing enhancing mass along the left basal ganglia in t he posterior left frontal lobe associated with vasogenic edema extending into the left parietal and f rontal and temporal white matter which is a change in terms of increasing size since prior MRI of . He is currently on Decadron 4 mg IV q. 6. His worsening presentation is caused likely from the large mass in the left basal ganglia area. I recommend that he is going to be transferred to [facility] for further neurosurgical management. 2. Monitor his electrolytes concurrently. 3. Continue with aspirin 81 mg, Lipitor for stroke prevention and will need PT and OT as per Lyle mehta and keep his blood pressure between 120-130 mmHg. Thank you for this followup. Akshat Hernandez MD cc: [id number] TT: 03/16/2017 18:32:30 Confirmation # [id number] Dictation # [id number] mn
[2017-03-16 19:05] VITALS: PULSE 93
--- NOTE | 2017-03-17 00:12 | CON ---
DATE: 03/16/2017 LOCATION: The patient is in room 263, bed 2. 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 The patient was tr eated empirically with antibiotics and had been sent to rehabilitation to complete a course of the an tibiotics and, while in the rehabilitation, patient's family had noticed that he had progressively wo rsened and he was readmitted to [facility]. Family had noticed that he had become mildly confused. HISTORY OF PRESENT ILLNESS: When he was in the wheelchair and he leaned forward, he fell to the grou nd, hit his head, and the patient was brought to the Emergency Room and a CAT scan of the head showed a left basal ganglia and left frontal intracranial mass. A larger mass in the left basal ganglia me asured 4 cm, associated with vasogenic edema and, also, now with a midline shift of 1 cm seen on the CAT scan. The patient, in the ER, was noted to be confused and slurred speech as noticed by the doct or with the daughter with some right facial droop. The patient has some residual right-sided weaknes s from the previous right-sided CVA and the left-sided brain mass. His CAT scan had shown progressio n and he had his MRI that also shows progression with the multiple lesions that enhance on the post-c ontrast images. Currently, the patient is mildly confused, but follows simple commands. Still resid ual right-sided weakness. PAST MEDICAL HISTORY: Significant for the fact that he has a diagnosis of Aspergillus based on CT-gu ided biopsy of a cavitary lesion, left lower lobe, history of basal ganglia infarct in the lincoln rad iata with a slight residual right-sided weakness, history of hyperlipidemia, hypertension, non-insuli n diabetes mellitus, with an A1c of 7.5. REVIEW OF SYSTEMS: A 14-point review of systems negative except for what is mentioned in the HPI. SOCIAL HISTORY: History of smoking and history of heavy smoking for more than 30 pack years, which h e quit. History of drinking as well. ALLERGIES: No known allergies. MEDICATIONS: The patient's medications were reviewed as stated on the nurse's notes. PHYSICAL EXAMINATION: GENERAL: The patient is examined in bed. VITAL SIGNS: T-max is 98.4, pulse is 82, blood pressure is 123/63, respirations 20, O2 sat 96% on ro om air. GENERAL: The patient is sitting up in bed in no acute distress. He is able to recognize me and ment ioned my name. HEENT: Head is normocephalic, atraumatic. Pupils are equally reactive to light and accommodation. Examination of the oropharynx reveals no oropharyngeal lesions. NECK: Supple. There is no adenopathy. LUNGS: Clear to percussion and auscultation. HEART: Reveals S1 and S2 to be normal. No gallop or murmur is heard. ABDOMEN: Soft, nondistended. Bowel sounds are present. No masses per se are felt. There is no marcia ound, rigidity or guarding noted. EXTREMITIES: Reveals no cyanosis, clubbing or edema. Peripheral pulses are 2+ bilaterally. NEUROLOGIC: The patient is alert and oriented to place and person. Poor attention span, slowed thou ght process. Speech is mildly dysarthric. The patient has right upper and right lower extremity 4/5 weakness related to his prior CVA. Left upper and left lower extremities are intact. Toes are upgo ing. LABORATORY DATA: Reveals a sodium of 139, K is 4.3, chloride 101, CO2 29, BUN of 12, creatinine 0.6, random sugar of 132. CBC is unchanged. ASSESSMENT, NOTES, AND PLAN: A 71-year-old male with a past medical history of hypertension, hyperli pidemia, non-insulin diabetes mellitus, history of left basal ganglia infarct in the left lincoln radi sid with residual right-sided weakness and now has a left basilar ganglia mass with recent Aspergillu s in the lung with cavitary lesions and now presents to the hospital because of confusion. He also f ell from the wheelchair and hit his head. He underwent a CAT scan of the head, which, compared to CAT scan of 02/18, shows mild enlargement of the previously seen masses, left basal ganglia in the left frontal lobe, a larger mass in the left basal ganglia measures 4 cm, associated with vasogenic e brittany and midline shift as well to the right. Currently, the patient is on Decadron 4 mg IV q. 6 hour s. Neurosurgical consultation was obtained. Monitor electrolytes and correct accordingly. Lipitor and aspirin have been added to the regimen. The patient is being assessed for transfer to [facility] where he could probably get a CT directed biopsy of the brain. That would have to be done by the neurosurgeon. Biopsy would give us enough clue as to which direction we should to make mendez re that we are not dealing with metastatic lung versus primary [employer] lymphoma. Continue all the other medications as previously outlined. We will follow the patient with you and make appropriate recomme ndations. Once the patient gets to [facility], I will speak to the attending there as well. I spoke t o Dr. Soler, his primary medical doctor, and also spoke in detail to the patient's today. Time spent: More than 45 minutes. Carolyn Parmar MD cc: [id number] TT: 03/17/2017 00:12:21 Confirmation # [id number] Dictation # [id number] mn
== END 2017-03-16 19:45 | disposition short-term general hospital (02) | DRG 70 ==
LOC: ED 18:30 → ERH 21:20 → 2RNO 03-15 00:31
PROVIDERS: ADMIT Internal Medicine Medical Oncology; ATTEND Internal Medicine
PROC: 3E0F7GC Introduction of Other Therapeutic Substance into Respiratory Tract, Via Natural or Artificial Opening (ICD-10-PCS; principal; 2017-03-15)
DX: G93.89 Other specified disorders of brain (principal); G93.6 Cerebral edema; B44.1 Other pulmonary aspergillosis; I69.351 Hemiplegia and hemiparesis following cerebral infarction affecting right dominant side; R29.810 Facial weakness; R47.81 Slurred speech; J44.9 Chronic obstructive pulmonary disease, unspecified; E11.9 Type 2 diabetes mellitus without complications; I10 Essential (primary) hypertension; R26.81 Unsteadiness on feet; E78.5 Hyperlipidemia, unspecified; B19.20 Unspecified viral hepatitis C without hepatic coma; R29.6 Repeated falls; E66.9 Obesity, unspecified; Z68.32 Body mass index [BMI] 32.0-32.9, adult; Z79.84 Long term (current) use of oral hypoglycemic drugs; Z87.891 Personal history of nicotine dependence

== ENCOUNTER 2017-08-18 15:01 | Observation (INO) | payer MEDICARE ==
[2017-08-18 15:17] VITALS: BMI 35.2
--- NOTE | 2017-08-18 15:52 | ED PDOC ---
Arrival/HPI - General Time Seen by Provider: 08/18/17 15:08 Historian: Patient, Spouse - History of Present Illness Narrative History of Present Illness (Text): 08/18/17 15:45 Alex Macario is a 71 year old male, with a history of hepatitis C, diabetes and brain neoplasm , presents to the emergency department c/o VILLATORO and left lower leg weakness since yesterday morning. Patient described VILLATORO as achy, located frontal area. Patient's noted urinary frequency, and occasional cough. Patient denies fever, sob, cp, abdominal pain, dysuria, hematuria, rectal bleeding, recent trauma, or recent illness. Patient's noted patient was hospitalized for near 2 weeks, receiving chemotherapy, and d/c home 11 days ago. stated patient has been grabbing on the wall for walking since yesterday morning. Time/Duration: Other (see hpi) Context: Home Past Medical History - Provider Review Nursing Documentation Reviewed: Yes - Infectious Disease Hx of Infectious Diseases: None - Cardiac Hx Cardiac Disorders: Yes - Pulmonary Hx Respiratory Disorders: No - Neurological Hx Neurological Disorder: Yes HX Cerebrovascular Accident: Yes - HEENT Hx HEENT Disorder: No - Renal Hx Renal Disorder: No - Endocrine/Metabolic Hx Endocrine Disorders: No - Hematological/Oncological Hx Blood Disorders: Yes Hx Hepatitis C: Yes - Integumentary Hx Dermatological Disorder: No - Musculoskeletal/Rheumatological Hx Falls: Yes - Gastrointestinal Hx Gastrointestinal Disorders: No - Genitourinary/Gynecological Hx Genitourinary Disorders: No - Psychiatric Hx Substance Use: No - Anesthesia Hx Anesthesia Reactions: No Hx Malignant Hyperthermia: No Family/Social History - Physician Review Nursing Documentation Reviewed: Yes Family/Social History: Other (non contributory) Smoking Status: Former Smoker Hx Alcohol Use: No Hx Substance Use: No Allergies/Home Meds Allergies/Adverse Reactions: Allergies No Known Allergies Allergy (Verified 01/14/17 23:09) Home Medications: Home Meds Medication Instructions Recorded Confirmed Pantoprazole Sodium [Protonix] 40 mg PO DAILY 01/07/17 03/14/17 Albuterol/Ipratropium [Duoneb 3 3 ml IH Q6H 01/15/17 03/14/17 mg/0.5 mg (3 ml) UD] Aspirin [Ecotrin] 81 mg PO DAILY 01/15/17 03/14/17 Metformin HCl [Glucophage] 500 mg PO BID 01/15/17 03/14/17 Docusate [Colace] 2 cap PO HS 02/05/17 03/14/17 Potassium Chloride [K-Tab ER] 10 meq PO DAILY 02/05/17 03/14/17 Review of Systems - Review of Systems Constitutional: Normal. absent: Fatigue, Weight Change, Fevers Eyes: Normal ENT: Normal. absent: Sore Throat, Rhinorrhea Respiratory: Cough. absent: SOB, Sputum, Wheezing Cardiovascular: Normal. absent: Chest Pain, Palpitations, Edema, Calf Pain, PARRA , Orthopnea, Syncope Gastrointestinal: Normal. absent: Abdominal Pain, Nausea, Vomiting Genitourinary Male: Frequency. absent: Dysuria, Hematuria Musculoskeletal: Normal. absent: Back Pain, Neck Pain Skin: Normal. absent: Rash, Pruritis Neurological: Headache, Focal Weakness. absent: Dizziness, Gait Changes, Speech Changes, Facial Droop, Disequilibrium Endocrine: Normal Hemo/Lymphatic: Normal Psychiatric: Normal Physical Exam Vital Signs Temp Pulse Resp BP Pulse Ox 08/18/17 18:00 71 18 121/69 97 08/18/17 15:16 98.2 F 74 18 123/70 97 Temperature: Afebrile Blood Pressure: Normal Pulse: Regular Respiratory Rate: Normal Appearance: Positive for: Well-Appearing, Non-Toxic, Comfortable Pain Distress: None Mental Status: Positive for: Alert and Oriented X 3 - Systems Exam Head: Present: Atraumatic, Normocephalic Pupils: Present: PERRL Extroacular Muscles: Present: EOMI Conjunctiva: Present: Normal Mouth: Present: Moist Mucous Membranes Pharnyx: Present: Normal. No: ERYTHEMA, EXUDATE, TONSILS ENLARGED Nose (External): Present: Atraumatic Nose (Internal): Present: Normal Inspection Neck: Present: Normal Range of Motion, Trachea Midline. No: Meningeal Signs Respiratory/Chest: Present: Clear to Auscultation, Good Air Exchange. No: Respiratory Distress, Accessory Muscle Use, Wheezes, Retracting, Rhonchi Cardiovascular: Present: Regular Rate and Rhythm, Normal S1, S2. No: Murmurs Abdomen: Present: Normal Bowel Sounds. No: Tenderness, Distention, Peritoneal Signs, Rebound, Guarding Back: Present: Normal Inspection. No: CVA Tenderness Upper Extremity: Present: Normal Inspection, Normal ROM, NORMAL PULSES, Neurovascularly Intact, Capillary Refill < 2s. No: Cyanosis, Edema Lower Extremity: Present: Normal Inspection, NORMAL PULSES, Normal ROM, Neurovascularly Intact, Capillary Refill < 2 s. No: Edema, CALF TENDERNESS Neurological: Present: GCS=15, CN II-XII Intact, Speech Normal, Motor Func Grossly Intact, Normal Sensory Function, Normal Cerebellar Funct, Memory Normal Skin: Present: Warm, Dry, Normal Color. No: Rashes Psychiatric: Present: Alert, Oriented x 3, Normal Insight, Normal Concentration Medical Decision Making ED Course and Treatment: 08/18/17 20:[address] Soler regarding patient history, lab results, and CT scan result. She recommended to have patient admitted under hospitalist. 08/18/17 21:06 [facility] Nurse will call Patient's Pharmacy to get the most updated list of medication taken by pt. 08/18/17 21:[address] Major House doctor regarding patient history VILLATORO, and left lower leg weakness. Dr. Whiteside also evaluated patient, and he recommended regular floor admission, and ICU is not needed at this time. Dr. Major agreed with observation Re-evaluation Time: 21:09 Reassessment Condition: Re-examined, Improving,but remains with symptoms - Lab Interpretations Lab Results: 08/18/17 16:30 08/18/17 16:30 Lab Results 08/18/17 16:30: Sodium 144, Potassium 4.1, Chloride 106, Carbon Dioxide 30, Anion Gap 12, BUN 21, Creatinine 1.0, Est GFR ( Amer) > 60, Est GFR (Non- Af Amer) > 60, Random Glucose 91, Calcium 8.9, Total Bilirubin 0.2, AST 26, ALT 34, Alkaline Phosphatase 89, Lactate Dehydrogenase 760 H, Total Creatine Kinase 53, Troponin I < 0.01, NT-Pro-B Natriuret Pep 90.4, Total Protein 6.3, Albumin 3.9, Globulin 2.5, Albumin/Globulin Ratio 1.6 08/18/17 16:30: Urine Color Yellow, Urine Appearance Clear, Urine pH 6.0, Ur Specific [place] 1.025, Urine Protein Negative, Urine Glucose (UA) Negative, Urine Ketones Negative, Urine Blood Negative, Urine Nitrate Negative, Urine Bilirubin Negative, Urine Urobilinogen 0.2, Ur Leukocyte Esterase Negative 08/18/17 16:30: PT 10.3, INR 0.95, APTT 26.5 08/18/17 16:30: WBC 3.3 L, RBC 3.69, Hgb 11.6 L, Hct 34.9 L, MCV 94.6, MCH 31.4 , MCHC 33.2, RDW 13.6, Plt Count 263, MPV 9.3, Gran % 43.7 L, Lymph % (Auto) 34.4, Story % (Auto) 17.7 H, Eos % (Auto) 3.9, Baso % (Auto) 0.3, Gran # 1.46, Lymph # 1.2, Story # 0.6, Eos # 0.1, Baso # 0.01 - RAD Interpretation Narrative RAD Interpretations (Text): 08/18/17 16:19 Chest x-rays: No acute disease 08/18/17 17:39 Accession No. : [id number] Patient Name / ID : LILIA DYER / [id number] Exam Date : 08/18/2017 16:11:51 ( Approved ) Study Comment : Sex / Age : M / 72Y Creator : Ryan Das MD Dictator : Ryan Das MD Tool Filer Hand : Cath Laboratory Technician : Ryan Das MD Approver2 : Report Date : 08/18/2017 16:22:51 My Comment : HISTORY: VILLATORO, weakness COMPARISON: 03/14/2017 FINDINGS: LUNGS: No active pulmonary disease. PLEURA: No significant pleural effusion identified, no pneumothorax apparent. CARDIOVASCULAR: Normal. OSSEOUS STRUCTURES: No significant abnormalities. VISUALIZED UPPER ABDOMEN: Normal. OTHER FINDINGS: None. IMPRESSION: No active disease. 08/18/17 19:54 Accession No. : [id number] Patient Name / ID : LILIA DYER / [id number] Exam Date : 08/18/2017 17:43:19 ( Approved ) Study Comment : Sex / Age : M / 72Y Creator : Amarjit Tyler MD Dictator : Amarjit Tyler MD Tool Filer Hand : Cath Laboratory Technician : Amarjit Tyler MD Approver2 : Report Date : 08/18/2017 18:51:53 My Comment : PROCEDURE: CT HEAD WITHOUT CONTRAST. HISTORY: VILLATORO COMPARISON: 03/14/2017 CT brain. 03/15/2017 MRI brain TECHNIQUE: Axial computed tomography images were obtained through the head/brain without intravenous contrast. Radiation dose: Total exam DLP = 1059.36 mGy-cm. This CT exam was performed using one or more of the following dose reduction techniques: Automated exposure control, adjustment of the mA and/or kV according to patient size, and/or use of iterative reconstruction technique. FINDINGS: HEMORRHAGE: No acute intracranial hemorrhage. BRAIN: Left basal ganglia mass appears partially necrotic, the size is approximately the same compared to the prior study. The left temporal lobe mass is approximately stable. However the degree of midline shift and edema has diminished postoperative and presumed postradiation changes are noted common new findings compared to the prior study. Mass effect upon the brainstem remains approximately stable. VENTRICLES: Unremarkable. No hydrocephalusThe degree of effacement of the left lateral ventricle has diminished compared to the prior study. All The degree of effacement of the left lateral ventricle has diminished. No evidence of effacement of basilar cisterns. . CALVARIUM: Post craniotomy findings represent a new finding compared to the prior study. PARANASAL SINUSES: Unremarkable as visualized. No significant inflammatory changes. MASTOID AIR CELLS: Unremarkable as visualized. No inflammatory changes. OTHER FINDINGS: None. IMPRESSION: Postoperative and presumed postradiation changes left hemisphere. Multiple (3) masses again identified. Decreased edema, mass effect and midline shift compared to the prior study. Delay in interpretation is relates to technical problems which were only resolved at 18:31. Radiology Orders: 08/18/17 15:56 HEAD W/O CONTRAST [CT] Stat 08/18/17 16:01 CHEST PORTABLE [RAD] Stat Barback: ED Physician (MARINA) - EKG Interpretation Interpreted by ED Physician: Yes (NSR @ [address] changes) Type: 12 lead EKG Comparison: No previous EKG avail. - Medication Orders Current Medication Orders: Discontinued Medications Diphenhydramine HCl (Benadryl) 25 mg IVP STAT STA Stop: 08/18/17 15:57 Last Admin: 08/18/17 16:35 Dose: 25 mg IVP Administration Document 08/18/17 16:35 HI (Rec: 08/18/17 16:35 [id number]) Charges for Administration # of IVP Administrations 1 Metoclopramide HCl 10 mg/ (Sodium Chloride) 52 mls @ 200 mls/hr IV STAT STA Stop: 08/18/17 16:11 Last Admin: 08/18/17 16:36 Dose: 200 mls/hr eMAR Start Stop Document 08/18/17 16:36 HI (Rec: 08/18/17 16:36 [id number]) Intravenous Solution Start Date 08/18/17 Start Time 16:36 Sodium Chloride (Sodium Chloride 0.9%) 500 mls @ 999 mls/hr IV .Q31M STA Stop: 08/18/17 16:29 Last Admin: 08/18/17 16:36 Dose: 999 mls/hr eMAR Start Stop Document 08/18/17 16:36 HI (Rec: 08/18/17 16:36 [id number]) Intravenous Solution Start Date 08/18/17 Start Time 16:36 NIHSS Scale ([employer]) Time Performed: 16:05 - How Severe is the Stoke Baseline Level of Consciousness: 0=Alert LOC to Questions: 0=Both comments correct LOC to commands: 0=Obeys both correctly Best Gaze: 0=Normal Visual: 0=No visual loss Facial: 0=Normal Motor Arm - Left: 0=No drift Motor Arm - Right: 0=No drift Motor Leg - Left: 0=No drift Motor Leg - Right: 0=No drift Limb Ataxia: 0=Absent Sensory: 0=Normal Best Language: 0=No aphasia Dysarthia: 0=Normal articulation Extinction & Inattention (Neglect): 0=Normal, no object Score: 0 Risk Level: No Stroke Risk rTPA Inclusion/Exclusion - Refusal of Treatment Patient Refused Treatment: No - Inclusion Criteria for Altepase Patient is 18 years or Older: Yes The Clinical Diagnosis of Ischemic Stroke That is Causing a Potentially Disabling Neurological Deficit: No Time of Onset is Well Established to be Less Than 270 Minute Before Treatment Would Begin: No - Exclusion Criteria for Altepase Uncontrolled Hypertension at Time of Treatment (Systolic BP above 185 or Diastolic BP above 110 mmHg): No History of: Brain Tumor Active Internal Bleeding: No Known Bleeding Diathesis Including but Not Limited to: Platelets Below 100,000/ mm,PTT Above 40 sec After Heparin Use, Current Use of Oral Anitcoagulant With INR Greater Than 1.7 or PT Greater Than 15 secs: No Evidence of an Intracranial Hemorrhage: No Evidence of Major Acute Infarct With Signs Greater Than 1/3 MCA Territory: No Suspicion of Subarachnoid Hemorrhage on Pretreatment Evaluation Even if CT Head Negative For Hemorrhage: No - Warning to TPA With Conditions Additional Condition (For 3-4.5 Hour Window): Prior Stroke and Diabetes Disposition/Present on Arrival - Present on Arrival Any Indicators Present on Arrival: No History of DVT/PE: No History of Uncontrolled Diabetes: No Urinary Catheter: No History Surgical Site Infection Following: None - Disposition Have Diagnosis and Disposition been Completed?: Yes Diagnosis: Weakness of left lower extremity, Headache Disposition: HOSPITALIZED Disposition Time: 21:10 Patient Plan: Admission Patient Problems: Current Active Problems Problem Status Onset Weakness of left lower extremity Acute Headache Acute Condition: STABLE Referrals: Yuliana Strange MD [Primary Care Provider] - Follow up with primary
[2017-08-18] MEDS ORDERED: DiphenhydrAMINE 50 mg/ml Inj IVP STA (15:56)
[2017-08-18] MEDS ORDERED: Sodium Chloride 0.9% 500 ML IV STA (15:59)
--- NOTE | 2017-08-18 16:24 | RAD ---
HISTORY: VILLATORO, weakness COMPARISON: 03/14/2017 FINDINGS: LUNGS: No active pulmonary disease. PLEURA: No significant pleural effusion identified, no pneumothorax apparent. CARDIOVASCULAR: Normal. OSSEOUS STRUCTURES: No significant abnormalities. VISUALIZED UPPER ABDOMEN: Normal. OTHER FINDINGS: None. IMPRESSION: No active disease.
[2017-08-18 16:49] LABS: BASO # 0.01 K/mm3 (0.0-2.0); BASO % 0.3 % (0.0-3.0); EOS # 0.1 (0.0-0.7); EOS % 3.9 % (1.5-5.0); GRAN # 1.46 (1.4-6.5); GRAN % 43.7 % (50.0-68.0); HEMATOCRIT 34.9 % (42.0-52.0); LYMPH # 1.2 (1.2-3.4); LYMPH % 34.4 % (22.0-35.0); MEAN CELL VOLUME 94.6 fl (80.0-105.0); MEAN CORPUSCULAR HEMOGLOBIN 31.4 pg (25.0-35.0); MEAN CORPUSCULAR HGB CONC 33.2 g/dl (31.0-37.0); MEAN PLATELET VOLUME 9.3 fl (7.0-11.0); MONO # 0.6 (0.1-0.6); MONO % 17.7 % (1.0-6.0); RED CELL DISTRIBUTION WIDTH 13.6 % (11.5-14.5); URINE BILIRUBIN NEGATIVE (NEGATIVE); URINE BLOOD NEGATIVE (NEGATIVE); URINE GLUCOSE (UA) NEGATIVE (NEGATIVE); URINE KETONE NEGATIVE (NEGATIVE); URINE LEUKOCYTE ESTERASE NEGATIVE Leu/uL (NEGATIVE); URINE PROTEIN NEGATIVE mg/dL (<30 mg/dL); URINE UROBILINOGEN 0.2 E.U./dL (<1 E.U./dL); WHITE BLOOD COUNT 3.3 10^3/ul (4.5-11.0)
[2017-08-18 16:52] LABS: URINE APPEARANCE CLEAR (CLEAR); URINE COLOR YELLOW (YELLOW)
[2017-08-18 17:00] LABS: INR 0.95 (0.93-1.08); PARTIAL THROMBOPLASTIN TIME 26.5 Seconds (23.7-30.8)
[2017-08-18 17:10] LABS: ALB/GLOB RATIO 1.6 (1.1-1.8); ALKALINE PHOSPHATASE 89 U/L (38-126); ALT/SGPT 34 U/L (7-56); AST/SGOT 26 U/L (17-59); BILIRUBIN,TOTAL 0.2 mg/dL (0.2-1.3); BLOOD UREA NITROGEN 21 mg/dL (7-21); CALCIUM 8.9 mg/dL (8.4-10.5); CARBON DIOXIDE 30 mmol/L (21-33); CHLORIDE 106 mmol/L (98-107); GFR AFRICAN-AMERICAN > 60; GLUCOSE,RANDOM 91 mg/dL (70-110); POTASSIUM 4.1 mmol/L (3.6-5.0); SODIUM 144 mmol/L (132-148); TOTAL PROTEIN 6.3 g/dL (5.8-8.3)
[2017-08-18 17:23] LABS: TROPONIN I < 0.01 ng/mL
--- NOTE | 2017-08-18 18:53 | CT ---
PROCEDURE: CT HEAD WITHOUT CONTRAST. HISTORY: VILLATORO COMPARISON: 03/14/2017 CT brain. 03/15/2017 MRI brain TECHNIQUE: Axial computed tomography images were obtained through the head/brain without intravenous contrast. Radiation dose: Total exam DLP = 1059.36 mGy-cm. This CT exam was performed using one or more of the following dose reduction techniques: Automated exposure control, adjustment of the mA and/or kV according to patient size, and/or use of iterative reconstruction technique. FINDINGS: HEMORRHAGE: No acute intracranial hemorrhage. BRAIN: Left basal ganglia mass appears partially necrotic, the size is approximately the same compared to the prior study. The left temporal lobe mass is approximately stable. However the degree of midline shift and edema has diminished postoperative and presumed postradiation changes are noted common new findings compared to the prior study. Mass effect upon the brainstem remains approximately stable. VENTRICLES: Unremarkable. No hydrocephalusThe degree of effacement of the left lateral ventricle has diminished compared to the prior study. All The degree of effacement of the left lateral ventricle has diminished. No evidence of effacement of basilar cisterns. . CALVARIUM: Post craniotomy findings represent a new finding compared to the prior study. PARANASAL SINUSES: Unremarkable as visualized. No significant inflammatory changes. MASTOID AIR CELLS: Unremarkable as visualized. No inflammatory changes. OTHER FINDINGS: None. IMPRESSION: Postoperative and presumed postradiation changes left hemisphere. Multiple (3) masses again identified. Decreased edema, mass effect and midline shift compared to the prior study. Delay in interpretation is relates to technical problems which were only resolved at 18:31.
--- NOTE | 2017-08-18 21:25 | CP.PCM.HP ---
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 Pt states that back in 03/2017 he was diagnosed with non hodgkins lymphoma of the brain and in 04/2017 he has started chemotherapy (last chemo treatment was 08/07/17). Patient follows up in [facility] for his treatment. He states that normally he gets headaches but this time it has gotten progressively worse. Pain is in the frontal region and 10/10 in severity. Denies any photophobia or neck pain. Patient also has been more weak recently and was having difficulty walking. Denies any fever, chills, cp, palpitations, abd pain, n/v/d. 12 point ROS performed and negativer other than stated above. PMH: Hep c?, DM, and non hodgkins lymphoma PSH: Denies Med: Refer to [facility] ALL: NKA SH: Former smoker >25 years 1 PPD; former social drinker and denies drugs FH: DM in sister and brother Present on Admission - Present on Admission Any Indicators Present on Admission: No Review of Systems - Review of Systems All systems: reviewed and no additional remarkable complaints except Past Patient History - Infectious Disease Hx of Infectious Diseases: None - Past Medical History & Family History Past Medical History?: Yes - Past Social History Smoking Status: Former Smoker - CARDIAC Hx Cardiac Disorders: Yes - PULMONARY Hx Respiratory Disorders: No - NEUROLOGICAL Hx Neurological Disorder: Yes HX Cerebrovascular Accident: Yes - HEENT Hx HEENT Problems: No - RENAL Hx Chronic Kidney Disease: No - ENDOCRINE/METABOLIC Hx Endocrine Disorders: No - HEMATOLOGICAL/ONCOLOGICAL Hx Blood Disorders: Yes Hx Hepatitis C: Yes - INTEGUMENTARY Hx Dermatological Problems: No - MUSCULOSKELETAL/RHEUMATOLOGICAL Hx Falls: Yes - GASTROINTESTINAL Hx Gastrointestinal Disorders: No - GENITOURINARY/GYNECOLOGICAL Hx Genitourinary Disorders: No - PSYCHIATRIC Hx Substance Use: No - SURGICAL HISTORY Hx Surgeries: No - ANESTHESIA Hx Anesthesia Reactions: No Hx Malignant Hyperthermia: No Meds Allergies/Adverse Reactions: Allergies Allergy/AdvReac Type Severity Reaction Status Date / Time No Known Allergies Allergy Verified 01/14/17 23:09 Physical Exam - Constitutional Appears: No Acute Distress - Head Exam Head Exam: ATRAUMATIC, NORMOCEPHALIC - Eye Exam Eye Exam: EOMI, PERRL Pupil Exam: NORMAL ACCOMODATION - ENT Exam ENT Exam: Mucous Membranes Moist - Respiratory Exam Respiratory Exam: Clear to Auscultation Bilateral. absent: Rales, Rhonchi, Wheezes - Cardiovascular Exam Cardiovascular Exam: REGULAR RHYTHM, RRR, +S1, +S2 - GI/Abdominal Exam GI & Abdominal Exam: Normal Bowel Sounds, Soft. absent: Distended - Extremities Exam Extremities exam: Negative for: calf tenderness, pedal edema - Neurological Exam Neurological exam: Alert, CN II-XII Intact, Oriented x3 Additional comments: Upper and lower ext motor strength 4/5 in strength - Psychiatric Exam Psychiatric exam: Normal Affect, Normal Mood - Skin Skin Exam: Dry, Intact, Normal Color, Warm Results - Vital Signs Recent Vital Signs: Last Vital Signs Temp 98.2 F 08/18/17 15:16 Pulse 71 08/18/17 18:00 Resp 18 08/18/17 18:00 BP 121/69 08/18/17 18:00 Pulse Ox 97 08/18/17 18:00 - Labs Result Diagrams: 08/18/17 16:30 08/18/17 16:30 Assessment & Plan - Assessment and Plan (Free Text) Assessment: 72 M with pmh of Hep c?, DM, and 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 1. Hx of non hodgkins lymphoma - CTH showed post op and persumed psot radiation changes L hemisphere; dec edema and mass effect compare to prior study - Obtain records from [facility] - Consult neuro for recs - CXR showed no active dx - Seizure and fall precautions - Consider heme/onc consult - Neuro checks Q4H - F/u blood and urine cx - Daily labs - Tele monitoring 2. Hx of DM - Hold home metformin - cont to monitor 3. GI/DVT ppx - Protonix and SCDs - Cons carb diet Case and plan was reviewed and discussed in detail with Dr Whiteside. <Miesha RESTREPO,Rafat - Last Filed: 08/19/17 07:07> Results - Vital Signs Recent Vital Signs: Last Vital Signs Temp 98 F 08/19/17 00:00 Pulse 72 08/19/17 04:49 Resp 20 08/19/17 00:00 BP 127/67 08/19/17 00:00 Pulse Ox 95 08/19/17 00:00 - Labs Result Diagrams: 08/19/17 06:00 08/19/17 06:00 Labs: Laboratory Results - last 24 hr 08/19/17 08/19/17 06:00 06:00 WBC 3.8 L RBC 3.72 Hgb 11.5 L Hct 35.2 L MCV 94.6 MCH 30.9 MCHC 32.7 RDW 13.8 Plt Count 264 MPV 9.0 Gran % 45.5 L Lymph % (Auto) 33.4 [place] % (Auto) 16.2 H Eos % (Auto) 4.4 Baso % (Auto) 0.5 Gran # 1.74 Lymph # 1.3 [place] # 0.6 Eos # 0.2 Baso # 0.02 Sodium 146 Potassium 3.9 Chloride 108 H Carbon Dioxide 29 Anion Gap 13 BUN 16 Creatinine 0.9 Est GFR ( Amer) > 60 Est GFR (Non-Af Amer) > 60 Random Glucose 91 Calcium 9.0 Total Bilirubin 0.3 AST 35 ALT 27 Alkaline Phosphatase 77 Total Protein 6.2 Albumin 3.7 Globulin 2.5 Albumin/Globulin Ratio 1.5 Attending/Attestation - Attestation I have personally seen and examined this patient.: Yes I have fully participated in the care of the patient.: Yes I have reviewed all pertinent clinical information: Yes Notes (Text): -I agree with the above H&P completed by the resident physician with the following additions and/or changes: -The patient is a 72 year old man with a history of brain lymphoma (on chemo at [facility] since Jul 2017), who is being admitted for acutely worsening gait instability and frontal headache. He denies any recent head trauma or focal deficits. CT-head shows a decrease in brain edema and shift in comparison to imaging from March 2017. Neurology has been consulted.
--- NOTE | 2017-08-18 21:59 | CARD ---
APPROVED REPORT EKG Measurement Heart [id number] <Conclusion> Poor data quality, interpretation may be adversely affected Normal sinus rhythm Normal ECG
[2017-08-18] MEDS: Albuterol-Ipratrop 3 mg / 0.5 (3 ml) UD IH SCH (22:32)
[2017-08-18 22:50] LABS: CHOLESTEROL 202 mg/dL (130-200)
[2017-08-19 00:40] VITALS: RESP 20
[2017-08-19] MEDS: Albuterol-Ipratrop 3 mg / 0.5 (3 ml) UD IH SCH ×3 (02:01→13:11)
[2017-08-19] MEDS ORDERED: Pantoprazole 40 mg EC Tab PO SCH (06:00)
[2017-08-19 06:38] LABS: BASO # 0.02 K/mm3 (0.0-2.0); BASO % 0.5 % (0.0-3.0); EOS # 0.2 (0.0-0.7); EOS % 4.4 % (1.5-5.0); GRAN # 1.74 (1.4-6.5); GRAN % 45.5 % (50.0-68.0); HEMATOCRIT 35.2 % (42.0-52.0); LYMPH # 1.3 (1.2-3.4); LYMPH % 33.4 % (22.0-35.0); MEAN CELL VOLUME 94.6 fl (80.0-105.0); MEAN CORPUSCULAR HEMOGLOBIN 30.9 pg (25.0-35.0); MEAN CORPUSCULAR HGB CONC 32.7 g/dl (31.0-37.0); MONO # 0.6 (0.1-0.6); MONO % 16.2 % (1.0-6.0); RED CELL DISTRIBUTION WIDTH 13.8 % (11.5-14.5); WHITE BLOOD COUNT 3.8 10^3/ul (4.5-11.0)
[2017-08-19 06:47] LABS: ALB/GLOB RATIO 1.5 (1.1-1.8); ALKALINE PHOSPHATASE 77 U/L (38-126); ALT/SGPT 27 U/L (7-56); AST/SGOT 35 U/L (17-59); BILIRUBIN,TOTAL 0.3 mg/dL (0.2-1.3); BLOOD UREA NITROGEN 16 mg/dL (7-21); CARBON DIOXIDE 29 mmol/L (21-33); CHLORIDE 108 mmol/L (98-107); GFR AFRICAN-AMERICAN > 60; GLUCOSE,RANDOM 91 mg/dL (70-110); POTASSIUM 3.9 mmol/L (3.6-5.0); SODIUM 146 mmol/L (132-148); TOTAL PROTEIN 6.2 g/dL (5.8-8.3)
--- NOTE | 2017-08-19 08:29 | CP.PCM.CON ---
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 Patient was A&O x 1 this am and denies having any pain, headache, numbness/tingling, CP, SOB, fever/ chills, n/v/d or weakness. History obtained from previous records. He was receiving chemotherapy at [facility] (last treatment on 08/07/17) and began to have headaches and weakness that became worse. It was located in the frontal region that did not radiate. I spoke with patient's who reports that the patient has been having headaches the past 2 days. He was seeing a physical therapist at home who noted that the patient has been weaker and dragging his feet so his decided to bring him into the hospital. He sees Dr. Lemus at [facility] for his chemotherapy. According to his , he was receiving Rituxin and Methotrexate. She reports that they were going to stop the Methotrexate and continue the Rituxin as outpatient. He has not received at radiation therapy. He was supposed to go to chemo this Thursday (08/14 ) but did not go because he was not feeling well. Head CT was reported as post operative and presumed post-radiation changes in L hemisphere with multiple (3) masses identified. Decreased edema, mass effect and midline shift compared to prior study. As per , patient had 2 brain lesions last seen as per . 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 Lemus [phone] Review of Systems - Review of Systems Systems not reviewed;Unavailable: Altered Mental Status Past Patient History - Infectious Disease Hx of Infectious Diseases: None - Past Medical History & Family History Past Medical History?: Yes - Past Social History Smoking Status: Former Smoker - CARDIAC Hx Cardiac Disorders: Yes - PULMONARY Hx Respiratory Disorders: No - NEUROLOGICAL Hx Neurological Disorder: Yes HX Cerebrovascular Accident: Yes (Questionable) - HEENT Hx HEENT Problems: No - RENAL Hx Chronic Kidney Disease: No - ENDOCRINE/METABOLIC Hx Endocrine Disorders: No - HEMATOLOGICAL/ONCOLOGICAL Hx Blood Disorders: Yes - INTEGUMENTARY Hx Dermatological Problems: No - MUSCULOSKELETAL/RHEUMATOLOGICAL Hx Falls: Yes - GASTROINTESTINAL Hx Gastrointestinal Disorders: No - GENITOURINARY/GYNECOLOGICAL Hx Genitourinary Disorders: No - PSYCHIATRIC Hx Psychophysiologic Disorder: No - SURGICAL HISTORY Hx Surgeries: No Other/Comment: Brain biopsy March 2017, Lung biopsy January 2017 - ANESTHESIA Hx Anesthesia Reactions: No Hx Malignant Hyperthermia: No Meds Allergies/Adverse Reactions: Allergies Allergy/AdvReac Type Severity Reaction Status Date / Time No Known Allergies Allergy Verified 01/14/17 23:09 - Medications Medications: Current Medications Albuterol/Ipratropium (Duoneb 3 Mg/0.5 Mg (3 Ml) Ud) 3 ml IH [id number] [facility] Last Admin: 08/19/17 07:47 Dose: 3 ml Aspirin (Ecotrin) 81 mg PO DAILY [facility] Atorvastatin Calcium (Lipitor) 20 mg PO HS [facility] Last Admin: 08/18/17 22:30 Dose: Not Given Docusate Sodium (Colace) 200 mg PO HS [facility] Last Admin: 08/18/17 22:30 Dose: Not Given Pantoprazole Sodium (Protonix Ec Tab) 40 mg PO 0600 [facility] Last Admin: 08/19/17 06:16 Dose: 40 mg Physical Exam - Constitutional Appears: No Acute Distress - Head Exam Head Exam: ATRAUMATIC, NORMAL INSPECTION, NORMOCEPHALIC - Eye Exam Eye Exam: Normal appearance, PERRL Pupil Exam: NORMAL ACCOMODATION, PERRL - ENT Exam ENT Exam: Mucous Membranes Moist - Respiratory Exam Respiratory Exam: Clear to Auscultation Bilateral, NORMAL BREATHING PATTERN. absent: Rales, Rhonchi, Wheezes - Cardiovascular Exam Cardiovascular Exam: REGULAR RHYTHM, +S1, +S2. absent: Gallop, Rubs, Systolic Murmur - GI/Abdominal Exam GI & Abdominal Exam: Normal Bowel Sounds, Soft. absent: Rebound, Rigid, Tenderness - Extremities Exam Extremities exam: Positive for: normal inspection. Negative for: calf tenderness, pedal edema - Neurological Exam Neurological exam: Alert - Expanded Neurological Exam Expanded Patient oriented to: person Cranial nerves: Facial Palsey w/Forehead Movement: Normal, Facial Palsey w/o Forehead Movement: Normal, Facial Sensation: Normal Cerebellar Function: Finger to Nose: Abnormal Right Upper motor neuron: Lobo Neglect: Normal, Pronator Drift: Normal Sensory exam: Lower Extremity 2 Point Discrimination: Normal, Lower Extremity Light Touch: Normal, Upper Extremity 2 Point Discrimination: Normal, Upper Extremity Light Touch: Normal Neuro motor strength exam: Left Upper Extremity: 4, Right Upper Extremity: 3, Left Lower Extremity: 4, Right Lower Extremity: 3 Coma Scale Eye Opening: SPONTANEOUS Coma Scale Motor Response: OBEYS COMMANDS Coma Scale Verbal: Confused Coma Scale Total: 14 - Psychiatric Exam Psychiatric exam: Normal Affect, Normal Mood - Skin Skin Exam: Dry, Warm Results - Vital Signs Recent Vital Signs: Last Vital Signs Temp 98 F 08/19/17 00:00 Pulse 72 08/19/17 07:50 Resp 20 08/19/17 00:00 BP 127/67 08/19/17 00:00 Pulse Ox 95 08/19/17 00:00 - Labs Result Diagrams: 08/19/17 06:00 08/19/17 06:00 Labs: Laboratory Results - last 24 hr 08/19/17 08/19/17 06:00 06:00 WBC 3.8 L RBC 3.72 Hgb 11.5 L Hct 35.2 L MCV 94.6 MCH 30.9 MCHC 32.7 RDW 13.8 Plt Count 264 MPV 9.0 Gran % 45.5 L Lymph % (Auto) 33.4 [place] % (Auto) 16.2 H Eos % (Auto) 4.4 Baso % (Auto) 0.5 Gran # 1.74 Lymph # 1.3 [place] # 0.6 Eos # 0.2 Baso # 0.02 Sodium 146 Potassium 3.9 Chloride 108 H Carbon Dioxide 29 Anion Gap 13 BUN 16 Creatinine 0.9 Est GFR ( Amer) > 60 Est GFR (Non-Af Amer) > 60 Random Glucose 91 Calcium 9.0 Total Bilirubin 0.3 AST 35 ALT 27 Alkaline Phosphatase 77 Total Protein 6.2 Albumin 3.7 Globulin 2.5 Albumin/Globulin Ratio 1.5 Assessment & Plan - Assessment and Plan (Free Text) Assessment: This is 72Y M with PMH Aspergillosis, cavitary lesion of lung, 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 Head CT was reported as post operative and presumed post-radiation changes in L hemisphere with multiple (3) masses identified. Decreased edema, mass effect and midline shift compared to prior study. As per , patient had 2 brain lesions last seen as per . Patient is on chemotherapy (Rituxin and Methotrexate) with last chemo treatment on 08/07/17. He is currently getting treatment at [facility] by Dr. Lemus. Plan: - Physical therapy - Continue Lipitor and ASA for stroke prevention - Speech/Swallow eval - Maintain euglycemia I spoke with Dr. Lemus who believes that patient will benefit from transfer to [facility]. also agrees with transfer. Patient will be transferred today for further management. Case seen, discussed and reviewed with Dr. Hernandez. Moose Suarez PGY2 - Date & Time Date: 08/19/17 Time: 08:35
[2017-08-19 09:02] VITALS: BP 123/57; PULSE 66; TEMP 98.3; O2SAT 97
--- NOTE | 2017-08-19 13:16 | CP.PCM.PN ---
Subjective - Date & Time of Evaluation Date of Evaluation: 08/19/17 Time of Evaluation: 09:30 Objective - Vital Signs/Intake and Output Vital Signs (last 24 hours): Temp Pulse Resp BP Pulse Ox 98.3 F 66 20 123/57 L 97 08/19/17 09:01 08/19/17 09:01 08/19/17 09:01 08/19/17 09:01 08/19/17 09:01 Intake and Output: 08/19/17 08/19/17 06:59 18:59 Intake Total 480 Balance 480 - Medications Medications: Current Medications Albuterol/Ipratropium (Duoneb 3 Mg/0.5 Mg (3 Ml) Ud) 3 ml IH [id number] [facility] Last Admin: 08/19/17 07:47 Dose: 3 ml Aspirin (Ecotrin) 81 mg PO DAILY [facility] Last Admin: 08/19/17 11:55 Dose: 81 mg Atorvastatin Calcium (Lipitor) 20 mg PO HS [facility] Last Admin: 08/18/17 22:30 Dose: Not Given Docusate Sodium (Colace) 200 mg PO HS [facility] Last Admin: 08/18/17 22:30 Dose: Not Given Levetiracetam (Keppra) 500 mg PO BID [facility] Last Admin: 08/19/17 11:55 Dose: 500 mg Pantoprazole Sodium (Protonix Ec Tab) 40 mg PO 0600 [facility] Last Admin: 08/19/17 06:16 Dose: 40 mg Valacyclovir HCl (Valtrex) 500 mg PO DAILY [facility] PRN Reason: Protocol Last Admin: 08/19/17 11:55 Dose: 500 mg - Labs Labs: 08/19/17 06:00 08/19/17 06:00 PT 10.3 Seconds (9.9-11.8) 08/18/17 16:30 INR 0.95 (0.93-1.08) 08/18/17 16:30 APTT 26.5 Seconds (23.7-30.8) 08/18/17 16:30
[2017-08-19 13:23] LABS: FOLATE > 20.0 ng/mL
--- NOTE | 2017-08-19 13:26 | CP.PCM.DIS ---
<Reid Lakhani - Last Filed: 08/19/17 13:17> Provider - Provider Date of Admission: 08/18/17 20:58 Attending physician: Fercho Lance MD Primary care physician: Yuliana Strange MD Time Spent in preparation of Discharge (in minutes): 45 Diagnosis - Discharge Diagnosis (1) Diabetes Status: Acute Priority: Medium (2) Non-Hodgkin lymphoma Status: Acute Priority: Medium (3) Headache Status: Acute Priority: Medium (4) Weakness of left lower extremity Status: Acute Priority: Medium (5) Altered mental status Status: Acute Priority: Medium Hospital Course - Lab Results Lab Results: Most Recent Lab Values WBC 3.8 10^3/ul (4.5-11.0) L 08/19/17 06:00 RBC 3.72 10^6/uL (3.5-6.1) 08/19/17 06:00 Hgb 11.5 g/dL (14.0-18.0) L 08/19/17 06:00 Hct 35.2 % (42.0-52.0) L 08/19/17 06:00 MCV 94.6 fl (80.0-105.0) 08/19/17 06:00 MCH 30.9 pg (25.0-35.0) 08/19/17 06:00 MCHC 32.7 g/dl (31.0-37.0) 08/19/17 06:00 RDW 13.8 % (11.5-14.5) 08/19/17 06:00 Plt Count 264 10^3/uL (120.0-450.0) 08/19/17 06:00 MPV 9.0 fl (7.0-11.0) 08/19/17 06:00 Gran % 45.5 % (50.0-68.0) L 08/19/17 06:00 Lymph % (Auto) 33.4 % (22.0-35.0) 08/19/17 06:00 [place] % (Auto) 16.2 % (1.0-6.0) H 08/19/17 06:00 Eos % (Auto) 4.4 % (1.5-5.0) 08/19/17 06:00 Baso % (Auto) 0.5 % (0.0-3.0) 08/19/17 06:00 Gran # 1.74 (1.4-6.5) 08/19/17 06:00 Lymph # 1.3 (1.2-3.4) 08/19/17 06:00 [place] # 0.6 (0.1-0.6) 08/19/17 06:00 Eos # 0.2 (0.0-0.7) 08/19/17 06:00 Baso # 0.02 K/mm3 (0.0-2.0) 08/19/17 06:00 PT 10.3 Seconds (9.9-11.8) 08/18/17 16:30 INR 0.95 (0.93-1.08) 08/18/17 16:30 APTT 26.5 Seconds (23.7-30.8) 08/18/17 16:30 Sodium 146 mmol/L (132-148) 08/19/17 06:00 Potassium 3.9 mmol/L (3.6-5.0) 08/19/17 06:00 Chloride 108 mmol/L (98-107) H 08/19/17 06:00 Carbon Dioxide 29 mmol/L (21-33) 08/19/17 06:00 Anion Gap 13 (10-20) 08/19/17 06:00 BUN 16 mg/dL (7-21) 08/19/17 06:00 Creatinine 0.9 mg/dL (0.8-1.5) 08/19/17 06:00 Est GFR ( Amer) > 60 08/19/17 06:00 Est GFR (Non-Af Amer) > 60 08/19/17 06:00 Random Glucose 91 mg/dL (70-110) 08/19/17 06:00 Hemoglobin A1c 5.2 % (4.2-6.5) 08/18/17 16:30 Calcium 9.0 mg/dL (8.4-10.5) 08/19/17 06:00 Total Bilirubin 0.3 mg/dL (0.2-1.3) 08/19/17 06:00 AST 35 U/L (17-59) 08/19/17 06:00 ALT 27 U/L (7-56) 08/19/17 06:00 Alkaline Phosphatase 77 U/L (38-126) 08/19/17 06:00 Lactate Dehydrogenase 760 U/L (333-699) H 08/18/17 16:30 Total Creatine Kinase 53 U/L (35-230) 08/18/17 16:30 Troponin I < 0.01 ng/mL 08/18/17 16:30 NT-Pro-B Natriuret Pep 90.4 pg/mL (0-450) 08/18/17 16:30 Total Protein 6.2 g/dL (5.8-8.3) 08/19/17 06:00 Albumin 3.7 g/dL (3.0-4.8) 08/19/17 06:00 Globulin 2.5 gm/dL 08/19/17 06:00 Albumin/Globulin Ratio 1.5 (1.1-1.8) 08/19/17 06:00 Triglycerides 335 mg/dL (35-160) H 08/18/17 16:30 Cholesterol 202 mg/dL (130-200) H 08/18/17 16:30 LDL Cholesterol Direct 119 mg/dL (0-129) 08/18/17 16:30 HDL Cholesterol 38 mg/dL (29-60) 08/18/17 16:30 Vitamin B12 477 pg/mL (239-931) 08/19/17 06:00 TSH 3rd Generation 0.93 mIU/mL (0.46-4.68) 08/18/17 16:30 Urine Color Yellow (YELLOW) 08/18/17 16:30 Urine Appearance Clear (CLEAR) 08/18/17 16:30 Urine pH 6.0 (4.7-8.0) 08/18/17 16:30 Ur Specific [place] 1.025 (1.005-1.035) 08/18/17 16:30 Urine Protein Negative mg/dL (<30 mg/dL) 08/18/17 16:30 Urine Glucose (UA) Negative mg/dL (NEGATIVE) 08/18/17 16:30 Urine Ketones Negative mg/dL (NEGATIVE) 08/18/17 16:30 Urine Blood Negative (NEGATIVE) 08/18/17 16:30 Urine Nitrate Negative (NEGATIVE) 08/18/17 16:30 Urine Bilirubin Negative (NEGATIVE) 08/18/17 16:30 Urine Urobilinogen 0.2 E.U./dL (<1 E.U./dL) 08/18/17 16:30 Ur Leukocyte Esterase Negative Jewel/uL (NEGATIVE) 08/18/17 16:30 Hepatitis A IgM Ab Negative (NEGATIVE) 08/19/17 06:00 Hep Bs Antigen Negative (NEGATIVE) 08/19/17 06:00 Hep B Core IgM Ab Negative (NEGATIVE) 08/19/17 06:00 - Hospital Course Hospital Course: Patient is a 72 male with a past medical history of DM, and non hodgkins lymphoma of the brain who was admitted for evaluation and treatment of generalized weakness, difficulty walking, and severe headaches. With the use of physical examinations, lab work, and imaging the patient was diagnosed with and treated for his chronic conditions. During their hospital stay the patient was seen by neurology and their recommendations were both appreciated and utilized in the care for this patient. During their hospital stay the patient underwent a CT of the head and chest xray which were reviewed, appreciated, and utilized in the management of the patients clinical course. The CT of the head showed postoperative and presumed postradiation changes left hemisphere, Multiple (3) masses, decreased edema, mass effect and midline shift compared to the prior study. Patients physican at [facility] was contacted and he was accepted there to attain a higher level of care that he requires. At this time the patient is medically stable for transfer to [facility]. Patient' s understands and appreciates discharge plan. Patient and patient's are instructed to follow up with primary care physicians and referrals within three to five days from discharge. Furthermore, they are instructed to take medications as prescribed and to return to emergency room for evaluation of intractable headache, fever, chills, dizziness, chest pain, shortness of breath , abdominal pain, nausea, vomiting, diarrhea, constipation, and urinary symptoms. This is a brief summary of the patients hospital course. Please see patient chart for full details. Discharge Exam - Head Exam Head Exam: ATRAUMATIC, NORMAL INSPECTION, NORMOCEPHALIC - Additional Findings Additional findings: - Constitutional Appears: No Acute Distress - Head Exam Head Exam: ATRAUMATIC, NORMOCEPHALIC - Eye Exam Eye Exam: EOMI, PERRL Pupil Exam: NORMAL ACCOMODATION - ENT Exam ENT Exam: Mucous Membranes Moist - Respiratory Exam Respiratory Exam: Clear to Auscultation Bilateral. absent: Rales, Rhonchi, Wheezes - Cardiovascular Exam Cardiovascular Exam: REGULAR RHYTHM, RRR, +S1, +S2 - GI/Abdominal Exam GI & Abdominal Exam: Normal Bowel Sounds, Soft. absent: Distended - Extremities Exam Extremities exam: Negative for: calf tenderness, pedal edema - Neurological Exam Neurological exam: Awake, alert, R sided weakness relative to left, Left UE 5/5 muscle strenght, right LE 5/5 muscle strenght - Psychiatric Exam Psychiatric exam: Normal Affect, Normal Mood - Skin Skin Exam: Dry, Intact, Normal Color, Warm Discharge Plan - Follow Up Plan Condition: STABLE Disposition: TRANSF TO SNF Patient education suggested?: Yes Instructions: Non-Hodgkin Lymphoma (DC) Additional Instructions: Patient Instructions: Continue care at [facility]. Take medications as prescribed. Follow up with PMD and referrals within three to five days from discharge. Return to the emergency room for evaluation of intractable headache, fever, chills, dizziness, chest pain, shortness of breath, abdominal pain, nausea, vomiting, diarrhea, constipation, and urinary symptoms Referrals: Yuliana Strange MD [Primary Care Provider] - <Fercho Lance - Last Filed: 08/19/17 16:44> Provider - Provider Date of Admission: 08/18/17 20:58 Attending physician: Fercho Lance MD Primary care physician: Yuliana Strange MD Hospital Course - Lab Results Lab Results: Most Recent Lab Values WBC 3.8 10^3/ul (4.5-11.0) L 08/19/17 06:00 RBC 3.72 10^6/uL (3.5-6.1) 08/19/17 06:00 Hgb 11.5 g/dL (14.0-18.0) L 08/19/17 06:00 Hct 35.2 % (42.0-52.0) L 08/19/17 06:00 MCV 94.6 fl (80.0-105.0) 08/19/17 06:00 MCH 30.9 pg (25.0-35.0) 08/19/17 06:00 MCHC 32.7 g/dl (31.0-37.0) 08/19/17 06:00 RDW 13.8 % (11.5-14.5) 08/19/17 06:00 Plt Count 264 10^3/uL (120.0-450.0) 08/19/17 06:00 MPV 9.0 fl (7.0-11.0) 08/19/17 06:00 Gran % 45.5 % (50.0-68.0) L 08/19/17 06:00 Lymph % (Auto) 33.4 % (22.0-35.0) 08/19/17 06:00 [place] % (Auto) 16.2 % (1.0-6.0) H 08/19/17 06:00 Eos % (Auto) 4.4 % (1.5-5.0) 08/19/17 06:00 Baso % (Auto) 0.5 % (0.0-3.0) 08/19/17 06:00 Gran # 1.74 (1.4-6.5) 08/19/17 06:00 Lymph # 1.3 (1.2-3.4) 08/19/17 06:00 [place] # 0.6 (0.1-0.6) 08/19/17 06:00 Eos # 0.2 (0.0-0.7) 08/19/17 06:00 Baso # 0.02 K/mm3 (0.0-2.0) 08/19/17 06:00 PT 10.3 Seconds (9.9-11.8) 08/18/17 16:30 INR 0.95 (0.93-1.08) 08/18/17 16:30 APTT 26.5 Seconds (23.7-30.8) 08/18/17 16:30 Sodium 146 mmol/L (132-148) 08/19/17 06:00 Potassium 3.9 mmol/L (3.6-5.0) 08/19/17 06:00 Chloride 108 mmol/L (98-107) H 08/19/17 06:00 Carbon Dioxide 29 mmol/L (21-33) 08/19/17 06:00 Anion Gap 13 (10-20) 08/19/17 06:00 BUN 16 mg/dL (7-21) 08/19/17 06:00 Creatinine 0.9 mg/dL (0.8-1.5) 08/19/17 06:00 Est GFR ( Amer) > 60 08/19/17 06:00 Est GFR (Non-Af Amer) > 60 08/19/17 06:00 Random Glucose 91 mg/dL (70-110) 08/19/17 06:00 Hemoglobin A1c 5.2 % (4.2-6.5) 08/18/17 16:30 Calcium 9.0 mg/dL (8.4-10.5) 08/19/17 06:00 Total Bilirubin 0.3 mg/dL (0.2-1.3) 08/19/17 06:00 AST 35 U/L (17-59) 08/19/17 06:00 ALT 27 U/L (7-56) 08/19/17 06:00 Alkaline Phosphatase 77 U/L (38-126) 08/19/17 06:00 Lactate Dehydrogenase 760 U/L (333-699) H 08/18/17 16:30 Total Creatine Kinase 53 U/L (35-230) 08/18/17 16:30 Troponin I < 0.01 ng/mL 08/18/17 16:30 NT-Pro-B Natriuret Pep 90.4 pg/mL (0-450) 08/18/17 16:30 Total Protein 6.2 g/dL (5.8-8.3) 08/19/17 06:00 Albumin 3.7 g/dL (3.0-4.8) 08/19/17 06:00 Globulin 2.5 gm/dL 08/19/17 06:00 Albumin/Globulin Ratio 1.5 (1.1-1.8) 08/19/17 06:00 Triglycerides 335 mg/dL (35-160) H 08/18/17 16:30 Cholesterol 202 mg/dL (130-200) H 08/18/17 16:30 LDL Cholesterol Direct 119 mg/dL (0-129) 08/18/17 16:30 HDL Cholesterol 38 mg/dL (29-60) 08/18/17 16:30 Vitamin B12 477 pg/mL (239-931) 08/19/17 06:00 Folate > 20.0 ng/mL 08/19/17 06:00 TSH 3rd Generation 0.93 mIU/mL (0.46-4.68) 08/18/17 16:30 Urine Color Yellow (YELLOW) 08/18/17 16:30 Urine Appearance Clear (CLEAR) 08/18/17 16:30 Urine pH 6.0 (4.7-8.0) 08/18/17 16:30 Ur Specific [place] 1.025 (1.005-1.035) 08/18/17 16:30 Urine Protein Negative mg/dL (<30 mg/dL) 08/18/17 16:30 Urine Glucose (UA) Negative mg/dL (NEGATIVE) 08/18/17 16:30 Urine Ketones Negative mg/dL (NEGATIVE) 08/18/17 16:30 Urine Blood Negative (NEGATIVE) 08/18/17 16:30 Urine Nitrate Negative (NEGATIVE) 08/18/17 16:30 Urine Bilirubin Negative (NEGATIVE) 08/18/17 16:30 Urine Urobilinogen 0.2 E.U./dL (<1 E.U./dL) 08/18/17 16:30 Ur Leukocyte Esterase Negative Jewel/uL (NEGATIVE) 08/18/17 16:30 Hepatitis A IgM Ab Negative (NEGATIVE) 08/19/17 06:00 Hep Bs Antigen Negative (NEGATIVE) 08/19/17 06:00 Hep B Core IgM Ab Negative (NEGATIVE) 08/19/17 06:00 Hepatitis C Antibody Reactive (NEGATIVE) 08/19/17 06:00 Attending/Attestation - Attestation I have personally seen and examined this patient.: Yes I have fully participated in the care of the patient.: Yes I have reviewed all pertinent clinical information, including history, physical exam and plan: Yes Notes (Text): 08/19/17 16:40 Attending note; Patient is a 72-year-old male with a history of non-Hodgkin's lymphoma of the [employer] primary is admitted with increasing confusion and left-sided weakness. Patient was recently discharged from [facility] after treatment with chemotherapy. patient got rituxin and methotrexate recently by Dr. Oconnell. Patient is currently alert and awake. Able to answer a few questions. History is not reliable. CT head showed reduction in the size of the mass. CD copy given to the patient. Neurology evaluation requested. Neurology resident discussed with oncologist at [facility]. The patient will be transferred to [facility] today. Transfer form signed by patient's . Transferred to [facility] for higher level of care. Diagnosis; Non-Hodgkin's lymphoma of the [employer]IAN Cognitive impairment Gait instability
== END 2017-08-19 15:43 | disposition short-term general hospital (02) ==
LOC: ED 15:01 → ERH 20:58 → 3RSO 22:53
PROVIDERS: ADMIT Internal Medicine; ATTEND Internal Medicine
DX: C85.90 Non-Hodgkin lymphoma, unspecified, unspecified site (principal); E11.9 Type 2 diabetes mellitus without complications; E78.5 Hyperlipidemia, unspecified; I69.351 Hemiplegia and hemiparesis following cerebral infarction affecting right dominant side; Z86.19 Personal history of other infectious and parasitic diseases; Z87.09 Personal history of other diseases of the respiratory system; Z79.82 Long term (current) use of aspirin; Z83.3 Family history of diabetes mellitus; Z87.891 Personal history of nicotine dependence; R51 Headache; I69.354 Hemiplegia and hemiparesis following cerebral infarction affecting left non-dominant side; R41.82 Altered mental status, unspecified
CPT/HCPCS: 36415; 70450; 71010; 80053; 80061; 80074; 81003; 82550; 82607; 82746; 83036; 83615; 83880; 84443; 84484; 85025; 85610; 85730; 87040; 87086; 93005; 94640; 96374; 99285; G0378; J1200; J2765; J7040

== ENCOUNTER 2017-09-25 14:26 | Emergency (ER) | payer MEDICARE ==
[2017-09-25 14:26] VITALS: BMI 35.2
[2017-09-25 14:57] VITALS: TEMP 98.6
--- NOTE | 2017-09-25 15:19 | RAD ---
HISTORY: Edema COMPARISON: 08/18/2017 FINDINGS: LUNGS: No active pulmonary disease. PLEURA: No significant pleural effusion identified, no pneumothorax apparent. CARDIOVASCULAR: Normal. OSSEOUS STRUCTURES: No significant abnormalities. VISUALIZED UPPER ABDOMEN: Normal. OTHER FINDINGS: None. IMPRESSION: No active disease.
[2017-09-25 15:40] LABS: PH,URINE 5.5 (4.7-8.0); URINE BILIRUBIN NEGATIVE (NEGATIVE); URINE BLOOD NEGATIVE (NEGATIVE); URINE GLUCOSE (UA) NEGATIVE (NEGATIVE); URINE KETONE NEGATIVE (NEGATIVE); URINE LEUKOCYTE ESTERASE NEGATIVE Leu/uL (NEGATIVE); URINE PROTEIN TRACE mg/dL (<30 mg/dL); URINE UROBILINOGEN 0.2 E.U./dL (<1 E.U./dL)
[2017-09-25 15:41] LABS: URINE APPEARANCE CLEAR (CLEAR); URINE COLOR YELLOW (YELLOW)
[2017-09-25 15:42] LABS: GRAN # 2.03 (1.4-6.5); GRAN % 77.2 % (50.0-68.0); HEMATOCRIT 39.9 % (42.0-52.0); LYMPH # 0.4 (1.2-3.4); LYMPH % 14.8 % (22.0-35.0); MEAN CELL VOLUME 95.5 fl (80.0-105.0); MEAN CORPUSCULAR HEMOGLOBIN 31.1 pg (25.0-35.0); MEAN CORPUSCULAR HGB CONC 32.6 g/dl (31.0-37.0); MEAN PLATELET VOLUME 9.4 fl (7.0-11.0); MONO # 0.2 (0.1-0.6); RED CELL DISTRIBUTION WIDTH 14.8 % (11.5-14.5); VENOUS BLOOD GAS BASE EXCESS 6.6 mmol/L (0.0-2.0); VENOUS BLOOD PH 7.44 (7.32-7.43)
--- NOTE | 2017-09-25 15:43 | ED PDOC ---
Arrival/HPI - General Chief Complaint: Trauma Time Seen by Provider: 09/25/17 14:39 Historian: Patient - History of Present Illness Narrative History of Present Illness (Text): 09/25/17 15:40 72yo male with PMhx of brain lymphoma, hep C, diabetes biba for complaint o generalized weakness, lower extremity edema, worsening tremor and falls. The who was by the bedside states symptoms has been ongoing now for few weeks. Notes that the oncologist requested to see patient, but he declined. He fell, while trying to stand up from a couch and he was suppose to go see his oncologist today. The EMS brought him here to [place] because his BP and HR was elevated on the field. the patient however have no acute complaint. He denies chest pain, SOB, diaphoresis, fever, chills, back pain, abdominal pain, nausea, vomiting, focal weakness, dizziness, LOC, hitting his head anywhere. Past Medical History - Provider Review Nursing Documentation Reviewed: Yes - Infectious Disease Hx of Infectious Diseases: None - Cardiac Hx Cardiac Disorders: Yes - Pulmonary Hx Respiratory Disorders: No - Neurological Hx Neurological Disorder: Yes HX Cerebrovascular Accident: Yes (Questionable) - HEENT Hx HEENT Disorder: No - Renal Hx Renal Disorder: No - Endocrine/Metabolic Hx Endocrine Disorders: No - Hematological/Oncological Hx Blood Disorders: Yes Other/Comment: none hodgekin lymphoma on chemo on hold for low wbc. - Integumentary Hx Dermatological Disorder: No - Musculoskeletal/Rheumatological Hx Falls: Yes Other/Comment: edema to lower extremeties - Gastrointestinal Hx Gastrointestinal Disorders: No - Genitourinary/Gynecological Hx Genitourinary Disorders: No - Psychiatric Hx Psychophysiologic Disorder: No Hx Substance Use: No - Surgical History Other/Comment: Brain biopsy March 2017, Lung biopsy January 2017 - Anesthesia Hx Anesthesia Reactions: No Hx Malignant Hyperthermia: No Family/Social History - Physician Review Nursing Documentation Reviewed: Yes Family/Social History: Unknown Family HX Smoking Status: Former Smoker Hx Alcohol Use: No Hx Substance Use: No Allergies/Home Meds Allergies/Adverse Reactions: Allergies No Known Allergies Allergy (Verified 01/14/17 23:09) Home Medications: Home Meds Medication Instructions Recorded Confirmed Famotidine [Pepcid] 20 mg PO DAILY 08/18/17 09/25/17 Levetiracetam [Keppra] 500 mg PO BID 08/18/17 09/25/17 valACYclovir [Valtrex] 500 mg PO DAILY 08/18/17 09/25/17 Acetaminophen with Codeine 1 tab PO Q6 PRN 09/25/17 09/25/17 [Tylenol with Codeine #3 Tablet] Dexamethasone [Decadron] 4 mg PO TID 09/25/17 09/25/17 Sulfamethoxazole/Trimethoprim 1 tab PO MWF 09/25/17 09/25/17 [Sulfamethoxazole-Tmp Ss Tablet] Review of Systems - Physician Review All systems were reviewed & negative as marked: Yes - Review of Systems Constitutional: Normal Eyes: Normal ENT: Normal Respiratory: Normal Cardiovascular: Edema Gastrointestinal: Normal Genitourinary Male: Normal Musculoskeletal: Normal Skin: Normal Neurological: Normal. absent: Dizziness, Focal Weakness Endocrine: Normal Hemo/Lymphatic: Normal Psychiatric: Normal Physical Exam Vital Signs Reviewed: Yes Vital Signs Temp Pulse Resp BP Pulse Ox 09/25/17 22:48 98.6 F 64 18 167/92 H 98 09/25/17 20:29 63 18 129/69 93 L 09/25/17 19:19 60 14 135/78 93 L 09/25/17 17:40 63 16 133/82 94 L 09/25/17 14:56 98.6 F 90 18 130/72 96 Temperature: Afebrile Blood Pressure: Normal Pulse: Regular Respiratory Rate: Normal Appearance: Positive for: Well-Appearing, Non-Toxic, Comfortable Pain Distress: None Mental Status: Positive for: Alert and Oriented X 3 - Systems Exam Head: Present: Atraumatic, Normocephalic Pupils: Present: PERRL Extroacular Muscles: Present: EOMI Conjunctiva: Present: Normal Mouth: Present: Moist Mucous Membranes Neck: Present: Normal Range of Motion Respiratory/Chest: Present: Clear to Auscultation, Good Air Exchange. No: Respiratory Distress, Accessory Muscle Use Cardiovascular: Present: Regular Rate and Rhythm, Normal S1, S2. No: Murmurs Abdomen: Present: Normal Bowel Sounds. No: Tenderness, Distention, Peritoneal Signs Back: Present: Normal Inspection Upper Extremity: Present: Normal Inspection. No: Cyanosis Lower Extremity: Present: Edema (2+bipedal edema), NORMAL PULSES, Normal ROM, Neurovascularly Intact. No: CALF TENDERNESS, Tenderness, Temperature Abnormalties Neurological: Present: GCS=15, CN II-XII Intact, Speech Normal, Motor Func Grossly Intact, Normal Sensory Function Skin: Present: Warm, Dry, Normal Color. No: Rashes Psychiatric: Present: Alert, Oriented x 3, Normal Insight, Normal Concentration Medical Decision Making ED Course and Treatment: 09/25/17 22:57 72yo male in ED for multiple falls He as AAO x3 in ED and neurologically intact. His VS was stable. Lab was reviewed with leukopenia, thrombocytopenia noted. Pt also have increase LDH likely secondary to dehydration from the coagulopathy. His previous labs from August 18 was reviewed and at that time he was neither leukopenic, nor thrombocytopenic. On discussion of the labs with the pt and the , she notes that his Platelet and WBC has been low recently, but she is not sure of how low. Doppler DVT was positive for left posterior tibial vein DVT. Case was DW Dr. Melendez, who is covering pt's oncologist Dr. Dylan fatima from [facility] in [place]. She request that pt be transferred to [facility] . Notes that the admitting Doctor will be Dr. zahra Barksdale. Note that patient is not coagulable at this time secondary to the thrombocytopenia. Pt will probably need IVC filter and neuprogen. The plan to transfer patient was DW both patient and the wide, and they both agreed. - Lab Interpretations Lab Results: 09/25/17 15:15 09/25/17 15:15 Lab Results 09/25/17 19:11: pO2 126 H, VBG pH 7.42, VBG pCO2 50.0, VBG HCO3 32.4 H, VBG Total CO2 33.9 H, VBG O2 Sat (Calc) 99.2 H, VBG Base Excess 6.6 H, VBG Potassium 4.1, Sodium 139.0, Chloride 105.0, Glucose 107, Lactate 1.7, FiO2 21.0 , Venous Blood Potassium 4.1 09/25/17 15:15: pO2 128 H, VBG pH 7.44 H, VBG pCO2 47.0, VBG HCO3 31.9 H, VBG Total CO2 33.3 H, VBG O2 Sat (Calc) 99.2 H, VBG Base Excess 6.6 H, VBG Potassium 4.6, Sodium 139.0, Chloride 105.0, Glucose 118 H, Lactate 2.3 H, FiO2 21.0, Venous Blood Potassium 4.6 09/25/17 15:15: Sodium 138, Chloride 103, Potassium 4.8, Carbon Dioxide 32, Anion Gap 7 L, BUN 30 H, Creatinine 0.8, Est GFR ( Amer) > 60, Est GFR ( Non-Af Amer) > 60, Random Glucose 114 H, Calcium 8.8, Magnesium 1.9, Total Bilirubin 0.8, AST 23, ALT 40, Alkaline Phosphatase 64, Lactate Dehydrogenase 1041 H, Total Creatine Kinase 24 L, Troponin I 0.01, NT-Pro-B Natriuret Pep 126 , Total Protein 6.0, Albumin 3.5, Globulin 2.5, Albumin/Globulin Ratio 1.4 09/25/17 15:15: Urine Color Yellow, Urine Appearance Clear, Urine pH 5.5, Ur Specific [place] 1.025, Urine Protein Trace H, Urine Glucose (UA) Negative, Urine Ketones Negative, Urine Blood Negative, Urine Nitrate Negative, Urine Bilirubin Negative, Urine Urobilinogen 0.2, Ur Leukocyte Esterase Negative, Urine RBC Negative, Urine WBC Negative 09/25/17 15:15: PT 10.1, INR 0.93, APTT 22.1 L 09/25/17 15:15: WBC 2.6 L* D, RBC 4.18, Hgb 13.0 L, Hct 39.9 L, MCV 95.5, MCH 31.1, MCHC 32.6, RDW 14.8 H, Plt Count 36 L*, MPV 9.4, Gran % 77.2 H, Lymph % ( Auto) 14.8 L, [place] % (Auto) 8.0 H, Eos % (Auto) 0.0 L, Baso % (Auto) 0.0, Gran # 2.03, Lymph # 0.4 L, [place] # 0.2, Eos # 0.0, Baso # 0.00 - RAD Interpretation Radiology Orders: 09/25/17 14:45 DUPLEX LOWER EXTRM VEIN BILAT [US] Stat 09/25/17 14:46 CHEST PORTABLE [RAD] Stat 09/25/17 17:55 HEAD W/O CONTRAST [CT] Stat - Medication Orders Current Medication Orders: Discontinued Medications Lorazepam (Ativan) 1 mg IVP ONCE ONE PRN Reason: Protocol Stop: 09/25/17 22:33 Last Admin: 09/25/17 22:30 Dose: 1 mg IVP Administration Document 09/25/17 22:30 YP (Rec: 09/25/17 22:40 YP [id number]) Charges for Administration # of IVP Administrations 1 Disposition/Present on Arrival - Present on Arrival Any Indicators Present on Arrival: No History of DVT/PE: Yes History of Uncontrolled Diabetes: No Urinary Catheter: No History of Decub. Ulcer: No History Surgical Site Infection Following: None - Disposition Have Diagnosis and Disposition been Completed?: Yes Diagnosis: Non-Hodgkin lymphoma, DVT (deep venous thrombosis), Thrombocytopenia, Leukopenia Disposition: Transfer Overlook Disposition Time: 23:00 Condition: GUARDED Forms: [employer] (German)
[2017-09-25 15:46] LABS: URINE RBC NEGATIVE /hpf (0-2); URINE WBC NEGATIVE /hpf (0-6)
[2017-09-25 15:50] LABS: INR 0.93 (0.93-1.08); PARTIAL THROMBOPLASTIN TIME 22.1 Seconds (25.1-36.5)
[2017-09-25 15:53] LABS: ALB/GLOB RATIO 1.4 (1.1-1.8); ALKALINE PHOSPHATASE 64 U/L (38-126); ALT/SGPT 40 U/L (7-56); AST/SGOT 23 U/L (17-59); BILIRUBIN,TOTAL 0.8 mg/dL (0.2-1.3); BLOOD UREA NITROGEN 30 mg/dL (7-21); CALCIUM 8.8 mg/dL (8.4-10.5); CARBON DIOXIDE 32 mmol/L (21-33); CHLORIDE 103 mmol/L (98-107); GFR AFRICAN-AMERICAN > 60; GLUCOSE,RANDOM 114 mg/dL (70-110); MAGNESIUM 1.9 mg/dL (1.7-2.2); POTASSIUM 4.8 mmol/L (3.6-5.0); SODIUM 138 mmol/L (132-148)
[2017-09-25 16:01] LABS: WHITE BLOOD COUNT 2.6 10^3/ul (4.5-11.0)
[2017-09-25 16:03] LABS: TROPONIN I 0.01 ng/mL
--- NOTE | 2017-09-25 18:26 | CT ---
PROCEDURE: CT HEAD WITHOUT CONTRAST. HISTORY: head injury COMPARISON: Comparison is made to the previous study dated 08/18/2017 TECHNIQUE: Axial computed tomography images were obtained through the head/brain without intravenous contrast. Radiation dose: Total exam DLP = 775.01 mGy-cm. This CT exam was performed using one or more of the following dose reduction techniques: Automated exposure control, adjustment of the mA and/or kV according to patient size, and/or use of iterative reconstruction technique. FINDINGS: HEMORRHAGE: No intracranial hemorrhage. BRAIN: There is slightly high attenuation mass lesion at the left posterior frontal lobe measures 2.1 centimeter in the transverse diameter. There is vasogenic edema seen at the left frontal lobe. No evidence of significant mass effect or midline shift. Moderate atrophy and moderate to extensive chronic microvascular white matter ischemic disease are again seen. VENTRICLES: Unremarkable. No hydrocephalus. CALVARIUM: The patient is status post left temporal frontal craniotomy. PARANASAL SINUSES: Unremarkable as visualized. No significant inflammatory changes. MASTOID AIR CELLS: Unremarkable as visualized. No inflammatory changes. OTHER FINDINGS: None. IMPRESSION: Suspicious for mass lesion at the left posterior frontal lobe measures 2.1 centimeter seen on 30 series 2. Residual vasogenic edema at the left frontal lobe. No evidence of acute intracranial hemorrhage.
[2017-09-25 19:23] LABS: VENOUS BLOOD GAS BASE EXCESS 6.6 mmol/L (0.0-2.0); VENOUS BLOOD PH 7.42 (7.32-7.43)
[2017-09-25 20:29] VITALS: RESP 18
[2017-09-25 22:49] VITALS: BP 167/92; PULSE 64; O2SAT 98
--- NOTE | 2017-09-26 10:01 | CARD ---
APPROVED REPORT EKG Measurement Heart [id number] <Conclusion> Normal sinus rhythm Minimal voltage criteria for LVH, may be normal variant No change
--- NOTE | 2017-09-27 14:04 | US ---
HISTORY: Leg pain and swelling. Evaluate for DVT PHYSICIAN(S): Ryan Moffett MD. TECHNIQUE: Duplex sonography and color-flow Doppler with graded compression were used to evaluate the deep venous systems of both lower extremities. FINDINGS: There is isolated acute occlusive thrombus noted in the left posterior tibial veins. The left popliteal vein, left femoral vein, and left common femoral vein are patent and compressible. There is no sonographic evidence for deep venous thrombosis in the visualized segments of the right lower extremity. IMPRESSION: Acute isolated left posterior tibial DVT. A followup venous ultrasound in 7-10 days is recommended.
== END 2017-09-25 22:59 | disposition short-term general hospital (02) ==
LOC: ED 14:26
DX: D69.6 Thrombocytopenia, unspecified (principal); D72.819 Decreased white blood cell count, unspecified; C85.90 Non-Hodgkin lymphoma, unspecified, unspecified site; I82.442 Acute embolism and thrombosis of left tibial vein; E11.9 Type 2 diabetes mellitus without complications; Z87.891 Personal history of nicotine dependence
CPT/HCPCS: 70450; 71010; 80053; 81001; 82550; 82803; 83615; 83735; 83880; 84484; 85025; 85610; 85730; 93005; 93970; 96374; 99285; J2060